=== PATIENT | female | born 1960 | race Caucasian/White ===

== ENCOUNTER 2019-05-21 15:48 | Emergency (ER) | payer BC, SELFPAY ==
[2019-05-21 16:35] VITALS: BP 111/70; PULSE 100; RESP 18; TEMP 36.9; O2SAT 96; BMI 12.9
--- NOTE | 2019-05-21 16:39 | ECG_ITS ---
Measurements Intervals [place] Rate: 87 P: 86 IL: 156 QRS: 91 QRSD: 96 T: 77 QT: 332 QTc: 399 SINUS RHYTHM RIGHT ATRIAL ENLARGEMENT [0.3mV P WAVE] POSSIBLE LEFT ATRIAL ENLARGEMENT [-0.1mV P WAVE IN V1/V2] BORDERLINE RIGHT AXIS DEVIATION [QRS AXIS > 90] POSSIBLE RIGHT VENTRICULAR CONDUCTION DELAY [RSR (QR) IN V1/V2] Compared to ECG 04/29/2018 08:27:43 Atrial abnormality now present Short [place] interval no longer present Electronically Signed On 05-22-2019 13:52:03 CRANE OPERATOR CAB by Winnie Farris M.D. [id number]
--- NOTE | 2019-05-21 16:39 | XR_ITS ---
WS: [id number] Chest PA view, 05/21/2019 Clinical Data: cough/congestion Comparison: PA and lateral chest, 03/04/2019. Findings: No nodules, masses or effusions are seen. The lungs show hyperexpansion especially in the l ower lobes. The heart is normal. The pulmonary vascularity is not increased. No pneumonia or pneumoth orax is seen. The diaphragms are flattened. XR/XR chest 1V portable [id number] Impression: Hyperinflation
[2019-05-21 17:11] LABS: Basophils % 0.3 %; Hematocrit 42.2 % (37.0-47.0); Hemoglobin 13.8 g/dL (11.5-15.3); Lymphocytes % 24.2 %; Mean Corpuscular HGB Conc 32.7 g/dL (30.0-36.0); Mean Corpuscular Hemoglobin 30.4 pg (28.0-34.0); Mean Platelet Volume 9.8 fL (7.4-10.4); Monocytes # 0.8 10^3/uL (0.2-0.9); Monocytes % 6.8 %; Neutrophils # 8.4 10^3/uL (1.8-7.7); Neutrophils % 68.5 %; Nucleated Red Blood Cells % 0 %; Platelet Count 301 10^3/cmm (130-400); Red Blood Count 4.54 10^6/uL (4.1-5.3); Red Cell Distribution Width 14.2 % (12.1-15.1); White Blood Count 12.3 10^3/uL (4.0-10.0)
[2019-05-21 17:36] LABS: Alanine Aminotransferase 7 U/L (0-33); Albumin Level 4.4 g/dL (3.5-5.2); Alkaline Phosphatase 97 IU/L (35-105); Anion Gap 16.4 (5-19); Aspartate Amino Transferase 16 U/L (0-32); Blood Urea Nitrogen 7 mg/dL (6-20); Carbon Dioxide 23 mmol/L (22-29); Chloride 100 mmol/L (98-107); Globulin 3.8 g/dL (1.3-4.6); Glucose 85 mg/dL (74-109); Potassium 3.4 mmol/L (3.5-5.1); Sodium 136 mmol/L (136-145); Total Bilirubin 0.4 mg/dL (0.15-1.2); Total Protein 8.2 g/dL (6.6-8.7)
[2019-05-21 17:37] LABS: Troponin(5th) Baseline 11 ng/mL (0-10)
--- NOTE | 2019-05-21 18:39 | ECG_ITS ---
Measurements Intervals [place] Rate: 99 P: 86 SD: 143 QRS: 91 QRSD: 93 T: 77 QT: 322 QTc: 415 SINUS RHYTHM RIGHT ATRIAL ENLARGEMENT [0.3mV P WAVE] POSSIBLE LEFT ATRIAL ENLARGEMENT [-0.1mV P WAVE IN V1/V2] BORDERLINE RIGHT AXIS DEVIATION [QRS AXIS > 90] POSSIBLE RIGHT VENTRICULAR CONDUCTION DELAY [RSR (QR) IN V1/V2] Compared to ECG 04/29/2018 08:27:43 Atrial abnormality now present Short SD interval no longer present Electronically Signed On 05-22-2019 14:11:38 CARPET LOOM FIXER by Winnie Farris M.D. [id number]
--- NOTE | 2019-05-21 19:31 | ED_ITS ---
Entered by Eloina Moscoso, acting as scribe for May 21, 2019 15:48 HPI - Chest Pain General: Chief Complaint: Chest Pain Stated Complaint: chest pains Time Seen by Provider: 05/21/19 19:31 Source: patient and family Mode of arrival: ambulatory History of Present Illness: HPI narrative: 59 y/o female presents to the ED with complaint of chest pain. Pt states she has had this pain all day. It is described as an ache in the left chest/rib area. Pt states this pain remains constant at 7/10. She has a hx of COPD and emphysema. MD complaint: chest discomfort Onset (ago): day(s) (today) Timing of current episode: constant and still present Onset: during rest Pain location: left chest Pain radiation: none Pain scale (0-10): 7 Quality: aching Relieving factors: nothing Associated symptoms: Deny abdominal pain, dyspnea, fever(s) or palpitations Review of Systems Const: Denies: fever or chills Eyes: Denies: change in vision ENMT: Denies: throat pain or mouth pain Card: Reports: chest pain; Denies: palpitations Resp: Denies: shortness of breath GI: Denies: abdominal pain or heartburn/indigestion : Denies: difficulty urinating Musc: Denies: back pain or joint pain Skin/Breast: Denies: rash Neuro: Denies: headache or behavioral changes Psych: Denies: depression Endo: Denies: excessive urination Sandeep/Lymph: Denies: easy bruising All/Imm: Denies: hives PFSH ED PFSH: Statuses (acute, chronic, etc) shown below reflect problem list status as previously entered and may not be historically accurate Medical History Alveolar emphysema of lung (Acute) COPD (chronic obstructive pulmonary disease) (Acute) Social History Smoking and tobacco status: current every day smoker Physical Exam Const: COMMON NORMALS: no apparent distress, oriented x3 and healthy appearing HENMT: COMMON NORMALS: normocephalic and external nose normal HEAD & SCALP: normocephalic NOSE: external nose normal Eye: COMMON NORMALS: PERRL PUPIL: Yes PERRL Neck/C-Spine: COMMON NORMALS: full ROM and no lymphadenopathy Chest: COMMONS NORMALS: inspection of chest normal; negative for palpation of chest normal (point tenderness to left lateral ) Resp: COMMON NORMALS: normal respiratory effort, no use of accessory muscles and clear to auscultation bilaterally AUSCULTATION: clear to auscultation bilaterally Cardio: COMMON NORMALS: regular rate and regular rhythm RATE: regular rate RHYTHM: regular rhythm GI: COMMON NORMALS: normal to inspection, nondistended, normoactive bowel sounds, soft to palpation, non-tender and no masses PALPATION: Yes soft Back/Pelvis: THORACIC SPINE/UPPER BACK: Yes normal to inspection Extremity: COMMON NORMALS: normal to inspection, full ROM and normal capillary refill Neuro: COMMON NORMALS: oriented x3 Psych: COMMON NORMALS: mental status grossly normal and cooperative Skin: COMMON NORMALS: no rashes or lesions noted GENERAL SKIN EXAM: no rashes or lesions noted Course Vital Signs: Vital signs: Vital Signs Temperature 98.5 F 05/21/19 16:35 Pulse Rate 100 05/21/19 16:35 Respiratory Rate 18 05/21/19 16:35 Blood Pressure 111/70 05/21/19 16:35 Pulse Oximetry 96 05/21/19 16:35 MDM - Chest Pain MDM Narrative: Medical decision making narrative: Patient presents with chest pain is likely muscular in nature. She is point tender over left chest wall this is the same pain she is having. She has no signs of cardiac cause and troponins are normal. Patient has no signs of pulmonary embolism or pneumonia. Patient is stable for discharge and is to follow-up with primary care doctor in 3 to 5 days and return if worsening. Lab Data: Labs: Lab Results 05/21/19 05/21/19 05/21/19 Range/Units 17:00 17:00 17:00 WBC 12.3 H (4.0-10.0) 10^3/ uL RBC 4.54 (4.1-5.3) 10^6/u L Hgb 13.8 (11.5-15.3) g/dL Hct 42.2 (37.0-47.0) % MCV 93.0 (81-99) fL MCH 30.4 (28.0-34.0) pg MCHC 32.7 (30.0-36.0) g/dL RDW 14.2 (12.1-15.1) % Plt Count 301 (130-400) 10^3/c mm MPV 9.8 (7.4-10.4) fL Neut % (Auto) 68.5 % Lymph % (Auto) 24.2 % [place] % (Auto) 6.8 % Eos % (Auto) 0.0 % Baso % (Auto) 0.3 % Neut # (Auto) 8.4 H (1.8-7.7) 10^3/u L Lymph # (Auto) 3.0 (0.8-4.8) 10^3/u L [place] # (Auto) 0.8 (0.2-0.9) 10^3/u L Eos # (Auto) 0.0 (0.0-0.8) 10^3/u L Baso # (Auto) 0.0 (0.0-0.1) 10^3/u L Nucleated RBC % (a uto) 0 % Nucleated RBCs # 0.0 /100WBC Sodium 136 (136-145) mmol/L Potassium 3.4 L (3.5-5.1) mmol/L Chloride 100 (98-107) mmol/L Carbon Dioxide 23 (22-29) mmol/L Anion Gap 16.4 (5-19) BUN 7 (6-20) mg/dL Creatinine 0.6 (0.5-0.9) mg/dL GFR Calculation 103.0 (90-130) mL/min Glucose 85 (74-109) mg/dL Calcium 10.0 (8.6-10.0) mg/Dl Total Bilirubin 0.4 (0.15-1.2) mg/dL AST 16 (0-32) U/L ALT 7 (0-33) U/L Alkaline Phosphata se 97 (35-105) IU/L Troponin T Baselin e 11 H (0-10) ng/mL Troponin T 120 Min taran (0-10) ng/mL Delta Troponin T (0-10) ABS# Total Protein 8.2 (6.6-8.7) g/dL Albumin 4.4 (3.5-5.2) g/dL Globulin 3.8 (1.3-4.6) g/dL 05/21/19 Range/Units 19:55 WBC (4.0-10.0) 10^3/ uL RBC (4.1-5.3) 10^6/u L Hgb (11.5-15.3) g/dL Hct (37.0-47.0) % MCV (81-99) fL MCH (28.0-34.0) pg MCHC (30.0-36.0) g/dL RDW (12.1-15.1) % Plt Count (130-400) 10^3/c mm MPV (7.4-10.4) fL Neut % (Auto) % Lymph % (Auto) % [place] % (Auto) % Eos % (Auto) % Baso % (Auto) % Neut # (Auto) (1.8-7.7) 10^3/u L Lymph # (Auto) (0.8-4.8) 10^3/u L [place] # (Auto) (0.2-0.9) 10^3/u L Eos # (Auto) (0.0-0.8) 10^3/u L Baso # (Auto) (0.0-0.1) 10^3/u L Nucleated RBC % (a uto) % Nucleated RBCs # /100WBC Sodium (136-145) mmol/L Potassium (3.5-5.1) mmol/L Chloride (98-107) mmol/L Carbon Dioxide (22-29) mmol/L Anion Gap (5-19) BUN (6-20) mg/dL Creatinine (0.5-0.9) mg/dL GFR Calculation (90-130) mL/min Glucose (74-109) mg/dL Calcium (8.6-10.0) mg/Dl Total Bilirubin (0.15-1.2) mg/dL AST (0-32) U/L ALT (0-33) U/L Alkaline Phosphata se (35-105) IU/L Troponin T Baselin e (0-10) ng/mL Troponin T 120 Min taran 12.01 H (0-10) ng/mL Delta Troponin T 1.01 (0-10) ABS# Total Protein (6.6-8.7) g/dL Albumin (3.5-5.2) g/dL Globulin (1.3-4.6) g/dL Imaging Data^: CXR: Attestation: I personally reviewed and interpreted this imaging study as follows: My impression: no acute abnormality EKG Data^: EKG 1: Attestation: I personally reviewed and interpreted this EKG as follows: EKG interpretation date: 05/21/19 EKG interpretation time: 16:39 Interpretation: nsr hr [address] or t wave abnormalities EKG 2: Attestation: I personally reviewed and interpreted this EKG as follows: EKG interpretation date: 05/21/19 EKG interpretation time: 19:11 Interpretation: nsr hr [address] or t wave abnormalties Discharge Plan Discharge Patient Disposition: Home, Self-Care Clinical Impression: Chest wall pain Condition: Stable Prescriptions: New EC-Naprosyn 500 mg tablet,delayed release (DR/EC) 500 mg PO BID PRN (Reason: pain) Qty: 20 RF: 0 Discharge Orders: Discharge Order (Routine); Ordered 05/21/19 Ordered By: Sly Grimes Referrals: Irina Caruso, LEACHER-C [Primary Care Provider] - 4-7 days Discharge Diet: Advance as tolerated Discharge Activity: Resume usual activity Coding Level of Care Code ED Pattern Cutter for Chg Fwd Exam Problem Focused The documentation recorded by the Danis joe Ashley, accurately reflects the service I personally performed and the decisions made by Cornelio meek Korby, MD May 21, 2019 15:48
[2019-05-21 20:18] LABS: Troponin 5 2HR 12.01 ng/mL (0-10)
[2019-05-21 20:20] LABS: Troponin 5 2HR Delta 1.01 ABS# (0-10)
[2019-05-21] MEDS: HYDROcodone-acetaminophen 7.5-325 mg Tablet 1 TAB PO (20:27)
[2019-05-21 20:30] VITALS: BP 99/74; PULSE 86; RESP 14; O2SAT 94
[2019-05-21 21:06] VITALS: BP 103/81; PULSE 91; RESP 16; TEMP 36.5; O2SAT 94
== END 2019-05-21 21:10 | disposition home or self-care (01) ==
PROVIDERS: Physician Assistant; Emergency Provider Emergency Medicine; Family Provider Nurse Practitioner; PCP Nurse Practitioner
DX: R07.89 Other chest pain (principal); J44.9 Chronic obstructive pulmonary disease, unspecified; F17.210 Nicotine dependence, cigarettes, uncomplicated
CPT/HCPCS: 36415; 71045; 80053; 84484; 85025; 93005; 99282

== ENCOUNTER → 2019-09-18 15:56 | Outpatient (BNVA) | payer BC, SELFPAY | PROVIDERS: Family Provider Nurse Practitioner; PCP Nurse Practitioner; Visit Provider Nurse Practitioner | DX: R05 Cough (principal); J44.1 Chronic obstructive pulmonary disease with (acute) exacerbation | CPT/HCPCS: 71046 ==

== ENCOUNTER 2019-10-16 12:42 | Outpatient (CLI) | payer BC, SELFPAY ==
--- NOTE | 2019-10-16 13:00 | CT_ITS ---
WS: [id number] CT CHEST WITH INTRAVENOUS CONTRAST HISTORY: Abnormal chest radiograph. COPD. TECHNIQUE: Contiguous 5 mm axial imaging performed on the thorax. Coronal and sagittal reformats are submitted. All CT scans at [facility] use at least one of these dose optimization techniq ues: automated exposure control; mA and/or kV adjustment per patient size (includes targeted exams wh ere dose is matched to clinical indication); or iterative reconstruction. CONTRAST: Omnipaque 300; 75 mL IV. DLP: 303.19 mGy.cm COMPARISON: 04/08/2018 and chest radiograph 09/18/2019 Lungs and central airway: Severe pulmonary hyperexpansion and emphysema. Biapical pleural thickening and scarring is stable. New groundglass and subsolid opacifications and scattered irregular solid opa cification are noted in the mid and lower lungs. Most significant at the lung bases and greatest on t he LEFT. Additional irregular consolidation noted at the lingula. There is chronic atelectasis of the RIGHT middle lobe. Multilobar bronchiectasis. Pleura: Normal. No pleural effusion. Heart and pericardium: Normal size heart. No pericardial effusion. Mediastinum and mirna: 9 mm RIGHT hilar lymph node. No significant adenopathy. Vessels: Mild atherosclerosis aorta. Pulmonary artery size is normal. Chest wall and lower neck: Subcentimeter LEFT thyroid nodule. Upper abdomen: Negative. Osseous structures: Increase in the thoracic kyphosis. No osteoblastic or osteolytic bone disease. CT/CT chest w con* [id number] IMPRESSION: 1. Severe chronic emphysema. 2. New multi lobar areas of groundglass attenuation and irregular consolidatio ns, most significant at the LEFT lung base. Favor this is probably acute inflam mation or pneumonia superimposed on the chronic lung disease. Recommend follow- up chest CT in 3 months to document resolution or progression. 3. Stable chronic atelectasis RIGHT middle lobe. 4. Multi lobar bronchiectasis.
[2019-10-16] MEDS: iohexol 300 mg/mL 100 mL Btl IV (13:51)
== END 2019-10-16 12:43 | disposition home or self-care (01) ==
LOC: RAD 12:46
PROVIDERS: Family Provider Nurse Practitioner; PCP Nurse Practitioner; Visit Provider Nurse Practitioner
DX: R93.89 Abnormal findings on diagnostic imaging of other specified body structures (principal); J43.9 Emphysema, unspecified; J98.11 Atelectasis; J47.9 Bronchiectasis, uncomplicated
CPT/HCPCS: 71260

== ENCOUNTER → 2019-10-22 14:52 | Outpatient (BNVA) | payer BC, SELFPAY | PROVIDERS: Family Provider Nurse Practitioner; PCP Nurse Practitioner; Visit Provider Nurse Practitioner | DX: E55.9 Vitamin D deficiency, unspecified (principal); B02.29 Other postherpetic nervous system involvement | CPT/HCPCS: 80053; 82306; 82607; 83735 ==

== ENCOUNTER → 2019-12-09 11:25 | Outpatient (BNVA) | payer BC, SELFPAY | PROVIDERS: Family Provider Nurse Practitioner; PCP Nurse Practitioner; Visit Provider Nurse Practitioner | DX: R05 Cough (principal); J44.9 Chronic obstructive pulmonary disease, unspecified | CPT/HCPCS: 71046; 80053; 85025; 87635 ==

== ENCOUNTER 2020-01-20 08:38 | Outpatient (CLI) | payer BC, SELFPAY ==
--- NOTE | 2020-01-20 09:00 | CT_ITS ---
WS: [id number] CT CHEST WITH INTRAVENOUS CONTRAST HISTORY: abnormal CT chest October 2019 TECHNIQUE: Contiguous 5 mm axial imaging performed on the thorax. Coronal and sagittal reformats are submitted. All CT scans at [facility] use at least one of these dose optimization techniq ues: automated exposure control; mA and/or kV adjustment per patient size (includes targeted exams wh ere dose is matched to clinical indication); or iterative reconstruction. CONTRAST: Omnipaque 300; 95 mL IV. DLP: 585.0 mGycm COMPARISON: 10/16/2019, 04/08/2018 Lungs and central airway: Severe chronic emphysema. There are numerous areas of irregular nodular den sities and multiple ill-defined nodules within both lungs. Some of these nodules have improved since 10/16/2019. There are new areas of airspace disease and consolidation and nodularity which are multi lo bar. Extensive biapical pleural thickening. Partial atelectasis and bronchiectasis in the RIGHT middl e lobe is similar to prior studies. Benign granuloma RIGHT lower lobe. 5 mm round nodule in the perip andres of the LEFT lower lobe, image 46 of series 3 has increased slightly in size and is more rounded. Pleura: Normal. No pleural effusion. Heart and pericardium: Normal size heart with no pericardial effusion. Mediastinum and mirna: No change in the 9 mm RIGHT suprahilar lymph node. Additional smaller hilar lym ph nodes are still evident. Vessels: Mild atherosclerosis aorta. No aneurysm. Normal size pulmonary artery. Chest wall and lower neck: Subcentimeter LEFT thyroid nodule is stable over multiple prior studies. Upper abdomen: Prior cholecystectomy. Osseous structures: Increase in thoracic kyphosis. Mild osteopenia. CT/CT chest w con* [id number] IMPRESSION: 1. Severe chronic emphysema. 2. Continued multi lobar opacifications with nodularity, groundglass attenuati on and ill-defined opacifications. Some of these opacifications have improved s hilaria 10/16/2019 but there are new areas of opacification. More rounded nodule sendy suring 5 mm LEFT lower lobe. Recommend [address] follow-up of IV contras t. Fever majority of these changes are probably postinflammatory. Early neoplas m is not excluded. 3. Partial atelectasis and bronchiectasis RIGHT middle lobe. 4. Prior cholecystectomy. 5. Indeterminate but stable RIGHT hilar lymph node at 9 mm.
[2020-01-20] MEDS: iohexol 300 mg/mL 100 mL Btl IV (09:08)
== END 2020-01-20 08:39 | disposition home or self-care (01) ==
LOC: RADWPI 08:44
PROVIDERS: Family Provider Nurse Practitioner; PCP Nurse Practitioner; Visit Provider Nurse Practitioner
DX: R93.89 Abnormal findings on diagnostic imaging of other specified body structures (principal); J43.9 Emphysema, unspecified; R59.9 Enlarged lymph nodes, unspecified; J98.11 Atelectasis; J47.9 Bronchiectasis, uncomplicated
CPT/HCPCS: 71260; Q9967

== ENCOUNTER → 2020-02-09 14:06 | Outpatient (BNVA) | payer BC, SELFPAY | PROVIDERS: Family Provider Nurse Practitioner; PCP Nurse Practitioner; Visit Provider Nurse Practitioner | DX: J44.1 Chronic obstructive pulmonary disease with (acute) exacerbation (principal) | CPT/HCPCS: 71046 ==

== ENCOUNTER 2020-02-15 12:51 | Emergency (ER) | payer BC, SELFPAY ==
--- NOTE | 2020-02-15 13:03 | XRR_ITS ---
PROCEDURE INFORMATION: Exam: XR Chest, 1 View Exam date and time: 02/15/2020 2:21 PM Age: 59 years old Clinical indication: Patient HX: Chest wall pain with cough; Additional info: Cp TECHNIQUE: Imaging protocol: XR of the chest Views: 1 view. COMPARISON: CR XR chest 2V* [id number] 02/09/2020 2:05 PM FINDINGS: Lungs: COPD, interstitial disease, and bronchiectasis. Mild bilateral airspace disease with interval improvement in right perihilar airspace disease. Pleural space: No significant pleural effusion. Heart/Mediastinum: Enlargement of the central pulmonary arteries. Diminished heart size. Bones/joints: Osteopenia and degenerative change. Other findings: . XR/XR chest 1V portable [id number] IMPRESSION: 1. COPD, interstitial disease, and bronchiectasis. 2. Mild bilateral airspace disease with interval improvement in right perihilar airspace disease.
[2020-02-15 13:09] VITALS: BP 97/65; PULSE 74; RESP 25; TEMP 36.7; O2SAT 99; BMI 12.4
[2020-02-15 14:55] LABS: Basophils # 0.1 10^3/uL (0.0-0.1); Basophils % 0.4 %; Hematocrit 39.4 % (37.0-47.0); Hemoglobin 12.9 g/dL (11.5-15.3); Lymphocytes # 2.5 10^3/uL (0.8-4.8); Lymphocytes % 17.8 %; Mean Corpuscular HGB Conc 32.7 g/dL (30.0-36.0); Mean Corpuscular Hemoglobin 29.9 pg (28.0-34.0); Mean Corpuscular Volume 91.4 fL (81-99); Mean Platelet Volume 9.1 fL (7.4-10.4); Monocytes # 0.8 10^3/uL (0.2-0.9); Monocytes % 5.7 %; Neutrophils # 10.41 10^3/uL (1.8-7.7); Neutrophils % 75.7 %; Nucleated Red Blood Cells % 0 %; Platelet Count 426 10^3/cmm (130-400); Red Blood Count 4.31 10^6/uL (4.1-5.3); Red Cell Distribution Width 16.4 % (12.1-15.1); White Blood Count 13.8 10^3/uL (4.0-10.0)
[2020-02-15] MEDS: ondansetron 2 mg/ML SDV 2 mL 4 MG IVP (14:58)
[2020-02-15 15:00] VITALS: RESP 22
[2020-02-15] MEDS: morphine 4 mg/mL SDV 1 mL IVP (15:00)
[2020-02-15 15:08] VITALS: PULSE 93; RESP 20; O2SAT 94
[2020-02-15] MEDS: ipratropium-albuterol 3 mL Neb INHALATION (15:08)
[2020-02-15 15:13] VITALS: PULSE 94
--- NOTE | 2020-02-15 15:19 | W.ED.SOB ---
HPI - SOB/Dyspnea General: Chief Complaint: Shortness of Breath/Dyspnea Stated Complaint: SOB Time Seen by Provider: 02/15/20 13:39 Source: patient Mode of arrival: ambulatory Limitations: no limitations History of Present Illness: HPI Narrative: 59-year-old female states she has had a cough along with chest pains and fevers over the last 4 to 5 days. Patient was recently seen and diagnosed a right-sided pneumonia and placed on antibiotics. She states she is continued to have a severe cough and a sharp right-sided chest pain is worse with her cough and with palpation. Patient here is in no distress and not requiring any oxygen. She denies any vomiting or diarrhea. Denies any worsening improving factors at this time. Associated symptoms: Reports chest pain; Deny abdominal pain, fever(s), nausea or vomiting Review of Systems Const: Denies: fever(s), chills, body aches or change in appetite Eyes: Denies: blurry vision or eye discomfort ENMT: Denies: throat pain or dental pain Card: Reports: chest pain Resp: Reports: dyspnea and non-productive cough GI: Denies: abdominal pain, nausea, vomiting or diarrhea : Denies: dysuria Musc: Denies: neck pain or back pain Skin/Breast: Denies: rash Neuro: Denies: headache(s) Psych: Denies: depression Sandeep/Lymph: Denies: easy bruising All/Imm: Denies: urticaria PFSH ED PFSH: Medical History (Updated 02/15/20 @ 15:41 by Syl Grimes MD) Alveolar emphysema of lung COPD (chronic obstructive pulmonary disease) Neuralgia, post-herpetic Surgical History History of cholecystectomy History of hysterectomy Family History Other CAD (coronary artery disease) COPD (chronic obstructive pulmonary disease) Cancer Denies family history of Bleeding disorder Social History Smoking and tobacco status: current every day smoker Second hand smoke exposure: Yes Smoking risk assessment/counseling performed?: Yes Alcohol intake: never Desire information about alcohol rehabilitation?: No Counseling given: No Desire information about substance/drug rehabilitation?: No Counseling given: No Adopted: No Caregiver/support person: No Lives independently: Yes Household members: spouse Marital status: Number of children: 3 service: No Current occupational status: employed Current occupation: [employer] History of recent travel: No Current gender identity: Female Physical Exam Const: COMMON NORMALS: no acute distress, patient oriented x3 and healthy appearing HENMT: COMMON NORMALS: normocephalic and atraumatic HEAD & SCALP: normocephalic and atraumatic Eye: COMMON NORMALS: Equal, round and reactive pupils present and EOMs intact bilaterally PUPIL: Yes Equal, round and reactive pupils present Neck/C-Spine: COMMON NORMALS: full ROM and supple Chest: COMMONS NORMALS: normal inspection of the chest and normal palpation of entire chest wall Resp: COMMON NORMALS: normal respiratory effort, No retractions, No use of accessory muscles and clear to auscultation bilaterally AUSCULTATION: clear to auscultation bilaterally Cardio: COMMON NORMALS: regular rate, regular rhythm and No murmurs present (Cardio) RATE: regular rate RHYTHM: regular rhythm GI: COMMON NORMALS: Normal to inspection, nondistended, normoactive bowel sounds present, Soft to palpation, non-tender and no masses PALPATION: Yes Soft to palpation Extremity: COMMON NORMALS: normal to inspection and full ROM Neuro: COMMON NORMALS: patient oriented x3, moves all extremities and no focal motor deficits Psych: COMMON NORMALS: mental status grossly normal, Normal thought process present and cooperative THOUGHT PROCESS: Normal thought process present Skin: COMMON NORMALS: no rashes or lesions noted and no wounds GENERAL SKIN EXAM: no rashes or lesions noted Course Vital Signs: Vital signs: Vital Signs Temperature 98.0 F 02/15/20 13:09 Pulse Rate 94 02/15/20 15:13 Respiratory Rate 20 H 02/15/20 15:08 Blood Pressure 97/65 02/15/20 13:09 Pulse Oximetry 94 02/15/20 15:08 MDM - SOB/Dyspnea MDM Narrative: Medical decision making narrative: 59-year-old female who presents here with lateral chest pain along with cough and dyspnea. X-ray shows much improved pneumonia and she is to continue antibiotics. She is point tender on exam her pain is likely from coughing. She has no signs of pulmonary embolism. Patient's EKG here is normal. She is to continue antibiotics we will place her on steroids along with pain meds for home. She is to follow-up with PCP in 3 to 5 days return if worsening. Lab Data: Labs: Lab Results 02/15/20 02/15/20 Range/Units 14:44 14:44 WBC 13.8 H (4.0-10.0) 10^3/ uL RBC 4.31 (4.1-5.3) 10^6/u L Hgb 12.9 (11.5-15.3) g/dL Hct 39.4 (37.0-47.0) % MCV 91.4 (81-99) fL MCH 29.9 (28.0-34.0) pg MCHC 32.7 (30.0-36.0) g/dL RDW 16.4 H (12.1-15.1) % Plt Count 426 H (130-400) 10^3/c mm MPV 9.1 (7.4-10.4) fL Neut % (Auto) 75.7 % Lymph % (Auto) 17.8 % Long % (Auto) 5.7 % Eos % (Auto) 0.0 % Baso % (Auto) 0.4 % Neut # (Auto) 10.41 H (1.8-7.7) 10^3/u L Lymph # (Auto) 2.5 (0.8-4.8) 10^3/u L Long # (Auto) 0.8 (0.2-0.9) 10^3/u L Eos # (Auto) 0.0 (0.0-0.8) 10^3/u L Baso # (Auto) 0.1 (0.0-0.1) 10^3/u L Nucleated RBC % (a uto) 0 % Nucleated RBCs # 0.0 /100WBC Sodium 134 L (136-145) mmol/L Potassium 4.6 (3.5-5.1) mmol/L Chloride 100 (98-107) mmol/L Carbon Dioxide 21 L (22-29) mmol/L Anion Gap 17.6 (5-19) BUN 15 (6-20) mg/dL Creatinine 0.7 (0.5-0.9) mg/dL GFR Calculation 86.2 L (90-130) mL/min Glucose 90 (65-115) mg/dL Calculated Osmolal ity 278 L (285-295) mOsm/k g Calcium 10.0 (8.5-10.5) mg/dL Total Bilirubin 0.3 (0.15-1.2) mg/dL AST 11 (0-32) U/L ALT 7 (0-33) U/L Alkaline Phosphata se 104 (35-105) IU/L NT-Pro-B Natriuret Pep 52 (0-125) pg/mL Total Protein 7.7 (6.6-8.7) g/dL Albumin 3.2 L (3.5-5.2) g/dL Globulin 4.5 (1.3-4.6) g/dL Imaging Data^: CXR: Radiologist's impression: [address] [address] XRay Report Signed Patient: Allison Peoples Unit #: [id number] : 1960 Age/Sex: 59 / F ADM Date: 02/15/20 Loc: ER Room/Bed: Attending Dr: Ordering Provider/Ordering MD: Sly Grimes MD Date of Service: 02/15/20 Procedure(s): XR chest 1V portable [id number] Accession Number(s): [id number] Report Number: [id number] PROCEDURE INFORMATION: Exam: XR Chest, 1 View Exam date and time: 02/15/2020 2:21 PM Age: 59 years old Clinical indication: Patient HX: Chest wall pain with cough; Additional info: Cp TECHNIQUE: Imaging protocol: XR of the chest Views: 1 view. COMPARISON: CR XR chest 2V* [id number] 02/09/2020 2:05 PM FINDINGS: Lungs: COPD, interstitial disease, and bronchiectasis. Mild bilateral airspace disease with interval improvement in right perihilar airspace disease. Pleural space: No significant pleural effusion. Heart/Mediastinum: Enlargement of the central pulmonary arteries. Diminished heart size. Bones/joints: Osteopenia and degenerative change. Other findings: . XR/XR chest 1V portable [id number] IMPRESSION: 1. COPD, interstitial disease, and bronchiectasis. 2. Mild bilateral airspace disease with interval improvement in right perihilar airspace disease. EKG Data^: EKG 1: Attestation: I personally reviewed and interpreted this EKG as follows: EKG Interpretation Date: 02/15/20 EKG interpretation time: 14:46 Interpretation: sinus tach hr [address] or t wave abnormalities qrs 97 qtc 455 Discharge Plan Discharge Patient Disposition: Home Clinical Impression: Community acquired pneumonia COPD (chronic obstructive pulmonary disease) Qualifiers: COPD type: unspecified COPD Qualified Code(s): J44.9 - Chronic obstructive pulmonary disease, unspecified Condition: Stable Prescriptions: New EC-Naprosyn 500 mg tablet,delayed release (DR/EC) 500 mg PO BID PRN (Reason: pain) Qty: 20 RF: 0 [place] 5-325 mg tablet 1 tab PO Q6H PRN (Reason: pain) Qty: 14 RF: 0 prednisone 50 mg tablet 50 mg PO DAILY Qty: 5 RF: 0 No Action Spiriva with HandiHaler 18 mcg capsule, w/inhalation device 1 ea INHALATION DAILY RF: 0 doxycycline hyclate [Vibramycin] 100 mg capsule 100 mg PO BID Qty: 20 RF: 0 budesonide [Pulmicort] 0.5 mg/2 mL suspension for nebulization 0.5 mg INHALATION BID Qty: 120 RF: 0 albuterol sulfate 2.5 mg /3 mL (0.083 %) solution for nebulization 2.5 mg inhalation Q4H Qty: 300 RF: 0 gabapentin 300 mg capsule 300 mg PO BID Qty: 60 RF: 2 Advair Diskus 500-50 mcg/dose blister with device 1 inh INHALATION BID RF: 0 Discharge Orders: Discharge Order (Routine); Ordered 02/15/20 Ordered By: Sly Grimes Referrals: Irina Caruso, CAREER SERVICES COORDINATOR-C [Primary Care Provider] - 1-3 days Discharge Diet: Advance as tolerated Discharge Activity: Resume usual activity Patient Instructions: Bacterial Pneumonia (ED) Coding Level of Care Code ED Personalized Living Assistant for Chg Fwd Exam Comprehensive
[2020-02-15 15:23] LABS: Alanine Aminotransferase 7 U/L (0-33); Albumin Level 3.2 g/dL (3.5-5.2); Alkaline Phosphatase 104 IU/L (35-105); Anion Gap 17.6 (5-19); Aspartate Amino Transferase 11 U/L (0-32); Blood Urea Nitrogen 15 mg/dL (6-20); Carbon Dioxide 21 mmol/L (22-29); Chloride 100 mmol/L (98-107); Creatinine Clr Calc Pharmacy 48.8909; Globulin 4.5 g/dL (1.3-4.6); Glomerular Filtration Rate 86.2 mL/min (90-130); Glucose 90 mg/dL (65-115); NT Pro B Type Natriuretic Pept 52 pg/mL (0-125); Osmolality Calculated 278 mOsm/kg (285-295); Potassium 4.6 mmol/L (3.5-5.1); Sodium 134 mmol/L (136-145); Total Bilirubin 0.3 mg/dL (0.15-1.2); Total Protein 7.7 g/dL (6.6-8.7)
[2020-02-15 16:15] VITALS: BP 93/67; PULSE 95; RESP 24; O2SAT 91
[2020-02-15] MEDS: ketorolac 30 mg/mL INJ 15 MG IVP (16:18)
[2020-02-18 00:01] LABS: Quest SARS-CoV-2 RNA NOT DETECTED (NOT DETECTED)
--- NOTE | 2020-02-18 09:29 | PC.NURSE ---
Pt called and notified of negative COVID result.
== END 2020-02-15 16:15 | disposition home or self-care (01) ==
PROVIDERS: Emergency Provider Emergency Medicine; PCP Nurse Practitioner
DX: J44.9 Chronic obstructive pulmonary disease, unspecified (principal); F17.210 Nicotine dependence, cigarettes, uncomplicated
CPT/HCPCS: 12345; 36415; 71045; 80053; 83880; 85025; 87040; 87635; 94640; 96374; 96375; 99282; 99283; J1885; J2270; J2405; J2930

== ENCOUNTER 2020-02-29 15:21 | Emergency (ER) | payer BC, SELFPAY ==
[2020-02-29 15:21] VITALS: BP 110/63; PULSE 91; RESP 16; TEMP 36.7; O2SAT 97; BMI 12.1
--- NOTE | 2020-02-29 15:32 | ECG_ITS ---
[facility] Test Date: 2020-02-29 Pat Name: Allison Peoples Department: Room: Gender: Female Physician Aide: : 1960 Requested By: Cony Adballa Order Number: [id number] Peg MD: Ben Vora M.D. Measurements Intervals [place] Rate: 82 P: 81 MN: 97 QRS: 86 QRSD: 94 T: 72 QT: 335 QTc: 393 Interpretive Statements SINUS RHYTHM WITH SHORT MN INTERVAL Compared to ECG 05/21/2019 19:11:19 Short MN interval now present Atrial abnormality no longer present Electronically Signed On 02-29-2020 19:50:53 CDT by Ben Vora M.D. [id number]
--- NOTE | 2020-02-29 15:33 | XRR_ITS ---
PROCEDURE INFORMATION: Exam: XR Chest, 1 View Exam date and time: 02/29/2020 3:52 PM Age: 59 years old Clinical indication: Cough and shortness of breath; Additional info: Chest pain TECHNIQUE: Imaging protocol: XR of the chest Views: 1 view. COMPARISON: CR (CHEST, ) 02/15/2020 2:14 PM FINDINGS: Lungs: There are lung changes with COPD with hyperinflation, chronic interstitial lung disease, multiple lucencies compatible with bullous change, and bronchiectasis. There are several nodular densities in the lung bases. One in lateral left chest is unchanged. There is better defined more medial nodule in left lung base. There is unchanged nodule in right lung base. Pleural space: No significant visible pleural effusion. No pneumothorax. Heart/Mediastinum: No significant cardiomegaly. Bones/joints: No acute finding. XR/XR chest 1V portable [id number] IMPRESSION: Extensive chronic lung changes. Several nodular densities in lung bases 1 of which in more medial left lung base is not well visualized on prior examination 02/15/2020. Recommend follow-up.
--- NOTE | 2020-02-29 15:33 | CTR_ITS ---
PROCEDURE INFORMATION: Exam: CT Head Without Contrast Exam date and time: 02/29/2020 3:46 PM Age: 59 years old Clinical indication: Syncope and collapse; Patient HX: Syncope v seizure w n/v; Additional info: Seizure vs syncope TECHNIQUE: Imaging protocol: Computed tomography of the head without contrast. Radiation optimization: All CT scans at this facility use at least one of these dose optimization techniques: automated exposure control; mA and/or kV adjustment per patient size (includes targeted exams where dose is matched to clinical indication); or iterative reconstruction. COMPARISON: No relevant prior studies available. RADIATION DOSE METRICS: Total DLP (mGy-cm): 667.38 FINDINGS: Brain: There is no acute intracranial hemorrhage. No extra-axial fluid collection. No evidence of acute infarct. [place] white differentiation is intact. There is no evidence of mass. There is no mass effect or midline shift. Cerebral ventricles: No ventriculomegaly. Bones/joints: No acute fracture. Paranasal sinuses: Visualized sinuses are unremarkable. No fluid levels. Mastoid air cells: No significant mastoid effusion. Soft tissues: Unremarkable as visualized. CT/CT head wo con* [id number] IMPRESSION: No evidence of acute intracranial abnormality. No acute hemorrhage. No evidence of mass or acute infarct. Radiation Dose CTDIVOL = (mGy): DLP = 667.38 (mGy-cm)
--- NOTE | 2020-02-29 15:57 | ED_ITS ---
Documented by User: Cony Patrick MD 03/02/20 21:52 HPI - Nausea/Vomiting/Diarrhea General: Chief complaint: Nausea/Vomiting/Diarrhea Stated complaint: N/V; SYNCOPE Time Seen by Provider: 02/29/20 15:27 History of Present Illness: HPI Narrative: This patient is a 59-year-old female who presents today with a syncopal episode and vomiting. Apparently she was doing okay this morning and went [facility]. EMS says that her said that she was standing by the couch, grabbed at her chest and complained of chest pain and then fell backwards onto the couch. Per what EMS got from the she had what sounded like shaking and possible seizure activity for about 2 minutes. They do not think she was postictal on their arrival. When she woke up from this episode she reportedly started vomiting and was repeatedly vomiting and retching for the first part of the EMS encounter. Zofran did not help. She has had Phenergan and no is a little better but still feels very sick. She has been on antibiotics for pneumonia. She was first on doxycycline and a steroid and is now on Levaquin and a steroid. She has never had anything like this before. She has not had a fever. She has had a negative Covid test on a recent ER visit for the same complaint of pneumonia. MD elicited complaint: nausea, vomiting and other (Syncope versus seizure) Pertinent past history: other (An esophageal problem causing her to have difficulty keeping weight on) Onset (ago): hour(s) Description of vomiting: resolved Associated nausea: Yes Associated abdominal pain: Yes Location of pain: Diffuse Radiation: does not radiate Pain consistency: constant Severity: moderate Quality: other (Sore from retching) Exacerbating factors: none Relieving factors: none Associated symtoms: Reports chest pain, nausea, syncope and other (Denies Covid exposure); Denies change in vision, fatigue, headache(s) or malaise Review of Systems General: Reports: 10 or more systems reviewed and unremarkable except in HPI and below Const: Denies: fever(s), chills, fatigue or malaise Eyes: Denies: change in vision ENMT: Denies: odynophagia Card: Reports: chest pain and syncope; Denies: swelling of feet/ankles Resp: Denies: dyspnea, productive cough or non-productive cough GI: Reports: nausea and vomiting : Denies: flank pain or difficulty voiding Musc: Denies: neck pain or back pain Skin/Breast: Denies: rash Neuro: Reports: seizure-like activity; Denies: headache(s), numbness in extremities or weakness in extremities Sandeep/Lymph: Denies: easy bruising or easy bleeding PFSH ED PFSH: Medical History Alveolar emphysema of lung COPD (chronic obstructive pulmonary disease) Neuralgia, post-herpetic Surgical History History of cholecystectomy History of hysterectomy Family History Other CAD (coronary artery disease) COPD (chronic obstructive pulmonary disease) Cancer Denies family history of Bleeding disorder Social History Smoking and tobacco status: current every day smoker cigarettes Packs smoked per day: 0.5 Years cigarettes smoked: 25 [ Other cigarette details: Hx of 1PPD x 23 Years ] Second hand smoke exposure: Yes Smoking risk assessment/counseling performed?: Yes Alcohol intake: never Desire information about alcohol rehabilitation?: No Counseling given: No Desire information about substance/drug rehabilitation?: No Counseling given: No Adopted: No Caregiver/support person: No Lives independently: Yes Household members: spouse Marital status: Number of children: 3 service: No Current occupational status: employed Current occupation: [employer] History of recent travel: No Current gender identity: Female Physical Exam Const: COMMON NORMALS: no acute distress, patient oriented x3, no limitations and alert GENERAL APPEARANCE: cooperative and ill appearing NUTRITIONAL APPEARANCE: thin HENMT: HEAD & SCALP: normal to inspection FACE & SINUS: normal facial exam Eye: GENERAL EYE: appearance normal, both eyes and all related structures Neck/C-Spine: COMMON NORMALS: supple, no meningeal signs and no JVD Chest: COMMONS NORMALS: normal inspection of the chest Resp: COMMON NORMALS: normal respiratory effort, No use of accessory muscles and clear to auscultation bilaterally AUSCULTATION: clear to auscultation bilaterally Cardio: COMMON NORMALS: no JVD, regular rate, regular rhythm and No murmurs present (Cardio) RATE: regular rate RHYTHM: regular rhythm GI: COMMON NORMALS: Normal to inspection, nondistended, normoactive bowel sounds present, Soft to palpation and non-tender INSPECTION: Yes normal to inspection AUSCULTATION: Yes normoactive bowel sounds PALPATION: Yes Soft to palpation Back/Pelvis: COMMON NORMALS: thoracic and lumbar spine normal to inspection Extremity: COMMON NORMALS: normal to inspection Neuro: COMMON NORMALS: patient oriented x3, moves all extremities, no focal motor deficits and no sensory deficits noted SENSORIUM/ORIENTATION: Yes alert MENINGEAL SIGNS: Yes no meningeal signs Psych: COMMON NORMALS: mental status grossly normal, cooperative and normal affect Skin: COMMON NORMALS: no rashes or lesions noted and turgor normal GENERAL SKIN EXAM: no rashes or lesions noted and turgor normal Course ED course: Patient presents with a fairly concerning episode of sharp chest pain and then passing out. They think this is more consistent with syncope than seizure. Room air sats are about 95%. She has not had any other Covid symptoms. She is being treated currently for pneumonia. EKG shows a sinus rhythm. Labs to this point are negative but we are waiting for a second troponin and a D-dimer. Vital Signs: Vital signs: Vital Signs Temperature 98.0 F 02/29/20 15:21 Pulse Rate 69 02/29/20 22:17 Respiratory Rate 20 H 02/29/20 20:01 Blood Pressure 106/65 02/29/20 22:17 Pulse Oximetry 95 02/29/20 22:17 MDM - Nausea/Vomiting/Diarrhea Lab Data: Labs: Lab Results 02/29/20 02/29/20 02/29/20 Range/Units 16:30 16:30 16:30 WBC 22.4 H (4.0-10.0) 10^3/ uL RBC 3.94 L (4.1-5.3) 10^6/u L Hgb 11.9 (11.5-15.3) g/dL Hct 37.1 (37.0-47.0) % MCV 94.2 (81-99) fL MCH 30.2 (28.0-34.0) pg MCHC 32.1 (30.0-36.0) g/dL RDW 17.0 H (12.1-15.1) % Plt Count 395 (130-400) 10^3/c mm MPV 8.9 (7.4-10.4) fL Neut % (Auto) 87.7 % Lymph % (Auto) 6.2 % Josephine % (Auto) 5.0 % Eos % (Auto) 0.0 % Baso % (Auto) 0.2 % Neut # (Auto) 19.62 H (1.8-7.7) 10^3/u L Lymph # (Auto) 1.4 (0.8-4.8) 10^3/u L Josephine # (Auto) 1.1 H (0.2-0.9) 10^3/u L Eos # (Auto) 0.0 (0.0-0.8) 10^3/u L Baso # (Auto) 0.0 (0.0-0.1) 10^3/u L Nucleated RBC % (a uto) 0 % Nucleated RBCs # 0.0 /100WBC D-Dimer (0-0.59) ug/mIFE U Sodium 138 (136-145) mmol/L Potassium 3.7 (3.5-5.1) mmol/L Chloride 104 (98-107) mmol/L Carbon Dioxide 22 (22-29) mmol/L Anion Gap 15.7 (5-19) BUN 23 H (6-20) mg/dL Creatinine 0.8 (0.5-0.9) mg/dL GFR Calculation 73.9 L (90-130) mL/min Glucose 88 (65-115) mg/dL Calculated Osmolal ity 289 (285-295) mOsm/k g Lactic Acid (0.5-2.2) mmol/L Calcium 8.9 (8.5-10.5) mg/dL Total Bilirubin 0.2 (0.15-1.2) mg/dL AST 15 (0-32) U/L ALT 13 (0-33) U/L Alkaline Phosphata se 76 (35-105) IU/L Troponin T Baselin e 17 H (0-10) ng/L Troponin T 120 Min [place] (0-10) ng/L Delta Troponin T (0-10) ABS# NT-Pro-B Natriuret Pep 158 H (0-125) pg/mL Total Protein 6.0 L (6.6-8.7) g/dL Albumin 3.0 L (3.5-5.2) g/dL Globulin 3.0 (1.3-4.6) g/dL Urine Color (Yellow) Urine Appearance (CLEAR) Urine pH (5-7) Ur Specific Gravit y (1.005-1.030) Urine Protein (Negative) Urine Glucose (UA) (Normal) Urine Ketones (Negative) Urine Blood (Negative) Urine Nitrate (Negative) Urine Bilirubin (Negative) Urine Urobilinogen (Negative) mg/dL Ur Leukocyte Maira ase (Negative) Urine RBC (0-2) /hpf Urine WBC (0-5) /hpf Ur Squamous Epith Cells (0-5) /hpf Amorphous Sediment Urine Bacteria (NONE) /hpf Urine Mucus /hpf SARS-CoV-2 Ag (Rap id) (Negative) 02/29/20 02/29/20 02/29/20 Range/Units 16:30 16:30 16:57 WBC (4.0-10.0) 10^3/ uL RBC (4.1-5.3) 10^6/u L Hgb (11.5-15.3) g/dL Hct (37.0-47.0) % MCV (81-99) fL MCH (28.0-34.0) pg MCHC (30.0-36.0) g/dL RDW (12.1-15.1) % Plt Count (130-400) 10^3/c mm MPV (7.4-10.4) fL Neut % (Auto) % Lymph % (Auto) % Josephine % (Auto) % Eos % (Auto) % Baso % (Auto) % Neut # (Auto) (1.8-7.7) 10^3/u L Lymph # (Auto) (0.8-4.8) 10^3/u L Josephine # (Auto) (0.2-0.9) 10^3/u L Eos # (Auto) (0.0-0.8) 10^3/u L Baso # (Auto) (0.0-0.1) 10^3/u L Nucleated RBC % (a uto) % Nucleated RBCs # /100WBC D-Dimer 0.80 H (0-0.59) ug/mIFE U Sodium (136-145) mmol/L Potassium (3.5-5.1) mmol/L Chloride (98-107) mmol/L Carbon Dioxide (22-29) mmol/L Anion Gap (5-19) BUN (6-20) mg/dL Creatinine (0.5-0.9) mg/dL GFR Calculation (90-130) mL/min Glucose (65-115) mg/dL Calculated Osmolal ity (285-295) mOsm/k g Lactic Acid 1.6 (0.5-2.2) mmol/L Calcium (8.5-10.5) mg/dL Total Bilirubin (0.15-1.2) mg/dL AST (0-32) U/L ALT (0-33) U/L Alkaline Phosphata se (35-105) IU/L Troponin T Baselin e (0-10) ng/L Troponin T 120 Min [place] (0-10) ng/L Delta Troponin T (0-10) ABS# NT-Pro-B Natriuret Pep (0-125) pg/mL Total Protein (6.6-8.7) g/dL Albumin (3.5-5.2) g/dL Globulin (1.3-4.6) g/dL Urine Color Yellow (Yellow) Urine Appearance Clear (CLEAR) Urine pH 5 (5-7) Ur Specific Gravit y 1.020 (1.005-1.030) Urine Protein Neg (Negative) Urine Glucose (UA) Norm (Normal) Urine Ketones Negative (Negative) Urine Blood Neg (Negative) Urine Nitrate Negative (Negative) Urine Bilirubin Neg (Negative) Urine Urobilinogen Norm (Negative) mg/dL Ur Leukocyte Maira ase 1+ H (Negative) Urine RBC None (0-2) /hpf Urine WBC 15-25 H (0-5) /hpf Ur Squamous Epith Cells 5-10 H (0-5) /hpf Amorphous Sediment Not Reportable Urine Bacteria 1+ H (NONE) /hpf Urine Mucus Trace /hpf SARS-CoV-2 Ag (Rap id) (Negative) 02/29/20 02/29/20 Range/Units 18:35 20:45 WBC (4.0-10.0) 10^3/ uL RBC (4.1-5.3) 10^6/u L Hgb (11.5-15.3) g/dL Hct (37.0-47.0) % MCV (81-99) fL MCH (28.0-34.0) pg MCHC (30.0-36.0) g/dL RDW (12.1-15.1) % Plt Count (130-400) 10^3/c mm MPV (7.4-10.4) fL Neut % (Auto) % Lymph % (Auto) % Josephine % (Auto) % Eos % (Auto) % Baso % (Auto) % Neut # (Auto) (1.8-7.7) 10^3/u L Lymph # (Auto) (0.8-4.8) 10^3/u L Josephine # (Auto) (0.2-0.9) 10^3/u L Eos # (Auto) (0.0-0.8) 10^3/u L Baso # (Auto) (0.0-0.1) 10^3/u L Nucleated RBC % (a uto) % Nucleated RBCs # /100WBC D-Dimer (0-0.59) ug/mIFE U Sodium (136-145) mmol/L Potassium (3.5-5.1) mmol/L Chloride (98-107) mmol/L Carbon Dioxide (22-29) mmol/L Anion Gap (5-19) BUN (6-20) mg/dL Creatinine (0.5-0.9) mg/dL GFR Calculation (90-130) mL/min Glucose (65-115) mg/dL Calculated Osmolal ity (285-295) mOsm/k g Lactic Acid (0.5-2.2) mmol/L Calcium (8.5-10.5) mg/dL Total Bilirubin (0.15-1.2) mg/dL AST (0-32) U/L ALT (0-33) U/L Alkaline Phosphata se (35-105) IU/L Troponin T Baselin e (0-10) ng/L Troponin T 120 Min [place] 14.44 H (0-10) ng/L Delta Troponin T -2.56 L (0-10) ABS# NT-Pro-B Natriuret Pep (0-125) pg/mL Total Protein (6.6-8.7) g/dL Albumin (3.5-5.2) g/dL Globulin (1.3-4.6) g/dL Urine Color (Yellow) Urine Appearance (CLEAR) Urine pH (5-7) Ur Specific Gravit y (1.005-1.030) Urine Protein (Negative) Urine Glucose (UA) (Normal) Urine Ketones (Negative) Urine Blood (Negative) Urine Nitrate (Negative) Urine Bilirubin (Negative) Urine Urobilinogen (Negative) mg/dL Ur Leukocyte Maira ase (Negative) Urine RBC (0-2) /hpf Urine WBC (0-5) /hpf Ur Squamous Epith Cells (0-5) /hpf Amorphous Sediment Urine Bacteria (NONE) /hpf Urine Mucus /hpf SARS-CoV-2 Ag (Rap id) Negative (Negative) Discharge Plan Discharge Patient Disposition: Home Clinical Impression: Syncope Qualifiers: Syncope type: unspecified Qualified Code(s): R55 - Syncope and collapse Pneumonia Qualifiers: Pneumonia type: due to unspecified organism Laterality: bilateral Lung location: lower lobe of lung Qualified Code(s): J18.9 - Pneumonia, unspecified organism Condition: Stable Prescriptions: No Action Spiriva with HandiHaler 18 mcg capsule, w/inhalation device 1 ea INHALATION DAILY RF: 0 Trelegy Ellipta 100-62.5-25 mcg blister with device 1 inh INHALATION Q24H 30 Days Qty: 60 RF: 3 levofloxacin 750 mg tablet 750 mg PO DAILY 7 Days Qty: 7 RF: 0 dextromethorphan-guaifenesin [Mucinex DM] 60-1,200 mg tablet extended release 12 hr 1 tab PO Q12H 14 Days Qty: 28 RF: 0 budesonide [Pulmicort] 0.5 mg/2 mL suspension for nebulization 0.5 mg INHALATION BID Qty: 120 RF: 0 albuterol sulfate 2.5 mg /3 mL (0.083 %) solution for nebulization 2.5 mg inhalation Q4H Qty: 300 RF: 0 gabapentin 300 mg capsule 300 mg PO BID Qty: 60 RF: 2 Advair Diskus 500-50 mcg/dose blister with device 1 inh INHALATION BID RF: 0 EC-Naprosyn 500 mg tablet,delayed release (DR/EC) 500 mg PO BID PRN (Reason: pain) Qty: 20 RF: 0 Wellton 5-325 mg tablet 1 tab PO Q6H PRN (Reason: pain) Qty: 14 RF: 0 Discharge Orders: Discharge Order (Routine); Ordered 02/29/20 Ordered By: Dewayne Lawton Referrals: Irina Caruso FNP-C [Primary Care Provider] - 1-3 days Discharge Diet: Advance as tolerated Discharge Activity: Increase activity as tolerated Patient Instructions: Syncope (ED), Pneumonia (ED) Activity Restrictions/Additional Instructions: Drink plenty of fluid for the next 24 to 48 hours. Stay on your antibiotics. Return for fever greater than 100 despite antibiotics, continued episodes of syncope or passing out, mental status changes, weakness, other concerning symptoms Discharge Date/Time: 02/29/20 22:18 Coding Level of Care Code ED [employer] for Chg Fwd Exam Comprehensive Documented by User: Dewayne Lawton, 02/29/20 21:54 HPI - Nausea/Vomiting/Diarrhea General: Chief complaint: Nausea/Vomiting/Diarrhea Stated complaint: N/V; SYNCOPE Time Seen by Provider: 02/29/20 15:27 PFSH ED PFSH: Medical History Alveolar emphysema of lung COPD (chronic obstructive pulmonary disease) Neuralgia, post-herpetic Surgical History History of cholecystectomy History of hysterectomy Family History Other CAD (coronary artery disease) COPD (chronic obstructive pulmonary disease) Cancer Denies family history of Bleeding disorder Social History Smoking and tobacco status: current every day smoker cigarettes Packs smoked per day: 0.5 Years cigarettes smoked: 25 [ Other cigarette details: Hx of 1PPD x 23 Years ] Second hand smoke exposure: Yes Smoking risk assessment/counseling performed?: Yes Alcohol intake: never Desire information about alcohol rehabilitation?: No Counseling given: No Desire information about substance/drug rehabilitation?: No Counseling given: No Adopted: No Caregiver/support person: No Lives independently: Yes Household members: spouse Marital status: Number of children: 3 service: No Current occupational status: employed Current occupation: [employer] History of recent travel: No Current gender identity: Female Course Vital Signs: Vital signs: Vital Signs Temperature 98.0 F 02/29/20 15:21 Pulse Rate 69 02/29/20 22:17 Respiratory Rate 20 H 02/29/20 20:01 Blood Pressure 106/65 02/29/20 22:17 Pulse Oximetry 95 02/29/20 22:17 MDM - Nausea/Vomiting/Diarrhea MDM Narrative: Medical decision making narrative: 59-year-old lady checked out to me by Dr. Patrick. She experienced an episode of syncope today at [facility], followed by some vomiting. She had initial low blood pressure. She has had low blood pressures at times here, although she technically is not orthostatic. Blood pressure currently is 110/64. Heart rate is 82. Saturations are 93 to 95% on room air. She had been treated recently for pneumonia. She has a white blood cell count of 22, but has been on steroids. Chest x-ray was equivocal compared to prior. CTA of the chest abdomen pelvis was ordered. It shows groundglass type infiltrates in the lower lobes consistent with pneumonitis. She has been on Levaquin. She has a mildly contaminated urine may show a mild UTI, which Levaquin should cover. CT of the belly was negative. She feels much improved after IV fluid here. She was given the option of observation, but wishes to go home. Lab Data: Labs: Lab Results 02/29/20 02/29/20 02/29/20 Range/Units 16:30 16:30 16:30 WBC 22.4 H (4.0-10.0) 10^3/ uL RBC 3.94 L (4.1-5.3) 10^6/u L Hgb 11.9 (11.5-15.3) g/dL Hct 37.1 (37.0-47.0) % MCV 94.2 (81-99) fL MCH 30.2 (28.0-34.0) pg MCHC 32.1 (30.0-36.0) g/dL RDW 17.0 H (12.1-15.1) % Plt Count 395 (130-400) 10^3/c mm MPV 8.9 (7.4-10.4) fL Neut % (Auto) 87.7 % Lymph % (Auto) 6.2 % Josephine % (Auto) 5.0 % Eos % (Auto) 0.0 % Baso % (Auto) 0.2 % Neut # (Auto) 19.62 H (1.8-7.7) 10^3/u L Lymph # (Auto) 1.4 (0.8-4.8) 10^3/u L Josephine # (Auto) 1.1 H (0.2-0.9) 10^3/u L Eos # (Auto) 0.0 (0.0-0.8) 10^3/u L Baso # (Auto) 0.0 (0.0-0.1) 10^3/u L Nucleated RBC % (a uto) 0 % Nucleated RBCs # 0.0 /100WBC D-Dimer (0-0.59) ug/mIFE U Sodium 138 (136-145) mmol/L Potassium 3.7 (3.5-5.1) mmol/L Chloride 104 (98-107) mmol/L Carbon Dioxide 22 (22-29) mmol/L Anion Gap 15.7 (5-19) BUN 23 H (6-20) mg/dL Creatinine 0.8 (0.5-0.9) mg/dL GFR Calculation 73.9 L (90-130) mL/min Glucose 88 (65-115) mg/dL Calculated Osmolal ity 289 (285-295) mOsm/k g Lactic Acid (0.5-2.2) mmol/L Calcium 8.9 (8.5-10.5) mg/dL Total Bilirubin 0.2 (0.15-1.2) mg/dL AST 15 (0-32) U/L ALT 13 (0-33) U/L Alkaline Phosphata se 76 (35-105) IU/L Troponin T Baselin e 17 H (0-10) ng/L Troponin T 120 Min [place] (0-10) ng/L Delta Troponin T (0-10) ABS# NT-Pro-B Natriuret Pep 158 H (0-125) pg/mL Total Protein 6.0 L (6.6-8.7) g/dL Albumin 3.0 L (3.5-5.2) g/dL Globulin 3.0 (1.3-4.6) g/dL Urine Color (Yellow) Urine Appearance (CLEAR) Urine pH (5-7) Ur Specific Gravit y (1.005-1.030) Urine Protein (Negative) Urine Glucose (UA) (Normal) Urine Ketones (Negative) Urine Blood (Negative) Urine Nitrate (Negative) Urine Bilirubin (Negative) Urine Urobilinogen (Negative) mg/dL Ur Leukocyte Maira ase (Negative) Urine RBC (0-2) /hpf Urine WBC (0-5) /hpf Ur Squamous Epith Cells (0-5) /hpf Amorphous Sediment Urine Bacteria (NONE) /hpf Urine Mucus /hpf SARS-CoV-2 Ag (Rap id) (Negative) 02/29/20 02/29/20 02/29/20 Range/Units 16:30 16:30 16:57 WBC (4.0-10.0) 10^3/ uL RBC (4.1-5.3) 10^6/u L Hgb (11.5-15.3) g/dL Hct (37.0-47.0) % MCV (81-99) fL MCH (28.0-34.0) pg MCHC (30.0-36.0) g/dL RDW (12.1-15.1) % Plt Count (130-400) 10^3/c mm MPV (7.4-10.4) fL Neut % (Auto) % Lymph % (Auto) % Josephine % (Auto) % Eos % (Auto) % Baso % (Auto) % Neut # (Auto) (1.8-7.7) 10^3/u L Lymph # (Auto) (0.8-4.8) 10^3/u L Josephine # (Auto) (0.2-0.9) 10^3/u L Eos # (Auto) (0.0-0.8) 10^3/u L Baso # (Auto) (0.0-0.1) 10^3/u L Nucleated RBC % (a uto) % Nucleated RBCs # /100WBC D-Dimer 0.80 H (0-0.59) ug/mIFE U Sodium (136-145) mmol/L Potassium (3.5-5.1) mmol/L Chloride (98-107) mmol/L Carbon Dioxide (22-29) mmol/L Anion Gap (5-19) BUN (6-20) mg/dL Creatinine (0.5-0.9) mg/dL GFR Calculation (90-130) mL/min Glucose (65-115) mg/dL Calculated Osmolal ity (285-295) mOsm/k g Lactic Acid 1.6 (0.5-2.2) mmol/L Calcium (8.5-10.5) mg/dL Total Bilirubin (0.15-1.2) mg/dL AST (0-32) U/L ALT (0-33) U/L Alkaline Phosphata se (35-105) IU/L Troponin T Baselin e (0-10) ng/L Troponin T 120 Min [place] (0-10) ng/L Delta Troponin T (0-10) ABS# NT-Pro-B Natriuret Pep (0-125) pg/mL Total Protein (6.6-8.7) g/dL Albumin (3.5-5.2) g/dL Globulin (1.3-4.6) g/dL Urine Color Yellow (Yellow) Urine Appearance Clear (CLEAR) Urine pH 5 (5-7) Ur Specific Gravit y 1.020 (1.005-1.030) Urine Protein Neg (Negative) Urine Glucose (UA) Norm (Normal) Urine Ketones Negative (Negative) Urine Blood Neg (Negative) Urine Nitrate Negative (Negative) Urine Bilirubin Neg (Negative) Urine Urobilinogen Norm (Negative) mg/dL Ur Leukocyte Maira ase 1+ H (Negative) Urine RBC None (0-2) /hpf Urine WBC 15-25 H (0-5) /hpf Ur Squamous Epith Cells 5-10 H (0-5) /hpf Amorphous Sediment Not Reportable Urine Bacteria 1+ H (NONE) /hpf Urine Mucus Trace /hpf SARS-CoV-2 Ag (Rap id) (Negative) 02/29/20 02/29/20 Range/Units 18:35 20:45 WBC (4.0-10.0) 10^3/ uL RBC (4.1-5.3) 10^6/u L Hgb (11.5-15.3) g/dL Hct (37.0-47.0) % MCV (81-99) fL MCH (28.0-34.0) pg MCHC (30.0-36.0) g/dL RDW (12.1-15.1) % Plt Count (130-400) 10^3/c mm MPV (7.4-10.4) fL Neut % (Auto) % Lymph % (Auto) % Josephine % (Auto) % Eos % (Auto) % Baso % (Auto) % Neut # (Auto) (1.8-7.7) 10^3/u L Lymph # (Auto) (0.8-4.8) 10^3/u L Josephine # (Auto) (0.2-0.9) 10^3/u L Eos # (Auto) (0.0-0.8) 10^3/u L Baso # (Auto) (0.0-0.1) 10^3/u L Nucleated RBC % (a uto) % Nucleated RBCs # /100WBC D-Dimer (0-0.59) ug/mIFE U Sodium (136-145) mmol/L Potassium (3.5-5.1) mmol/L Chloride (98-107) mmol/L Carbon Dioxide (22-29) mmol/L Anion Gap (5-19) BUN (6-20) mg/dL Creatinine (0.5-0.9) mg/dL GFR Calculation (90-130) mL/min Glucose (65-115) mg/dL Calculated Osmolal ity (285-295) mOsm/k g Lactic Acid (0.5-2.2) mmol/L Calcium (8.5-10.5) mg/dL Total Bilirubin (0.15-1.2) mg/dL AST (0-32) U/L ALT (0-33) U/L Alkaline Phosphata se (35-105) IU/L Troponin T Baselin e (0-10) ng/L Troponin T 120 Min [place] 14.44 H (0-10) ng/L Delta Troponin T -2.56 L (0-10) ABS# NT-Pro-B Natriuret Pep (0-125) pg/mL Total Protein (6.6-8.7) g/dL Albumin (3.5-5.2) g/dL Globulin (1.3-4.6) g/dL Urine Color (Yellow) Urine Appearance (CLEAR) Urine pH (5-7) Ur Specific Gravit y (1.005-1.030) Urine Protein (Negative) Urine Glucose (UA) (Normal) Urine Ketones (Negative) Urine Blood (Negative) Urine Nitrate (Negative) Urine Bilirubin (Negative) Urine Urobilinogen (Negative) mg/dL Ur Leukocyte Maira ase (Negative) Urine RBC (0-2) /hpf Urine WBC (0-5) /hpf Ur Squamous Epith Cells (0-5) /hpf Amorphous Sediment Urine Bacteria (NONE) /hpf Urine Mucus /hpf SARS-CoV-2 Ag (Rap id) Negative (Negative) Discharge Plan Discharge Patient Disposition: Home Clinical Impression: Syncope Qualifiers: Syncope type: unspecified Qualified Code(s): R55 - Syncope and collapse Pneumonia Qualifiers: Pneumonia type: due to unspecified organism Laterality: bilateral Lung location: lower lobe of lung Qualified Code(s): J18.9 - Pneumonia, unspecified organism Condition: Stable Prescriptions: No Action Spiriva with HandiHaler 18 mcg capsule, w/inhalation device 1 ea INHALATION DAILY RF: 0 Trelegy Ellipta 100-62.5-25 mcg blister with device 1 inh INHALATION Q24H 30 Days Qty: 60 RF: 3 levofloxacin 750 mg tablet 750 mg PO DAILY 7 Days Qty: 7 RF: 0 dextromethorphan-guaifenesin [Mucinex DM] 60-1,200 mg tablet extended release 12 hr 1 tab PO Q12H 14 Days Qty: 28 RF: 0 budesonide [Pulmicort] 0.5 mg/2 mL suspension for nebulization 0.5 mg INHALATION BID Qty: 120 RF: 0 albuterol sulfate 2.5 mg /3 mL (0.083 %) solution for nebulization 2.5 mg inhalation Q4H Qty: 300 RF: 0 gabapentin 300 mg capsule 300 mg PO BID Qty: 60 RF: 2 Advair Diskus 500-50 mcg/dose blister with device 1 inh INHALATION BID RF: 0 EC-Naprosyn 500 mg tablet,delayed release (DR/EC) 500 mg PO BID PRN (Reason: pain) Qty: 20 RF: 0 [place] 5-325 mg tablet 1 tab PO Q6H PRN (Reason: pain) Qty: 14 RF: 0 Discharge Orders: Discharge Order (Routine); Ordered 02/29/20 Ordered By: Dewayne Lawton Referrals: Irina Caruso, MICHELLE-C [Primary Care Provider] - 1-3 days Discharge Diet: Advance as tolerated Discharge Activity: Increase activity as tolerated Patient Instructions: Syncope (ED), Pneumonia (ED) Activity Restrictions/Additional Instructions: Drink plenty of fluid for the next 24 to 48 hours. Stay on your antibiotics. Return for fever greater than 100 despite antibiotics, continued episodes of syncope or passing out, mental status changes, weakness, other concerning symptoms Discharge Date/Time: 02/29/20 22:18 Coding Level of Care Code ED [employer] for Efrain Fwd Exam Comprehensive
[2020-02-29 16:37] LABS: Basophils % 0.2 %; Hematocrit 37.1 % (37.0-47.0); Hemoglobin 11.9 g/dL (11.5-15.3); Lymphocytes # 1.4 10^3/uL (0.8-4.8); Lymphocytes % 6.2 %; Mean Corpuscular HGB Conc 32.1 g/dL (30.0-36.0); Mean Corpuscular Hemoglobin 30.2 pg (28.0-34.0); Mean Corpuscular Volume 94.2 fL (81-99); Mean Platelet Volume 8.9 fL (7.4-10.4); Monocytes # 1.1 10^3/uL (0.2-0.9); Neutrophils # 19.62 10^3/uL (1.8-7.7); Neutrophils % 87.7 %; Nucleated Red Blood Cells % 0 %; Platelet Count 395 10^3/cmm (130-400); Red Blood Count 3.94 10^6/uL (4.1-5.3); White Blood Count 22.4 10^3/uL (4.0-10.0)
[2020-02-29] MEDS: sodium chloride 0.9% 1,000 ML 999 ML IV (16:43)
[2020-02-29 16:55] LABS: Lactic Sepsis W/Reflex 1.6 mmol/L (0.5-2.2)
[2020-02-29 16:57] LABS: Troponin(5th) Baseline 17 ng/L (0-10)
[2020-02-29 17:04] LABS: Alanine Aminotransferase 13 U/L (0-33); Alkaline Phosphatase 76 IU/L (35-105); Anion Gap 15.7 (5-19); Aspartate Amino Transferase 15 U/L (0-32); Blood Urea Nitrogen 23 mg/dL (6-20); Calcium 8.9 mg/dL (8.5-10.5); Carbon Dioxide 22 mmol/L (22-29); Chloride 104 mmol/L (98-107); Glomerular Filtration Rate 73.9 mL/min (90-130); Glucose 88 mg/dL (65-115); NT Pro B Type Natriuretic Pept 158 pg/mL (0-125); Osmolality Calculated 289 mOsm/kg (285-295); Potassium 3.7 mmol/L (3.5-5.1); Sodium 138 mmol/L (136-145); Total Bilirubin 0.2 mg/dL (0.15-1.2)
--- NOTE | 2020-02-29 17:32 | ECG_ITS ---
[facility] Test Date: 2020-02-29 Pat Name: Allison Peoples Department: Room: Gender: Female Statistical Developer: : 1960 Requested By: Cony Abdalla Order Number: [id number] Peg MD: Ben Vora M.D. Measurements Intervals [place] Rate: 80 P: 79 CO: 107 QRS: 86 QRSD: 89 T: 73 QT: 331 QTc: 384 Interpretive Statements SINUS RHYTHM WITH SHORT CO INTERVAL WITH OCCASIONAL SUPRAVENTRICULAR PREMATURE COMPLEXES Compared to ECG 02/29/2020 16:36:27 No significant changes Electronically Signed On 03-01-2020 21:45:19 CDT by Ben Vora M.D. [email or web address]
[2020-02-29 17:42] LABS: Add Urine Microscopic? YES; Bacteria Urine 1+ /hpf; Bilirubin Urine Neg (Negative); Blood Urine Neg (Negative); Glucose Urine UA Norm (Normal); Ketones Urine Negative (Negative); Leukocyte Esterase Urine 1+ (Negative); Mucus Urine TRACE /hpf; Nitrate Urine Negative (Negative); Protein Urine Neg (Negative); Urine Appearance Clear (CLEAR); Urine Color Yellow (Yellow); Urobilinogen Urine Norm (Negative); WBC Urine 15-25 /hpf (0-5); pH Urine 5 (5-7)
[2020-02-29 17:43] LABS: Add Urine Culture? Yes
--- NOTE | 2020-02-29 18:29 | CTR_ITS ---
PROCEDURE INFORMATION: Exam: CT Abdomen And Pelvis With Contrast Exam date and time: 02/29/2020 6:54 PM Age: 59 years old Clinical indication: Nausea and vomiting; Shortness of breath; Prior surgery; Surgery date: 6+ months; Surgery type: Gb, hyst; Patient HX: C/O syncope, cp, weakness, SOB, n/v; Additional info: Syncope, weakness, SOB, vomiting TECHNIQUE: Imaging protocol: Computed tomography of the abdomen and pelvis with intravenous contrast. 3D rendering (Not supervised by radiologist): MIP and/or 3D reconstructed images were created by the technologist. Radiation optimization: All CT scans at this facility use at least one of these dose optimization techniques: automated exposure control; mA and/or kV adjustment per patient size (includes targeted exams where dose is matched to clinical indication); or iterative reconstruction. COMPARISON: No relevant prior studies available. FINDINGS: Liver: Unremarkable. No mass. Gallbladder and bile ducts: Status post cholecystectomy. Pancreas: Normal. No ductal dilation. Spleen: Normal. No splenomegaly. Adrenals: Normal. No mass. Kidneys and ureters: Normal. No hydronephrosis. Stomach and bowel: Constipation. Nonobstructive bowel pattern. No visible adynamic or reactive ileus. Appendix: The appendix is visualized and appears noninflamed. Intraperitoneal space: No visible evidence of mesenteric lymphadenitis or active mesenteritis/panniculitis. Vasculature: The abdominal aorta is nonaneurysmal. Advanced arterial sclerotic disease. Lymph nodes: No current visible evidence of active mesenteric or retroperitoneal lymphadenopathy. Urinary bladder: Unremarkable as visualized. Reproductive: Status post hysterectomy. Bones/joints: No visible active or acute osseous abnormality. Soft tissues: Cachexia. CT/CT angio chest w abd pel w con IMPRESSION: 1. Currently no visible evidence of acute abdominal or pelvic pathologic process. 2. Constipation.
[2020-02-29 19:02] LABS: Troponin 5 2HR 14.44 ng/L (0-10)
[2020-02-29 19:04] LABS: Troponin 5 2HR Delta -2.56 ABS# (0-10)
[2020-02-29] MEDS: iohexol 350 mg/mL 100 mL Btl IV (19:43)
[2020-02-29 20:01] VITALS: BP 117/73; PULSE 81; RESP 20; O2SAT 96
[2020-02-29 21:14] LABS: SARS Covid-2 Antigen Negative (Negative)
[2020-02-29 22:17] VITALS: BP 106/65; PULSE 69; O2SAT 95
== END 2020-02-29 22:18 | disposition home or self-care (01) ==
PROVIDERS: Emergency Medicine; Emergency Provider Emergency Medicine; PCP Nurse Practitioner
DX: R55 Syncope and collapse (principal); J18.9 Pneumonia, unspecified organism; J44.9 Chronic obstructive pulmonary disease, unspecified; F17.210 Nicotine dependence, cigarettes, uncomplicated
CPT/HCPCS: 12345; 70450; 71045; 71275; 74174; 74177; 80053; 81001; 83605; 83880; 84484; 85025; 85378; 87086; 87426; 93005; 96360; 99283; 99284; J7030; Q9967

== ENCOUNTER 2020-03-02 15:44 | Outpatient (CLI) | payer BC, SELFPAY | END 2020-03-02 15:45 | disposition home or self-care (01) | LOC: LAB 15:47 | PROVIDERS: PCP Nurse Practitioner; Visit Provider Internal Medicine Critical Care Medicine | DX: J47.9 Bronchiectasis, uncomplicated (principal) | CPT/HCPCS: 87015; 87070; 87077; 87116; 87186; 87205; 87206; 87801 ==

== ENCOUNTER → 2020-03-19 15:56 | Outpatient (BNVA) | payer BC, SELFPAY | PROVIDERS: PCP Nurse Practitioner; Visit Provider Internal Medicine Critical Care Medicine | DX: Z11.59 Encounter for screening for other viral diseases (principal); J18.9 Pneumonia, unspecified organism | CPT/HCPCS: 87635 ==

== ENCOUNTER 2020-03-24 11:00 | Outpatient (CLI) | payer BC, SELFPAY | END 2020-03-24 11:01 | disposition home or self-care (01) | LOC: SLEEP 03-26 09:24 | PROVIDERS: PCP Nurse Practitioner; Visit Provider Internal Medicine Critical Care Medicine | DX: J44.9 Chronic obstructive pulmonary disease, unspecified (principal) | CPT/HCPCS: 94762 ==

== ENCOUNTER 2020-03-24 12:53 | Outpatient (CLI) | payer BC, SELFPAY ==
--- NOTE | 2020-03-24 14:27 | PFTS_ITS ---
Date of Study:03/24/20 Date of Dictation: MECHANICS: Forced vital capacity (FVC) is reduced. Forced expiratory volume in one second (FEV1) is reduced. FEV1/FVC is reduced. FLOW VOLUME LOOP: Reduced flow at all lung volumes with significant scooping. LUNG VOLUMES: Total lung capacity (TLC) is normal. Residual volume (RV) is increased. DIFFUSING CAPACITY FOR CARBON MONOXIDE: Severely reduced. INTERPRETATION: The pulmonary function tests are consistent with severe airflow obstruction. There is no significant postbronchodilator response Lung volumes are consistent with air trapping. Gas exchange (DLCO) is severely reduced. MTDD
== END 2020-03-24 12:54 | disposition home or self-care (01) ==
PROVIDERS: PCP Nurse Practitioner; Visit Provider Internal Medicine Critical Care Medicine
DX: J44.9 Chronic obstructive pulmonary disease, unspecified (principal)
CPT/HCPCS: 94060; 94618; 94726; 94729; J7611

== ENCOUNTER 2020-07-13 07:49 | Outpatient (CLI) | payer BC, SELFPAY ==
--- NOTE | 2020-07-13 08:00 | CT_ITS ---
WS: [id number] CT CHEST TECHNIQUE: Contrast enhanced CT of the chest with coronal and sagittal reformatted images. CLINICAL INFORMATION: lymph node COMPARISON: CTA chest March 01, 2020 ,CT chest January 2020, October 16, 2019, March 2018 DLP: 558.[address] scans at [facility] use at least one of these dose optimization techniques: automat ed exposure control; mA and/or kV adjustment per patient size (includes targeted exams where dose is matched to clinical indication); or iterative reconstruction. FINDINGS: Advanced chronic emphysematous changes. Fibrosis in the lung apices. Subsegmental atelectasis and bro nchiectasis in right middle lobe is similar to the prior examination. Stable 9 mm right suprahilar ly mph node. Stable 5 mm calcified nodule left lower lobe. Micronodular inflammatory appearing opacities are unchanged prominent in the right upper lobe, right middle lobe, and lingula. Additional tiny sub centimeter subpleural nodules are unchanged. Tiny left thyroid nodule. No mediastinal or hilar lymphadenopathy. No axillary lymphadenopathy. Izabel l caliber thoracic aorta. Diffuse fatty infiltration liver. Cholecystectomy clips. CT/CT chest w con* [id number] IMPRESSION: 1. No changes compared to January 20, 2020. 2. Stable noncalcified pulmonary nodule left lower lobe measuring 5 mm. Recomm end 12 month follow-up. 3. Advanced chronic emphysematous changes. 4. Stable bronchiectasis with atelectasis in right middle lobe. 5. Stable micronodular inflammatory appearing opacities more prominent in the right upper lobe, right middle lobe, and lingula.
[2020-07-13] MEDS: iohexol 300 mg/mL 100 mL Btl IV (08:19)
== END 2020-07-13 07:50 | disposition home or self-care (01) ==
LOC: RADWPI 07:51
PROVIDERS: PCP Nurse Practitioner; Visit Provider Nurse Practitioner
DX: R59.9 Enlarged lymph nodes, unspecified (principal); J47.9 Bronchiectasis, uncomplicated; J98.11 Atelectasis; R91.1 Solitary pulmonary nodule
CPT/HCPCS: 71260; Q9967

== ENCOUNTER → 2020-08-20 16:18 | Outpatient (BNVA) | payer BC, SELFPAY | PROVIDERS: PCP Nurse Practitioner; Visit Provider Nurse Practitioner | DX: R05 Cough (principal) | CPT/HCPCS: 71046 ==

== ENCOUNTER 2020-08-26 10:18 | Emergency (ER) | payer BC, SELFPAY ==
[2020-08-26] VITALS (7 sets, daily range): BP systolic 95–113; BP diastolic 50–74; PULSE 70–89; RESP 16–18; TEMP 36.5–37.2; O2SAT 95–98; BMI 14.8
--- NOTE | 2020-08-26 12:02 | XR_ITS ---
WS: [id number] PORTABLE CHEST HISTORY: chest pain COMPARISON: 08/20/2020 Marked pulmonary hyperinflation from emphysema. Improved aeration bilaterally since the prior study. Interstitial thickening noted centrally has improved. No pneumonia. Mild biapical pleural thickening. Cardiac size: Normal. Mediastinum/Aorta: Mild atherosclerosis aorta. No osseous abnormality seen. XR/XR chest 1V portable [id number] IMPRESSION: 1. Chronic emphysema. 2. Improved aeration since the prior study. No pneumonia.
--- NOTE | 2020-08-26 12:02 | ECG_ITS ---
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1960 Requested By: Hossein Abdalla Order Number: [id number] Reading MD: MARY KATE ORTEGA Measurements Intervals [place] Rate: 89 P: 88 SC: 149 QRS: 94 QRSD: 94 T: 79 QT: 341 QTc: 416 Interpretive Statements SINUS RHYTHM WITH OCCASIONAL VENTRICULAR PREMATURE COMPLEXES RIGHT ATRIAL ENLARGEMENT [0.3mV P WAVE] BORDERLINE RIGHT AXIS DEVIATION [QRS AXIS > 90] Compared to ECG 02/29/2020 19:57:25 Ventricular premature complex(es) now present Atrial abnormality now present Short SC interval no longer present Electronically Signed On 08-26-2020 20:42:15 CDT by MARY KATE ORTEGA [id number] f
--- NOTE | 2020-08-26 12:04 | W.ED.CHESTPA ---
HPI - Chest Pain General: Chief Complaint: Chest Pain Stated Complaint: CP, NAUSEA Time Seen by Provider: 08/26/20 12:01 History of Present Illness: HPI narrative: 60-year-old female presents emergency room complaining of chest pain. 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 Has no known history of coronary disease she previously had a stress test that was negative. She does smoke. No chest pain at this time no previous episodes chest pain MD complaint: chest pain Pertinent past history: other (COPD) Onset (ago): minute(s) Timing of current episode: episodic and now resolved Prior episodes: No Onset: during rest Pain location: left chest Pain radiation: none Severity: mild Quality: sharp Relieving factors: nothing Exacerbating factors: nothing Associated symptoms: Reports dyspnea; Deny abdominal pain, diaphoresis, fever(s), leg edema, nausea, palpitations, sense of impending doom, syncope or vomiting Treatment prior to arrival: none Review of Systems Const: Denies: fever(s) or diaphoresis ENMT: Denies: throat pain, ear or mastoid pain, nasal discharge or nasal congestion Card: Denies: palpitations or syncope Resp: Reports: dyspnea GI: Denies: abdominal pain, nausea or vomiting : Denies: flank pain, difficulty voiding, dysuria, urinary frequency or urinary urgency Skin/Breast: Denies: rash or pruritus PFSH ED PFSH: Medical History (Updated 08/26/20 @ 15:59 by Hossein Patterson DO) Alveolar emphysema of lung COPD (chronic obstructive pulmonary disease) Neuralgia, post-herpetic Surgical History History of cholecystectomy History of hysterectomy Family History Other CAD (coronary artery disease) COPD (chronic obstructive pulmonary disease) Cancer Denies family history of Bleeding disorder Social History Smoking and tobacco status: current every day smoker cigarettes Packs smoked per day: 0.5 Years cigarettes smoked: 25 [ Other cigarette details: Hx of 1PPD x 23 Years ] Second hand smoke exposure: Yes Smoking risk assessment/counseling performed?: Yes Alcohol intake: never Desire information about alcohol rehabilitation?: No Counseling given: No Desire information about substance/drug rehabilitation?: No Counseling given: No Adopted: No Caregiver/support person: No Lives independently: Yes Household members: spouse Marital status: Number of children: 3 service: No Current occupational status: employed 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 History of recent travel: No Current gender identity: Female Physical Exam Const: COMMON NORMALS: no acute distress GENERAL APPEARANCE: cooperative and comfortable ORIENTATION/CONSCIOUSNESS: Yes awake, Yes oriented to person, Yes oriented to place and Yes oriented to time HENMT: COMMON NORMALS: normocephalic, atraumatic and hearing grossly normal bilaterally HEAD & SCALP: normocephalic and atraumatic Eye: COMMON NORMALS: Equal, round and reactive pupils present, EOMs intact bilaterally, conjunctivae normal and no scleral icterus CONJUNCTIVA: Yes conjunctivae normal PUPIL: Yes Equal, round and reactive pupils present Neck/C-Spine: COMMON NORMALS: no JVD Resp: COMMON NORMALS: normal respiratory effort, No retractions, No use of accessory muscles and clear to auscultation bilaterally AUSCULTATION: clear to auscultation bilaterally Cardio: COMMON NORMALS: no JVD, regular rate, regular rhythm and No murmurs present (Cardio) RATE: regular rate RHYTHM: regular rhythm GI: COMMON NORMALS: Soft to palpation and No hepatosplenomegaly present AUSCULTATION: Yes normoactive bowel sounds PALPATION: Yes Soft to palpation, No Tenderness to palpation present (GI), No Guarding due to palpation present (GI) and Yes No hepatosplenomegaly present Extremity: COMMON NORMALS: normal to inspection, capillary refill normal, no clubbing, cyanosis or edema, no calf tenderness and no pedal edema Neuro: SENSORIUM/ORIENTATION: Yes oriented to person, Yes oriented to place and Yes oriented to time Skin: COMMON NORMALS: no rashes or lesions noted GENERAL SKIN EXAM: no rashes or lesions noted Course Vital Signs: Vital signs: Vital Signs Temperature 98.9 F 08/26/20 16:11 Pulse Rate 76 08/26/20 16:11 Respiratory Rate 18 08/26/20 16:11 Blood Pressure 100/69 08/26/20 16:11 Pulse Oximetry 96 08/26/20 16:11 MDM - Chest Pain MDM Narrative: Medical decision making narrative: Troponins negative we will go ahead and discharge patient home. Did not sound very cardiac in nature we will have her get a a patient sestamibi stress test also restarted on aspirin daily. Return if has any problems. Lab Data: Labs: Lab Results 08/26/20 08/26/20 08/26/20 Range/Units 12:02 12:02 12:02 WBC 14.3 H (4.0-10.0) 10^3/ uL RBC 4.52 (4.1-5.3) 10^6/u L Hgb 13.9 (11.5-15.3) g/dL Hct 41.7 (37.0-47.0) % MCV 92.3 (81-99) fL MCH 30.8 (28.0-34.0) pg MCHC 33.3 (30.0-36.0) g/dL RDW 13.7 (12.1-15.1) % Plt Count 398 (130-400) 10^3/c mm MPV 8.8 (7.4-10.4) fL Neut % (Auto) 75.7 % Lymph % (Auto) 16.9 % [place] % (Auto) 6.4 % Eos % (Auto) 0.0 % Baso % (Auto) 0.4 % Neut # (Auto) 10.85 H (1.8-7.7) 10^3/u L Lymph # (Auto) 2.4 (0.8-4.8) 10^3/u L [place] # (Auto) 0.9 (0.2-0.9) 10^3/u L Eos # (Auto) 0.0 (0.0-0.8) 10^3/u L Baso # (Auto) 0.1 (0.0-0.1) 10^3/u L Nucleated RBC % (a uto) 0 % Nucleated RBCs # 0.0 /100WBC Sodium 138 (136-145) mmol/L Potassium 4.0 (3.5-5.1) mmol/L Chloride 102 (98-107) mmol/L Carbon Dioxide 27 (22-29) mmol/L Anion Gap 13.0 (5-19) BUN 14 (6-20) mg/dL Creatinine 0.7 (0.5-0.9) mg/dL GFR Calculation 85.9 L (90-130) mL/min Glucose 86 (65-115) mg/dL Calculated Osmolal ity 286 (285-295) mOsm/k g Calcium 9.0 (8.5-10.5) mg/dL Total Bilirubin 0.3 (0.15-1.2) mg/dL AST 10 (0-32) U/L ALT 6 (0-33) U/L Alkaline Phosphata se 111 H (35-105) IU/L Troponin T Baselin e 22 H (0-10) ng/L Troponin T 120 Min taran Delta Troponin T Total Protein 6.9 (6.6-8.7) g/dL Albumin 4.1 (3.5-5.2) g/dL Globulin 2.8 (1.3-4.6) g/dL 08/26/20 08/26/20 Range/Units 14:00 15:00 WBC (4.0-10.0) 10^3/ uL RBC (4.1-5.3) 10^6/u L Hgb (11.5-15.3) g/dL Hct (37.0-47.0) % MCV (81-99) fL MCH (28.0-34.0) pg MCHC (30.0-36.0) g/dL RDW (12.1-15.1) % Plt Count (130-400) 10^3/c mm MPV (7.4-10.4) fL Neut % (Auto) % Lymph % (Auto) % [place] % (Auto) % Eos % (Auto) % Baso % (Auto) % Neut # (Auto) (1.8-7.7) 10^3/u L Lymph # (Auto) (0.8-4.8) 10^3/u L [place] # (Auto) (0.2-0.9) 10^3/u L Eos # (Auto) (0.0-0.8) 10^3/u L Baso # (Auto) (0.0-0.1) 10^3/u L Nucleated RBC % (a uto) % Nucleated RBCs # /100WBC Sodium (136-145) mmol/L Potassium (3.5-5.1) mmol/L Chloride (98-107) mmol/L Carbon Dioxide (22-29) mmol/L Anion Gap (5-19) BUN (6-20) mg/dL Creatinine (0.5-0.9) mg/dL GFR Calculation (90-130) mL/min Glucose (65-115) mg/dL Calculated Osmolal ity (285-295) mOsm/k g Calcium (8.5-10.5) mg/dL Total Bilirubin (0.15-1.2) mg/dL AST (0-32) U/L ALT (0-33) U/L Alkaline Phosphata se (35-105) IU/L Troponin T Baselin e (0-10) ng/L Troponin T 120 Min taran Cancelled 17.70 H Delta Troponin T Cancelled -4.30 L Total Protein (6.6-8.7) g/dL Albumin (3.5-5.2) g/dL Globulin (1.3-4.6) g/dL Discharge Plan Discharge Patient Disposition: Home Clinical Impression: Atypical chest pain Condition: Stable Prescriptions: New Adult Low Dose Aspirin 81 mg tablet,delayed release (DR/EC) 81 mg PO DAILY Qty: 90 RF: 0 No Action levofloxacin 750 mg tablet 750 mg PO DAILY 7 Days Qty: 7 RF: 0 albuterol sulfate [Ventolin HFA] 90 mcg/actuation HFA aerosol inhaler 2 puff INHALATION Q6H PRN (Reason: shortness of breath or wheezing) Qty: 18 RF: 2 vuuuzmemlip-rmhcfkvkm-ctpvpcly [Trelegy Ellipta] 100-62.5-25 mcg blister with device See Rx Instructions .ROUTE .COMPLEX Qty: 60 RF: 3 naproxen [EC-Naprosyn] 500 mg tablet,delayed release (DR/EC) 500 mg PO BID PRN (Reason: pain) Qty: 20 RF: 0 albuterol sulfate 2.5 mg /3 mL (0.083 %) solution for nebulization 2.5 mg inhalation Q4H PRN (Reason: Shortness Of Breath) RF: 0 azithromycin 250 mg tablet 250 mg PO EVERY OTHER DAY RF: 0 Discharge Orders: Discharge ED (Routine); Ordered 08/26/20 Ordered By: Hossein Patterson Referrals: Irina Caruso, SENIOR ORACLE DATABASE DEVELOPER-C [Primary Care Provider] - Patient Instructions: Opioid Safety Activity Restrictions/Additional Instructions: Management will call to set up a outpatient stress test Coding Level of Care Code ED Necktie Centralizing Machine Operator for Chg Fwd Exam Comprehensive
--- NOTE | 2020-08-26 12:13 | PC.NURSE ---
Pt is a smoker , has a smokers cough
[2020-08-26 12:15] LABS: Basophils # 0.1 10^3/uL (0.0-0.1); Basophils % 0.4 %; Hematocrit 41.7 % (37.0-47.0); Hemoglobin 13.9 g/dL (11.5-15.3); Lymphocytes # 2.4 10^3/uL (0.8-4.8); Lymphocytes % 16.9 %; Mean Corpuscular HGB Conc 33.3 g/dL (30.0-36.0); Mean Corpuscular Hemoglobin 30.8 pg (28.0-34.0); Mean Corpuscular Volume 92.3 fL (81-99); Mean Platelet Volume 8.8 fL (7.4-10.4); Monocytes # 0.9 10^3/uL (0.2-0.9); Monocytes % 6.4 %; Neutrophils # 10.85 10^3/uL (1.8-7.7); Neutrophils % 75.7 %; Nucleated Red Blood Cells % 0 %; Platelet Count 398 10^3/cmm (130-400); Red Blood Count 4.52 10^6/uL (4.1-5.3); Red Cell Distribution Width 13.7 % (12.1-15.1); White Blood Count 14.3 10^3/uL (4.0-10.0)
[2020-08-26 12:27] LABS: Troponin(5th) Baseline 22 ng/L (0-10)
[2020-08-26 12:32] LABS: Alanine Aminotransferase 6 U/L (0-33); Albumin Level 4.1 g/dL (3.5-5.2); Alkaline Phosphatase 111 IU/L (35-105); Aspartate Amino Transferase 10 U/L (0-32); Blood Urea Nitrogen 14 mg/dL (6-20); Carbon Dioxide 27 mmol/L (22-29); Chloride 102 mmol/L (98-107); Globulin 2.8 g/dL (1.3-4.6); Glomerular Filtration Rate 85.9 mL/min (90-130); Glucose 86 mg/dL (65-115); Osmolality Calculated 286 mOsm/kg (285-295); Sodium 138 mmol/L (136-145); Total Bilirubin 0.3 mg/dL (0.15-1.2); Total Protein 6.9 g/dL (6.6-8.7)
[2020-08-26] MEDS: aspirin 81 mg Chew Tablet 324 MG PO (13:14)
--- NOTE | 2020-08-26 14:02 | ECG_ITS ---
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1960 Requested By: Hossein Abdalla Order Number: [id number] Reading MD: MARY KATE ORTEGA Measurements Intervals [place] Rate: 72 P: 78 IN: 116 QRS: 88 QRSD: 85 T: 76 QT: 358 QTc: 392 Interpretive Statements SINUS RHYTHM WITH SHORT IN INTERVAL Compared to ECG 08/26/2020 10:45:31 Short IN interval now present Ventricular premature complex(es) no longer present Atrial abnormality no longer present Electronically Signed On 08-26-2020 20:43:46 CDT by MARY KATE ORTEGA [id number]
--- NOTE | 2020-08-27 10:59 | DCPLANNER ---
logistics solution manager had message to schedule an outpatient stress test for patient. logistics solution manager faxed signed order to centralized scheduling, rn case manager will call for appointment information.
--- NOTE | 2020-09-07 11:57 | DCPLANNER ---
manager infrastructure received notification that patient denied the request for a stress test ordered by Dr. Patterson. manager infrastructure called patient and informed patient that insurance denied the request for the stress test. Patient will need to follow up with primary care physician. manager infrastructure offered to make a follow up appointment for patient with primary care, patient stated that she would make the follow up appointment.
== END 2020-08-26 16:16 | disposition home or self-care (01) ==
PROVIDERS: Emergency Provider Family Medicine; PCP Nurse Practitioner
DX: R07.89 Other chest pain (principal); J43.9 Emphysema, unspecified; F17.210 Nicotine dependence, cigarettes, uncomplicated
CPT/HCPCS: 36415; 71045; 80053; 84484; 85025; 93005; 99284

== ENCOUNTER → 2021-03-05 14:20 | Outpatient (BNVA) | payer OTHER, SELFPAY | PROVIDERS: PCP Nurse Practitioner; Visit Provider Nurse Practitioner | DX: R05.9 Cough, unspecified (principal); J18.9 Pneumonia, unspecified organism | CPT/HCPCS: 87426 ==

== ENCOUNTER → 2021-08-29 17:16 | Outpatient (BNVA) | payer OTHER, SELFPAY | PROVIDERS: PCP Nurse Practitioner; Visit Provider Registered Nurse Neonatal Intensive Care | DX: B34.9 Viral infection, unspecified (principal) | CPT/HCPCS: 87400 ==

== ENCOUNTER → 2021-09-02 11:50 | Outpatient (BNVA) | payer OTHER, SELFPAY | PROVIDERS: PCP Nurse Practitioner; Visit Provider Nurse Practitioner Family | DX: R05.9 Cough, unspecified (principal); J44.1 Chronic obstructive pulmonary disease with (acute) exacerbation | CPT/HCPCS: 71046; 85025 ==

== ENCOUNTER → 2021-10-05 10:15 | Outpatient (BNVA) | payer OTHER, SELFPAY | PROVIDERS: PCP Nurse Practitioner; Visit Provider Nurse Practitioner Family | DX: R05.9 Cough, unspecified (principal); J18.9 Pneumonia, unspecified organism; J44.1 Chronic obstructive pulmonary disease with (acute) exacerbation | CPT/HCPCS: 87635; 87801 ==

== ENCOUNTER 2021-10-18 08:26 | Outpatient (CLI) | payer OTHER, SELFPAY ==
--- NOTE | 2021-10-18 08:30 | CT_ITS ---
WS: [id number] CT CHEST WITHOUT INTRAVENOUS CONTRAST HISTORY: Lung Nodule TECHNIQUE: Contiguous 5 mm axial imaging performed on the thorax. Coronal and sagittal reformats are submitted. All CT scans at [facility] use at least one of these dose optimization techniques: automated exposure control; mA and/or kV adjustment per patient size (includes targeted exams where dose is matched to clinical indication); or iterative reconstruction. CONTRAST: None DLP: 349.81 mGy.cm COMPARISON: 02/29/2020, 10/16/2019, 07/13/2020 Lungs and central airway: Marked pulmonary hyperinflation. 5 mm nodule described on 2020 is reident ified and now appears more linear but no increase in size. There are bilateral areas of consolidation and opacifications and nodules. No new or suspicious nodule. Bronchiectasis with bronchial wall thic kening is reidentified involving all lobes. Subsegmental atelectasis in the mid RIGHT lung is stable. Pleura: Normal. No pleural effusion. Heart and pericardium: Normal size heart with no pericardial effusion. Mediastinum and mirna: No adenopathy identified on this unenhanced study. Calcified bilateral hilar ly mph nodes. Vessels: Mild atherosclerosis aorta. Normal size pulmonary artery. Chest wall and lower neck: Mild heterogeneity in the RIGHT thyroid. Upper abdomen: Mild hyperplasia LEFT adrenal gland. Visualized liver is normal. Osseous structures: No destructive process. CT/CT chest wo con [id number] IMPRESSION: 1. Continued bilateral areas of chronic consolidation, bronchiectasis and atel ectasis. No progression. 2. No increase in size of the 5 mm recently described LEFT lower lobe nodule. Stable since 10/16/2019.
--- NOTE | 2021-10-18 13:43 | PFTS_ITS ---
Date of Study:10/18/21 Date of Dictation: MECHANICS: Forced vital capacity (FVC) is reduced. Forced expiratory volume in one second (FEV1) is reduced. FEV1/FVC is reduced. FLOW VOLUME LOOP: Reduced lateral lung volumes with significant scooping. LUNG VOLUMES: Total lung capacity (TLC) is normal. Residual volume (RV) is increased. DIFFUSING CAPACITY FOR CARBON MONOXIDE: Severely reduced. INTERPRETATION: The postbronchodilator spirometry is consistent with severe airflow obstruction. There is no significant postbronchodilator response. Lung volumes are consistent with air trapping. Gas exchange (DLCO) is severely reduced. MTDD
== END 2021-10-18 08:27 | disposition home or self-care (01) ==
PROVIDERS: PCP Nurse Practitioner; Visit Provider Internal Medicine Critical Care Medicine
DX: R91.1 Solitary pulmonary nodule (principal)
CPT/HCPCS: 71250; 94060; 94726; 94729; J7611

== ENCOUNTER → 2022-03-13 16:20 | Outpatient (BNVA) | payer OTHER, SELFPAY | PROVIDERS: PCP Nurse Practitioner; Visit Provider Internal Medicine Pulmonary Disease | DX: J40 Bronchitis, not specified as acute or chronic (principal); J44.9 Chronic obstructive pulmonary disease, unspecified; F17.200 Nicotine dependence, unspecified, uncomplicated | CPT/HCPCS: 87070; 87077; 87186; 87205 ==

== ENCOUNTER → 2022-06-05 14:30 | Outpatient (BNVA) | payer OTHER, SELFPAY | PROVIDERS: PCP Nurse Practitioner; Visit Provider Nurse Practitioner Family | DX: R05.9 Cough, unspecified (principal); J44.1 Chronic obstructive pulmonary disease with (acute) exacerbation | CPT/HCPCS: 87400; 87426 ==

== ENCOUNTER 2022-10-12 08:31 | Outpatient (CLI) | payer OTHER, SELFPAY ==
--- NOTE | 2022-10-12 09:00 | CT_ITS ---
WS: [id number] LDCT LUNG CANCER SCREENING HISTORY: F17.200 - Nicotine dependence, unspecified, uncomplicated TECHNIQUE: Axial imaging performed from the apices to 1 cm below the costophrenic angles. Coronal and sagittal reformats are submitted with axial MIP series. All CT scans at [facility] use at least one of these dose optimization techniques: automated exposure control; mA and/or kV adjustment per patient size (includes targeted exams where dose is matched to clinical indication); or iterativ e reconstruction. DLP: 36.53 mGy.cm DIvol: Mean CTDIvol: 0.40 (mGy) COMPARISON: Chest CT 10/18/2021, 07/13/2020 Diagnostic quality: Satisfactory Lungs: Marked hyperexpansion centrilobular emphysema. Marked fibrosis and sclerosis at the lung apice s with increased soft tissue is similar to prior studies. There are a few scattered subcentimeter nod ules. These are stable. No new or enlarging mass. Marked bronchiectasis with bronchial wall thickenin g and atelectasis in the RIGHT middle lobe. Additional mucus secretions proximal RIGHT lower lobe bronchi. To a lesser extent similar findings LE FT lower lobe bronchi. Heart: Normal size heart with no pericardial effusion.. Other findings: Atherosclerotic plaque in aorta. No adenopathy. CT/CT lung screening [id number] IMPRESSION: LUNG-RADS: 2-Benign Appearance or Behavior FOLLOW UP: 12 Month: Continue annual screening with LDCT OTHER FINDINGS (S MODIFIER): None.
== END 2022-10-12 08:32 | disposition home or self-care (01) ==
PROVIDERS: PCP Nurse Practitioner; Visit Provider Internal Medicine Pulmonary Disease
DX: Z12.2 Encounter for screening for malignant neoplasm of respiratory organs (principal); F17.200 Nicotine dependence, unspecified, uncomplicated; J43.2 Centrilobular emphysema; J47.9 Bronchiectasis, uncomplicated; J98.11 Atelectasis
CPT/HCPCS: 71271

== ENCOUNTER → 2023-01-17 16:52 | Outpatient (BNVA) | payer OTHER, SELFPAY | PROVIDERS: PCP Nurse Practitioner; Visit Provider Nurse Practitioner Family | DX: J44.1 Chronic obstructive pulmonary disease with (acute) exacerbation (principal); J18.9 Pneumonia, unspecified organism | CPT/HCPCS: 80053 ==

== ENCOUNTER 2023-05-17 18:00 | Emergency (ER) | payer SELFPAY ==
[2023-05-17 18:03] VITALS: BP 112/70; PULSE 96; RESP 16; TEMP 36.6; O2SAT 96; BMI 13.2
--- NOTE | 2023-05-17 18:16 | XRR_ITS ---
PROCEDURE INFORMATION: Exam: XR Chest Exam date and time: 05/17/2023 6:31 PM Age: 63 years old Clinical indication: Angina; Additional info: Cp TECHNIQUE: Imaging protocol: Radiologic exam of the chest. Views: 1 view. COMPARISON: CT lung screening [id number] 10/12/2022 9:39 AM FINDINGS: Lungs: Increased interstitial markings with peribronchial cuffing in the lung bases are nonspecific but can be seen the setting of bronchitis, viral infection and small-vessel airways disease. The lungs are hyper expanded with flattening of the hemidiaphragms which can be seen the setting of emphysema and COPD. Pleural spaces: Unremarkable. No pleural effusion. No pneumothorax. Heart/Mediastinum: Unremarkable. No cardiomegaly. Bones/joints: Unremarkable. XR/XR chest 1V portable [id number] IMPRESSION: 1. Increased interstitial markings with peribronchial cuffing in the lung bases are nonspecific but can be seen the setting of bronchitis, viral infection and small-vessel airways disease. 2. The lungs are hyper expanded with flattening of the hemidiaphragms which can be seen the setting of emphysema and COPD.
--- NOTE | 2023-05-17 18:17 | ECG_ITS ---
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 Measurements Intervals [place] Rate: 94 P: 85 VA: 104 QRS: 90 QRSD: 89 T: 84 QT: 316 QTc: 396 Interpretive Statements SINUS RHYTHM WITH SHORT VA INTERVAL MINIMAL ST DEPRESSION [0.025+ mV ST DEPRESSION] Compared to ECG 08/26/2020 14:07:19 ST (T wave) deviation now present Electronically Signed On 05-17-2023 18:30:07 PASSEMENTERIE WORKER by Frankie Mcmahan M.D. [id number]
--- NOTE | 2023-05-17 18:20 | ED_ITS ---
HPI - Abdominal Pain 2 General: Chief Complaint: Abdominal Pain Stated Complaint: lower abd and back pain Time Seen by Provider: 05/17/23 18:09 Source: patient Mode of arrival: ambulatory Limitations: no limitations History of Present Illness: 63-year-old female states she has been h aving sharp left-sided chest pains in her lower left chest also in her left upper abdomen. States it is worse with movement and palpation and with deep breaths. She has had a chronic cough she is a smoker. States her pain is worse with coughing as well denies any vomiting denies any diarrhea. She had a hysterectomy and a cholecystectomy. Associated Symptoms: Denies chills, diarrhea, dysuria, fever(s), nausea and vomiting Review of Systems 2 Const: Denies: fever(s), chills, body aches or change in appetite ENMT: Denies: throat pain or dental pain Card: Reports: chest pain Resp: Denies: dyspnea GI: Reports: abdominal pain; Denies: nausea, vomiting or diarrhea : Denies: dysuria Musc: Denies: neck pain or back pain Skin/Breast: Denies: rash Neuro: Denies: headache(s) PFSH ED 2 PFSH: Medical History (Updated 05/17/23 @ 19:52 by Sly Grimes MD) Neuralgia, post-herpetic COPD (chronic obstructive pulmonary disease) Alveolar emphysema of lung Surgical History History of hysterectomy History of cholecystectomy Family History Other CAD (coronary artery disease) COPD (chronic obstructive pulmonary disease) Cancer Denies family history of Bleeding disorder Social History Smoking and tobacco/nicotine status: current every day tobacco/nicotine user cigarettes Packs smoked per day: 1 Years cigarettes smoked: 40 [ Other cigarette details: started at age 21 years] Second hand smoke exposure: Yes Alcohol intake: never Substance/Drug Use: never Adopted: No Caregiver/support person: No Lives independently: Yes Household members: spouse Marital status: Number of children: 3 service: No Current occupational status: employed Current occupation: [employer] Do you think of yourself as: Straight/Heterosexual Current gender identity: Female Physical Exam 2 Const: COMMON NORMALS: no acute distress, patient oriented x3 and healthy appearing HENMT: COMMON NORMALS: normocephalic and atraumatic HEAD & SCALP: n ormocephalic and atraumatic Eye: COMMON NORMALS: Equal, round and reactive pupils present and EOMs intact bilaterally PUPIL: Yes Equal, round and reactive pupils present Neck/C-Spine: COMMON NORMALS: full ROM and supple Chest: COMMONS NORMALS: normal inspection of the chest OTHER: Point tender over left lower chest over the ribs reproduces her pain. Resp: COMMON NORMALS: normal respiratory effort, No retractions, No use of accessory muscles and clear to auscultation bilaterally AUSCULTATION: clear to auscultation bilaterally Cardio: COMMON NORMALS: regular rate, regular rhythm and No murmurs present (Cardio) RATE: regular rate RHYTHM: regular rhythm GI: COMMON NORMALS: Normal to inspection, nondistended, normoactive bowel sounds present, Soft to palpation, non-tender and no masses PALPATION: Yes Soft to palpation Extremity: COMMON NORMALS: normal to inspection and full ROM Neuro: COMMON NORMALS: patient oriented x3, moves all extremities and no focal motor deficits Psych: COMMON NORMALS: mental status grossly normal, Normal thought process present and cooperative THOUGHT PROCESS: Normal thought process present Skin: COMMON NORMALS: no rashes or lesions noted and no wounds GENERAL SKIN EXAM: no rashes or lesions noted Course 2 Vital Signs: Vital signs: Vital Signs Temperature 97.9 F 05/17/23 20:13 Pulse Rate 89 05/17/23 20:13 Respiratory Rate 18 05/17/23 20:13 Blood Pressure 96/80 05/17/23 20:13 Pulse Oximetry 95 05/17/23 20:13 Oxygen Delivery Me thod Room Air 05/17/23 18:47 MDM - Abdominal Pain Medical Decision Making Patient presents with cough along with left-sided chest pain chest pains likely muscular she is point tender on her left chest no signs of acute coronary syndrome did have elevated white count did CT her abdomen she is having some abdominal pain CT abdomen is normal x-ray showed a possible pneumonia she is to follow-up with PCP will prescribe her pain meds along with antibiotics. Medical Records I reviewed the patient's medical records. Lab Data I reviewed the patient's lab results. 05/17/23 18:39 05/17/23 18:39 Labs/Radiology: Radiology Impressions Chest X-Ray 05/17/23 18:16 IMPRESSION: 1. Increased interstitial markings with peribronchial cuffing in the lung bases are nonspecific but can be seen the setting of bronchitis, viral infection and small-vessel airways disease. 2. The lungs are hyper expanded with flattening of the hemidiaphragms which can be seen the setting of emphysema and COPD. Abdomen/Pelvis CT 05/17/23 18:56 IMPRESSION: 1. Severe emphysematous changes in the lung bases. 2. Partially visualized irregular opacities in the bilateral lung bases. Findings are similar to the prior chest CT dated 02/29/2020. 3. No bowel obstruction or inflammatory process associated with the bowel. 4. No free air or significant free fluid in the abdomen or pelvis. 5. The appendix images normally. Laboratory Results WBC 19.70 10^3/uL (3.29-11.43) H 05/17/23 18:39 RBC 3.57 10^6/uL (3.85-5.65) L 05/17/23 18:39 Hgb 11.10 g/dL (11.27-16.99) L 05/17/23 18:39 Hct 33.0 % (36-47) L 05/17/23 18:39 MCV 92.4 fl (85-98) 05/17/23 18:39 MCH 31.1 pg (27-33) 05/17/23 18:39 MCHC 33.6 g/dL (30-55) 05/17/23 18:39 RDW 14.8 % (12.1-15.1) 05/17/23 18:39 Plt Count 362 10^3/cmm (157-399) 05/17/23 18:39 MPV 8.7 fL (7.4-10.4) 05/17/23 18:39 Neut % (Auto) 82.9 % 05/17/23 18:39 Lymph % (Auto) 9.9 % 05/17/23 18:39 [place] % (Auto) 6.3 % 05/17/23 18:39 Eos % (Auto) 0.1 % 05/17/23 18:39 Baso % (Auto) 0.3 % 05/17/23 18:39 Neut # (Auto) 16.33 10^3/uL (1.8-7.7) H 05/17/23 18:39 Lymph # (Auto) 2.0 10^3/uL (0.8-4.8) 05/17/23 18:39 [place] # (Auto) 1.2 10^3/uL (0.2-0.9) H 05/17/23 18:39 Eos # (Auto) 0.0 10^3/uL (0.0-0.8) 05/17/23 18:39 Baso # (Auto) 0.1 10^3/uL (0.0-0.1) 05/17/23 18:39 Nucleated RBC % (auto) 0 % 05/17/23 18:39 Nucleated RBCs # 0.0 /100WBC 05/17/23 18:39 Sodium 131 mmol/L (136-145) L 05/17/23 18:39 Potassium 3.7 mmol/L (3.5-5.1) 05/17/23 18:39 Chloride 96 mmol/L (98-107) L 05/17/23 18:39 Carbon Dioxide 23 mmol/L (22-29) 05/17/23 18:39 Anion Gap 15.7 (5-19) 05/17/23 18:39 BUN 15 mg/dL (8-23) 05/17/23 18:39 Creatinine 0.6 mg/dL (0.5-0.9) 05/17/23 18:39 GFR Calculation 101.6 mL/min (90-130) 05/17/23 18:39 Glucose 110 mg/dL (65-115) 05/17/23 18:39 Calculated Osmolality 273 mOsm/kg (285-295) L 05/17/23 18:39 Calcium 9.0 mg/dL (8.5-10.5) 05/17/23 18:39 Total Bilirubin 0.3 mg/dL (0.15-1.2) 05/17/23 18:39 AST 8 U/L (0-32) 05/17/23 18:39 ALT 6 U/L (0-33) 05/17/23 18:39 Alkaline Phosphatase 71 U/L (35-105) 05/17/23 18:39 Total Protein 6.9 g/dL (6.6-8.7) 05/17/23 18:39 Albumin 3.2 g/dL (3.5-5.2) L 05/17/23 18:39 Globulin 3.7 g/dL (1.3-4.6) 05/17/23 18:39 Lipase 33 U/L (13-60) 05/17/23 18:39 No radiology studies performed this visit EKG Data EKG 1: I personally reviewed and interpreted this EKG as follows: EKG interpretation date: 05/17/23 EKG interpretation time: 18:23 Interpretation: nsr hr [address] or t wave abnormalitis qrs 89 qtc 368 Discharge Plan Discharge Patient Disposition: Home Clinical Impression: Chest wall pain, Pneumonia Condition: Stable Prescriptions: New hydrocodone-acetaminophen 5-325 mg tablet 1 tab PO Q6H PRN (Reason: pain) Qty: 14 0RF ondansetron 4 mg tablet,disintegrating 4 mg PO Q6H PRN (Reason: nausea and vomiting) Qty: 14 0RF doxycycline hyclate 100 mg tablet 100 mg PO BID 7 Days Qty: 14 0RF No Action guaifenesin [Mucinex Fast-Max Chest-Congest] 100 mg/5 mL liquid 200 mg PO Q4H PRN (Reason: cough) Qty: 473 0RF albuterol sulfate 90 mcg/actuation HFA aerosol inhaler 2 puff inhalation Q6H PRN (Reason: bronchospasm) Qty: 8.5 5RF promethazine-DM 6.25-15 mg/5 mL syrup 5 - 10 ml PO Q6H PRN (Reason: cough) Qty: 200 1RF prednisone 20 mg tablet 20 mg PO BID 5 Days Qty: 10 0RF levofloxacin 500 mg tablet 500 mg PO DAILY 5 Days Qty: 5 0RF (DME) nebulizer accessories Kit See Rx Instructions .Route Qty: 1 0RF Rx Instructions: As directed (DME) Oxygen @ 2L per n/c See Rx Instructions .Route .MEDSUPPLY Qty: 1 0RF Rx Instructions: please provide concentrator, portable tanks and tubing supplies albuterol sulfate 2.5 mg /3 mL (0.083 %) solution for nebulization 2.5 mg inhalation Q4H PRN (Reason: Shortness Of Breath) Qty: 300 5RF Trelegy Ellipta 100-62.5-25 mcg blister with device 1 inh inhalation DAILY Qty: 60 6RF Adult Low Dose Aspirin 81 mg tablet,delayed release (DR/EC) 81 mg PO DAILY Qty: 90 0RF Discharge Orders: Discharge ED (Routine); Ordered 05/17/23 Ordered By: Sly Grimes Referrals: Irina Caruso, BIOLOGICAL SCIENTIST-C [Primary Care Provider] - Discharge Diet: Advance as tolerated Discharge Activity: Resume usual activity Patient Instructions: Pneumonia (ED), Chest Wall Pain (ED) Coding Level of Care Code ED Sonogram Technician for Efrain Crain
[2023-05-17 18:21] VITALS: BP 91/91; PULSE 95; RESP 19; O2SAT 95
[2023-05-17 18:47] VITALS: BP 96/80; PULSE 89; RESP 29; O2SAT 95
[2023-05-17] MEDS: ondansetron 2 mg/ML SDV 2 mL 4 MG IVP (18:50)
[2023-05-17] MEDS: ketorolac 30 mg/mL INJ 15 MG IVP (18:50)
[2023-05-17 18:52] LABS: Basophils # 0.1 10^3/uL (0.0-0.1); Basophils % 0.3 %; Eosinophils % 0.1 %; Lymphocytes % 9.9 %; Mean Corpuscular HGB Conc 33.6 g/dL (30-55); Mean Corpuscular Hemoglobin 31.1 pg (27-33); Mean Corpuscular Volume 92.4 fl (85-98); Mean Platelet Volume 8.7 fL (7.4-10.4); Monocytes # 1.2 10^3/uL (0.2-0.9); Monocytes % 6.3 %; Neutrophils # 16.33 10^3/uL (1.8-7.7); Neutrophils % 82.9 %; Nucleated Red Blood Cells % 0 %; Platelet Count 362 10^3/cmm (157-399); Red Blood Count 3.57 10^6/uL (3.85-5.65); Red Cell Distribution Width 14.8 % (12.1-15.1)
--- NOTE | 2023-05-17 18:56 | CTR_ITS ---
PROCEDURE INFORMATION: Exam: CT Abdomen And Pelvis With Contrast Exam date and time: 05/17/2023 7:30 PM Age: 63 years old Clinical indication: Abdominal pain; Generalized; Prior surgery; Surgery date: 6+ months; Surgery type: Hyst, andres; Additional info: Abd pain TECHNIQUE: Imaging protocol: Computed tomography of the abdomen and pelvis with contrast. Radiation optimization: All CT scans at this facility use at least one of these dose optimization techniques: automated exposure control; mA and/or kV adjustment per patient size (includes targeted exams where dose is matched to clinical indication); or iterative reconstruction. Contrast material: OMNI 350; Contrast volume: 75 ml; Contrast route: INTRAVENOUS (IV); COMPARISON: CT angio chest w abd pel w con 02/29/2020 7:38 PM RADIATION DOSE METRICS: Total DLP (mGy-cm): 254 FINDINGS: Lungs: Severe emphysematous changes in the lung bases. Partially visualized irregular opacities in the bilateral lung bases. Findings are similar to but slightly improved from the prior chest CT dated 02/29/2020. Liver: Normal. No mass. Gallbladder and bile ducts: The gallbladder is absent. Pancreas: Normal. No ductal dilation. Spleen: Normal. No splenomegaly. Adrenal glands: Normal. No mass. Kidneys and ureters: Normal. No hydronephrosis. Stomach and bowel: Unremarkable. No obstruction. No mucosal thickening. Appendix: No evidence of appendicitis. Intraperitoneal space: Unremarkable. No free air. No significant fluid collection. Vasculature: Unremarkable. No abdominal aortic aneurysm. Lymph nodes: Unremarkable. No enlarged lymph nodes. Urinary bladder: Unremarkable as visualized. Reproductive: Unremarkable as visualized. Bones/joints: Unremarkable. No acute fracture. Soft tissues: Unremarkable. CT/CT abdomen pelvis w con* [id number] IMPRESSION: 1. Severe emphysematous changes in the lung bases. 2. Partially visualized irregular opacities in the bilateral lung bases. Findings are similar to the prior chest CT dated 02/29/2020. 3. No bowel obstruction or inflammatory process associated with the bowel. 4. No free air or significant free fluid in the abdomen or pelvis. 5. The appendix images normally.
[2023-05-17 19:11] LABS: Alanine Aminotransferase 6 U/L (0-33); Albumin Level 3.2 g/dL (3.5-5.2); Alkaline Phosphatase 71 U/L (35-105); Anion Gap 15.7 (5-19); Aspartate Amino Transferase 8 U/L (0-32); Blood Urea Nitrogen 15 mg/dL (8-23); Carbon Dioxide 23 mmol/L (22-29); Chloride 96 mmol/L (98-107); Globulin 3.7 g/dL (1.3-4.6); Glomerular Filtration Rate 101.6 mL/min (90-130); Glucose 110 mg/dL (65-115); Lipase 33 U/L (13-60); Osmolality Calculated 273 mOsm/kg (285-295); Potassium 3.7 mmol/L (3.5-5.1); Sodium 131 mmol/L (136-145); Total Bilirubin 0.3 mg/dL (0.15-1.2); Total Protein 6.9 g/dL (6.6-8.7)
[2023-05-17] MEDS: iohexol 350 mg/mL 500 mL Btl (per mL) IV (19:26)
--- NOTE | 2023-05-17 20:02 | PC.NURSE ---
discharge delayed d/t delay on prescriptions being sent to pharmacy. pending received confirmation.
[2023-05-17 20:13] VITALS: BP 96/80; PULSE 89; RESP 18; TEMP 36.6; O2SAT 95
== END 2023-05-17 20:14 | disposition home or self-care (01) ==
PROVIDERS: Emergency Provider Emergency Medicine; PCP Nurse Practitioner
DX: R07.89 Other chest pain (principal); Z79.82 Long term (current) use of aspirin; J44.9 Chronic obstructive pulmonary disease, unspecified; F17.210 Nicotine dependence, cigarettes, uncomplicated
CPT/HCPCS: 36415; 71045; 74177; 80053; 83690; 85025; 93005; 96374; 96375; 99285; J1885; J2405; Q9967

== ENCOUNTER 2023-11-19 09:32 | Outpatient (CLI) | payer BC, SELFPAY ==
--- NOTE | 2023-11-19 10:00 | CT_ITS ---
WS: [id number] LDCT LUNG CANCER SCREENING TECHNIQUE: Noncontrast CT of the chest with coronal and sagittal reformatted images. CLINICAL INFORMATION: Cancer Screen COMPARISON: CT 10/12/2022 DLP: 44.01 mGy.cm DIvol: Mean CTDIvol: 0.60 (mGy) All CT scans at [facility] use at least one of these dose optimization techniques: automat ed exposure control; mA and/or kV adjustment per patient size (includes targeted exams where dose is matched to clinical indication); or iterative reconstruction. FINDINGS: Hyperinflation with centrilobular emphysema. Fibrosis in the lung apices similar to previous. Stable subcentimeter nodules in the lung apices. Bronchiectasis with subsegmental atelectasis RIGHT middle lobe. Progressed pleural parenchymal scarri ng in both lower lobes both lower lobes similar to previous with perihilar bronchiectasis. Traction b ronchiectasis RIGHT middle lobe and RIGHT upper lobe. Fibrotic 7 mm opacity LEFT lower lobe new from previous with pleural parenchymal scarring. New fibrot ic wedge-shaped opacity RIGHT lower lobe with pleural parenchymal scarring. Recommend 6-month follow- up. Moderate thoracic kyphosis. CT/CT lung screening [id number] IMPRESSION: LUNG-RADS: 3-Probably Benign FOLLOW UP: 6 Month LDCT
== END 2023-11-19 09:33 | disposition home or self-care (01) ==
PROVIDERS: PCP Nurse Practitioner; Visit Provider Internal Medicine Pulmonary Disease
DX: F17.210 Nicotine dependence, cigarettes, uncomplicated (principal); J43.2 Centrilobular emphysema; R91.8 Other nonspecific abnormal finding of lung field
CPT/HCPCS: 71271

== ENCOUNTER → 2024-03-11 08:27 | Outpatient (BNVA) | payer BC, SELFPAY | PROVIDERS: PCP Nurse Practitioner; Visit Provider Nurse Practitioner | DX: R05.9 Cough, unspecified (principal) | CPT/HCPCS: 71046; 80053; 80061; 82306; 84443; 85025 ==

== ENCOUNTER → 2024-03-19 13:32 | Outpatient (BNVA) | payer BC, SELFPAY | PROVIDERS: PCP Nurse Practitioner; Visit Provider Nurse Practitioner | DX: J44.1 Chronic obstructive pulmonary disease with (acute) exacerbation (principal) | CPT/HCPCS: 71046 ==

== ENCOUNTER 2024-06-09 11:44 | Outpatient (CLI) | payer BC, SELFPAY ==
--- NOTE | 2024-06-09 11:48 | CT_ITS ---
WS: [id number] CT chest wo con [id number] HISTORY: R91.8 - Other nonspecific abnormal finding of lung field TECHNIQUE: Axial imaging performed through the thorax. Coronal and sagittal reformats are submitted. All CT scans at [facility] use at least one of these dose optimization techniques: automated exposure control; mA and/or kV adjustment per patient size (includes targeted exams where dose is mat ched to clinical indication); or iterative reconstruction. CONTRAST: None DLP: 201.15 mGy.cm COMPARISON: Chest radiograph 03/19/2024, CT 11/19/2023, 10/18/2021 Lungs and central airway: Severe bullous emphysema. Biapical pleural thickening and fibrosis. Atelect asis with bronchiectasis in the RIGHT middle lobe is new. Additional bronchiectasis in the upper lung owen. There are a few scattered opacifications which are reidentified throughout both lungs. There are a few small nodules. No new or increasing mass or nodule. Pleura: Normal. No pleural effusion. Heart and pericardium: Normal size heart with no pericardial effusion. Mediastinum and mirna: 2 Vessels: Mild atherosclerosis aorta. Normal size pulmonary artery. Chest wall and lower neck: No soft tissue masses. Upper abdomen: No adrenal mass. Osseous structures: No destructive process. CT/CT chest wo con [id number] IMPRESSION: 1. Severe bullous emphysema. 2. Subsegmental atelectasis with bronchiectasis RIGHT middle lobe. 3. Additional bronchiectasis in the upper lung owen. 4. Additional scattered nodules and irregular opacifications throughout both l ungs, stable since 10/18/2021. Recommend continued yearly chest CT evaluation.
== END 2024-06-09 11:45 | disposition home or self-care (01) ==
PROVIDERS: PCP Nurse Practitioner; Visit Provider Nurse Practitioner
DX: R91.8 Other nonspecific abnormal finding of lung field (principal); J43.8 Other emphysema; J98.11 Atelectasis; J47.9 Bronchiectasis, uncomplicated; J84.10 Pulmonary fibrosis, unspecified; J92.9 Pleural plaque without asbestos
CPT/HCPCS: 71250

== ENCOUNTER → 2024-06-13 11:07 | Outpatient (BNVA) | payer BC, SELFPAY | PROVIDERS: PCP Nurse Practitioner; Visit Provider Emergency Medicine | DX: R50.9 Fever, unspecified (principal) | CPT/HCPCS: 87400; 87426 ==

== ENCOUNTER → 2024-06-24 14:48 | Outpatient (BNVA) | payer BC, SELFPAY | PROVIDERS: PCP Nurse Practitioner; Visit Provider Nurse Practitioner | DX: J44.9 Chronic obstructive pulmonary disease, unspecified (principal); R00.0 Tachycardia, unspecified | CPT/HCPCS: 71046; 84443 ==

== ENCOUNTER 2024-06-30 09:00 | Inpatient (IN) | payer BC, SELFPAY ==
[2024-06-30] VITALS (57 sets, daily range): BP systolic 72–109; BP diastolic 42–68; PULSE 72–117; RESP 20–42; TEMP 36.4–37.1; O2SAT 64–100; BMI 13.4
--- NOTE | 2024-06-30 09:22 | ECG_ITS ---
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 Measurements Intervals [place] Rate: 116 P: 89 WA: 137 QRS: 95 QRSD: 90 T: 66 QT: 274 QTc: 381 Interpretive Statements SINUS TACHYCARDIA RIGHT ATRIAL ENLARGEMENT [0.3mV P-WAVE] LEFT ATRIAL ENLARGEMENT [-0.15mV P-WAVE IN V1/V2] BORDERLINE RIGHT AXIS DEVIATION [QRS AXIS > 90] POSSIBLE RIGHT VENTRICULAR CONDUCTION DELAY [RSR (QR) IN V1/V2] NONSPECIFIC T-WAVE ABNORMALITY Compared to ECG 05/17/2023 18:23:15 Atrial abnormality now present T-wave abnormality now present.Sinus rhythm no longer present Short WA interval no longer present . ST (T wave) deviation no longer present Electronically Signed On 06-30-2024 11:21:19 ASSOCIATE PROFESSOR OF HISTORY by Ben Vora M.D. [id number]
--- NOTE | 2024-06-30 09:26 | XR_ITS ---
WS: [id number] Exam: XR chest 1V portable [id number] Date/Time of Exam: 06/30/2024 9:30 AM Reason For Exam: chest pain Comparison 06/24/2024. The lungs are hyperinflated. Extensive changes of fibrosis and honeycombing identified in the mid and lower lung zones most prevalent on the RIGHT. Heart size is normal. The mediastinum is normal in contour. Bilateral apical pleural thickening. No pneumothorax or pleural effusion. Bony structures are intact. XR/XR chest 1V portable [id number] IMPRESSION: 1. Pulmonary hyperinflation. No acute process. 2. Extensive scarring and honeycombing noted throughout the mid and lower bilat eral lung zones.
[2024-06-30 10:49] LABS: Basophils # 0.1 10^3/uL (0.0-0.1); Basophils % 0.6 %; Eosinophils # 0.4 10^3/uL (0.0-0.8); Eosinophils % 3.3 %; Hematocrit 37.4 % (36-47); Lymphocytes # 0.9 10^3/uL (0.8-4.8); Lymphocytes % 7.1 %; Mean Corpuscular HGB Conc 33.2 g/dL (30-55); Mean Corpuscular Hemoglobin 30.5 pg (27-33); Mean Corpuscular Volume 91.9 fl (85-98); Mean Platelet Volume 9.3 fL (7.4-10.4); Monocytes # 0.6 10^3/uL (0.2-0.9); Neutrophils # 10.25 10^3/uL (1.8-7.7); Neutrophils % 83.3 %; Nucleated Red Blood Cells % 0 %; Platelet Count 347 10^3/cmm (157-399); Red Blood Count 4.07 10^6/uL (3.85-5.65); Red Cell Distribution Width 14.6 % (12.1-15.1); White Blood Count 12.31 10^3/uL (3.29-11.43)
[2024-06-30 11:13] LABS: Troponin(5th) Baseline 7 ng/L (0-10)
[2024-06-30 11:23] LABS: NT Pro B Type Natriuretic Pept 278 pg/mL (0-125); Procalcitonin 0.23 ng/mL (0-0.5)
--- NOTE | 2024-06-30 11:26 | ECG_ITS ---
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
[2024-06-30 11:34] LABS: Alanine Aminotransferase < 5 U/L (0-33); Albumin Level 3.1 g/dL (3.5-5.2); Alkaline Phosphatase 104 U/L (35-105); Aspartate Amino Transferase 12 U/L (0-32); Blood Urea Nitrogen 14 mg/dL (8-23); Calcium 9.2 mg/dL (8.5-10.5); Carbon Dioxide 19 mmol/L (22-29); Chloride 97 mmol/L (98-107); Globulin 3.5 g/dL (1.3-4.6); Glomerular Filtration Rate 84.8 mL/min (90-130); Glucose 93 mg/dL (65-115); Osmolality Calculated 280 mOsm/kg (285-295); Sodium 135 mmol/L (136-145); Total Bilirubin 0.5 mg/dL (0.15-1.2); Total Protein 6.6 g/dL (6.6-8.7)
--- NOTE | 2024-06-30 11:35 | ED_ITS ---
HPI - SOB/Dyspnea 2 General: Chief Complaint: Shortness of Breath/Dyspnea Stated Complaint: sob, high h/r Time Seen by Provider: 06/30/24 11:24 History of Present Illness: HPI Narrative: 64-year-old female presents to the [facility] ency room with complaints of shortness of breath progressively worse in the last few days. 2 weeks ago she had influenza. Patient presented here with shortness of breath O2 sat in the upper 70s on room air at home she had been close 86 she has a moderately productive cough. After she arrived she was placed on BiPAP due to her significant work of breathing. Associated symptoms: Reports chest congestion; Deny abdominal pain, chest pain or fever(s) Related Data Previous Rx's ?Medication ?Instructions ?Recorded aspirin 81 mg tablet,delayed 81 mg PO DAILY #90 tabs 0 08/26/20 release (Adult Low Dose Aspirin) albuterol sulfate 2.5 mg/3 mL 2.5 mg (3 mL) inhalation Q4H PRN 03/08/23 (0.083 %) solution for nebulization Shortness Of Breat h #300 mL albuterol sulfate 90 mcg/actuation 2 puff inhalation Q 6H PRN 10/24/23 aerosol inhaler bronchospasm #8.5 grams ergocalciferol (vitamin D2) 1,250 1,250 mcg PO .monthl y #1 cap 03/13/24 mcg (50,000 unit) capsule acetylcysteine 600 mg capsule 600 mg PO BID #60 caps 0 05/22/24 fluticasone fur. 100 mcg-umeclid 1 inh inhalation MAGGIE Y #28 ea 06/26/24 62.5 mcg-vilant 25 mcg inhalat.powder (Trelegy Ellipta) Allergies Allergy/AdvReac Type Severity Reaction Status Date / Time codeine Allergy ADR-Nausea Verified 06/30/24 09:27 morphine Allergy ALGY-Hives Verified 06/30/24 09:27 Review of Systems 2 Const: Denies: fever(s) or chills Card: Denies: chest pain Resp: Reports: dyspnea, non-productive cough, wheezing and chest congestion GI: Denies: abdominal pain : Denies: dysuria, urinary frequency or urinary urgency Musc: Denies: neck pain or back pain Skin/Breast: Denies: rash PFSH ED 2 PFSH: Medical History (Updated 07/01/24 @ 16:00 by Hossein Patterson DO) Neuralgia, post-herpetic COPD (chronic obstructive pulmonary disease) Alveolar emphysema of lung Surgical History History of hysterectomy History of cholecystectomy Family History Other CAD (coronary artery disease) COPD (chronic obstructive pulmonary disease) Cancer Denies family history of Bleeding disorder Social History Smoking and tobacco/nicotine status: current every day tobacco/nicotine user (1 ppd) cigarettes Packs smoked per day: 1 Years cigarettes smoked: 40 [ Other cigarette details: started at age 21 years] Second hand smoke exposure: Yes Alcohol intake: never Substance/Drug Use: never Adopted: No Caregiver/support person: No Lives independently: Yes Household members: spouse Marital status: Number of children: 3 service: No Current occupational status: employed Current occupation: [employer] Do you think of yourself as: Straight/Heterosexual Current gender identity: Female Physical Exam 2 Const: GENERAL APPEARANCE: cooperative ORIENTATION/CONSCIOUSNESS: Yes awake HENMT: COMMON NORMALS: normocephalic, atraumatic and hearing grossly normal bilaterally HEAD & SCALP: normocephalic and atraumatic Resp: COMMON NORMALS: normal respiratory effort, No retractions, No use of accessory muscles and clear to auscultation bilaterally AUSCULTATION: clear to auscultation bilaterally Cardio: COMMON NORMALS: regular rate, regular rhythm and No murmurs present (Cardio) RATE: regular rate RHYTHM: regular rhythm GI: COMMON NORMALS: Soft to palpation and No hepatosplenomegaly present A USCULTATION: Yes normoactive bowel sounds PALPATION: Yes Soft to palpation, No Tenderness to palpation present (GI), No Guarding due to palpation present (GI) and Yes No hepatosplenomegaly present Extremity: COMMON NORMALS: normal to inspection, capillary refill normal, no clubbing, cyanosis or edema, no calf tenderness and no pedal edema Skin: COMMON NORMALS: no rashes or lesions noted GENERAL SKIN EXAM: no rashes or lesions noted Course 2 Vital Signs: Vital signs: Vital Signs Temperature 98.4 F 07/01/24 08:00 Pulse Rate 76 07/01/24 14:05 Respiratory Rate 18 07/01/24 13:55 Blood Pressure 85/52 07/01/24 13:45 Pulse Oximetry 96 07/01/24 13:55 Oxygen Delivery Me thod Nasal Cannula 07/01/24 13:55 Oxygen Flow Rate 2 07/01/24 13:55 Fraction of Inspir ed Oxygen 30 06/30/24 18:07 MDM - SOB/Dyspnea Medical Decision Making CTA of the chest was negative for pulmonary embolus but showed Moke focal patchy consolidations. Worsening infiltrates. Patient has acute on chronic respiratory failure. Continue BiPAP will admit started on IV antibiotics cussed with hospitalist orders written Medical Records I reviewed the patient's medical records. Lab Data I reviewed the patient's lab results. 07/01/24 03:12 07/01/24 03:12 Labs/Radiology: Radiology Impressions Chest X-Ray 06/30/24 09:26 IMPRESSION: 1. Pulmonary hyperinflation. No acute process. 2. Extensive scarring and honeycombing noted throughout the mid and lower bilateral lung zones. Chest CTA 06/30/24 12:59 IMPRESSION: 1. No acute PE. 2. There are patchy areas of focal pulmonary consolidation in the middle and lower lobes of the RIGHT lung as well as the lingula and LEFT lower lobe suggesting active pneumonia. 3. Advanced superimposed chronic changes of fibrosis, honeycombing and bronchiectasis. Laboratory Results WBC 12.31 10^3/uL (3.29-11.43) H 06/30/24 10:39 RBC 4.07 10^6/uL (3.85-5.65) 06/30/24 10:39 Hgb 12.40 g/dL (11.27-16.99) 06/30/24 10:39 Hct 37.4 % (36-47) 06/30/24 10:39 MCV 91.9 fl (85-98) 06/30/24 10:39 MCH 30.5 pg (27-33) 06/30/24 10:39 MCHC 33.2 g/dL (30-55) 06/30/24 10:39 RDW 14.6 % (12.1-15.1) 06/30/24 10:39 Plt Count 347 10^3/cmm (157-399) 06/30/24 10:39 MPV 9.3 fL (7.4-10.4) 06/30/24 10:39 Neut % (Auto) 83.3 % 06/30/24 10:39 Lymph % (Auto) 7.1 % 06/30/24 10:39 [place] % (Auto) 5.0 % 06/30/24 10:39 Eos % (Auto) 3.3 % 06/30/24 10:39 Baso % (Auto) 0.6 % 06/30/24 10:39 Neut # (Auto) 10.25 10^3/uL (1.8-7.7) H 06/30/24 10:39 Lymph # (Auto) 0.9 10^3/uL (0.8-4.8) 06/30/24 10:39 [place] # (Auto) 0.6 10^3/uL (0.2-0.9) 06/30/24 10:39 Eos # (Auto) 0.4 10^3/uL (0.0-0.8) 06/30/24 10:39 Baso # (Auto) 0.1 10^3/uL (0.0-0.1) 06/30/24 10:39 Nucleated RBC % (auto) 0 % 06/30/24 10:39 Nucleated RBCs # 0.0 /100WBC 06/30/24 10:39 D-Dimer 3.55 ug/mLFEU (0-0.59) H 06/30/24 10:39 Specimen Type Arterial 06/30/24 11:58 Sample Site Radial, left 06/30/24 11:58 ABG pH 7.51 (7.35-7.45) H 06/30/24 11:58 ABG pCO2 26.4 mmHg (35-45) L 06/30/24 11:58 ABG pO2 58.4 mmHg (80.0-100.0) L 06/30/24 11:58 ABG PO2/FiO2 Ratio 278 06/30/24 11:58 ABG HCO3 20.8 mmol/L (22-26) L 06/30/24 11:58 ABG O2 Saturation 93.5 06/30/24 11:58 ABG Base Excess -0.9 mmol/L (-2.0-2.0) 06/30/24 11:58 Betito Test Pos 06/30/24 11:58 A-a O2 Gradient 7.7 mmHg (5-10) 06/30/24 11:58 Hematocrit 42.3 % (37-47) 06/30/24 11:58 Hgb O2 Saturation 91.1 % (95-100) L 06/30/24 11:58 Carboxyhemoglobin 1.7 %THgb (0.4-20.1) 06/30/24 11:58 Methemoglobin 0.9 % (0.4-1.5) 06/30/24 11:58 Total Hemoglobin 13.8 g/dL (12-16) 06/30/24 11:58 Sodium 135.0 mmol/L (131-143) 06/30/24 11:58 Potassium 3.2 mmol/L (3.5-5.0) L 06/30/24 11:58 Glucose 106.0 mg/dL (70-115) 06/30/24 11:58 Ionized Calcium 1.2 mmol/L (1.1-1.4) 06/30/24 11:58 O2 Delivery Device Room air 06/30/24 11:58 FiO2 21.0 % 06/30/24 11:58 Splunk Architect ID [email or web address] 06/30/24 11:58 Sodium 135 mmol/L (136-145) L 06/30/24 10:39 Potassium 3.7 mmol/L (3.5-5.1) 06/30/24 10:39 Chloride 97 mmol/L (98-107) L 06/30/24 10:39 Carbon Dioxide 19 mmol/L (22-29) L 06/30/24 10:39 Anion Gap 22.7 (5-19) H 06/30/24 10:39 BUN 14 mg/dL (8-23) 06/30/24 10:39 Creatinine 0.7 mg/dL (0.5-0.9) 06/30/24 10:39 GFR Calculation 84.8 mL/min (90-130) L 06/30/24 10:39 Glucose 93 mg/dL (65-115) 06/30/24 10:39 Calculated Osmolality 280 mOsm/kg (285-295) L 06/30/24 10:39 Lactic Acid 2.0 mmol/L (0.5-2.2) 06/30/24 10:39 Calcium 9.2 mg/dL (8.5-10.5) 06/30/24 10:39 Total Bilirubin 0.5 mg/dL (0.15-1.2) 06/30/24 10:39 AST 12 U/L (0-32) 06/30/24 10:39 ALT < 5 U/L (0-33) 06/30/24 10:39 Alkaline Phosphatase 104 U/L (35-105) 06/30/24 10:39 Troponin T Baseline 7 ng/L (0-10) 06/30/24 10:39 Troponin T 120 Minute 7.87 ng/L (0-10) 06/30/24 12:57 Delta Troponin T 0.87 ABS# (0-10) 06/30/24 12:57 NT-Pro-B Natriuret Pep 278 pg/mL (0-125) H 06/30/24 10:39 Total Protein 6.6 g/dL (6.6-8.7) 06/30/24 10:39 Albumin 3.1 g/dL (3.5-5.2) L 06/30/24 10:39 Globulin 3.5 g/dL (1.3-4.6) 06/30/24 10:39 Procalcitonin 0.23 ng/mL (0-0.5) 06/30/24 10:39 Influenza A (PCR) Negative (Negative) 06/30/24 12:17 Influenza Type B (PCR) Negative (Negative) 06/30/24 12:17 RSV (PCR) Negative (Negative) 06/30/24 12:17 SARS-CoV-2 (PCR) Negative (Negative) 06/30/24 12:17 All radiology interpretation(s) finalized by discharge Discharge Plan Discharge Patient Disposition: Admitted As Inpatient Admit Provider: Gretchen Watson Clinical Impression: Acute on chronic hypoxic respiratory failure, Multifocal pneumonia, COPD exacerbation Condition: Stable Coding Level of Care Code ED Table Worker for Efrain Crain
[2024-06-30 11:38] LABS: Anion Gap 22.7 (5-19); Potassium 3.7 mmol/L (3.5-5.1)
[2024-06-30] MEDS: ipratropium-albuterol 3 mL Neb INHALATION ×2 (12:00→20:11)
[2024-06-30 12:10] LABS: ABG PCO2 26.4 mmHg (35-45); ABG PH Result 7.51 (7.35-7.45); Alveolar-Arterial Oxygen Gradi 7.7 mmHg (5-10); Arterial Blood Gas Hematocrit 42.3 % (37-47); Base Excess ABG -0.9 mmol/L (-2.0-2.0); Blood Gas Allen Test Pos; Blood Gas Operator Identificat gerca; Blood Gas Sample Site Radial, left; Blood Gas Sample Type Arterial; Carboxyhemoglobin 1.7 %THgb (0.4-20.1); HCO3 ABG 20.8 mmol/L (22-26); HGB O2 Sat 91.1 % (95-100); Ionized Calcium Level - ABG 1.2 mmol/L (1.1-1.4); Methemoglobin 0.9 % (0.4-1.5); Oxygen Device ROOM AIR; Oxygen Saturation ABG 93.5; PO2 ABG 58.4 mmHg (80.0-100.0); PO2 FiO2 Ratio Arterial Blood 278; Potassium Level - ABG 3.2 mmol/L (3.5-5.0); Total Hemoglobin 13.8 g/dL (12-16)
[2024-06-30 12:20] LABS: D Dimer 3.55 ug/mLFEU (0-0.59)
--- NOTE | 2024-06-30 12:59 | CT_ITS ---
WS: [id number] Exam: CT angio chest PE protcl [id number] Date/Time of Exam: 06/30/2024 1:25 PM Reason For Exam: Elevated D-dimer DLP: 129.[address] scans at [facility] use at least one of these dose optimization techniques: automated exposure control; mA and/or kV adjustment per patient size (includes targeted exams where dose is matched to clinical indication); or iterative reconstruction. Compared to recent CT scan of the chest performed 06/09/2024. No sign of acute PE. There are new patchy areas of pulmonary consolidation in the RIGHT middle and lower lobes as well as the lingula and the LEFT lower lobe suggesting active pneumonia. There are advanced changes of the fibrosis and honeycombing as well as bronchiectasis in both lungs. The lungs are markedly hyperinflated. The airway is patent. The thoracic aorta is normal in caliber. The central pulmonary arteries are clear. The major bronchi are patent. No pericardial effusion. No lymphadenopathy in the chest. The chest wall is intact. No destructive bone lesions. Exaggerated thoracic kyphosis. CT sections of the upper abdomen are unremarkable. CT/CT angio chest PE protcl [id number] IMPRESSION: 1. No acute PE. 2. There are patchy areas of focal pulmonary consolidation in the middle and lo wer lobes of the RIGHT lung as well as the lingula and LEFT lower lobe suggesti ng active pneumonia. 3. Advanced superimposed chronic changes of fibrosis, honeycombing and bronchie ctasis.
[2024-06-30] MEDS: SODIUM CHLORIDE 0.9% 1129.44 ML IV (13:05)
[2024-06-30 13:11] LABS: Influenza A NEGATIVE (Negative); Influenza B NEGATIVE (Negative); Respiratory Syncytial Virus Ce NEGATIVE (Negative); SARS-CoV-2 PCR NEGATIVE (Negative)
[2024-06-30] MEDS: iohexol 350 mg/mL 500 mL Btl (per mL) IV (13:42)
[2024-06-30 13:48] LABS: Troponin 5 2HR 7.87 ng/L (0-10); Troponin 5 2HR Delta 0.87 ABS# (0-10)
--- NOTE | 2024-06-30 15:26 | ECG_ITS ---
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 Measurements Intervals [place] Rate: 90 P: 79 NE: 155 QRS: 85 QRSD: 88 T: 63 QT: 332 QTc: 407 Interpretive Statements SINUS RHYTHM Compared to ECG 06/30/2024 11:35:37 Sinus tachycardia no longer present Atrial abnormality no longer present Electronically Signed On 06-30-2024 20:30:17 LEAD BURNER APPRENTICE by Ben Vora M.D. [email or web address]
[2024-06-30] MEDS: piperacillin-tazobactam 3.375 GM in sodium chloride 0.9% (plus) 50 ML IV (16:11)
[2024-06-30] MEDS: dexmedeTOMIDine 0.9 % NaCL 400 MCG/100 ML PREMIX IV (16:13)
[2024-06-30] MEDS: VANCOMYCIN ADD-Vantage 1,000 MG in 0.9% NaCl ADD-Vantage 250 ML 250 MG IV (16:14)
--- NOTE | 2024-06-30 17:23 | P.HP_ITS ---
Providers/Chief Complaint 2 Admitting Physician: Gretchen Watson MD Primary Care Provider: NOEMI QuinnP-C Chief Complaint: sob, high h/r History of Present Illness Allison Peoples is a 64 year old female with a past medical history of COPD, on nighttime oxygen, presenting to the hospital today with chief complaints of worsening shortness of breath over the past 3 days. Patient states that she had influenza infection 2 to 3 weeks ago. For the last 3 days she has been feeling poorly. He has had increased sputum expectoration. O2 sat has been 86% on room air which is low for her. She has been increasingly tachypneic and been struggling to breathe. On arrival in the emergency room she was noted to have oxygen saturation of 77%. She was tachypneic with respiratory rate in the 40s. She needed to be placed on BiPAP ventilation to ease work of breathing. ABG showing acute on chronic hypoxemic respiratory failure.CTA of the chest was negative for PE but did reveal multifocal pneumonia. She denies any fever or chills. Review of Systems 2 General: Reports: 10 or more systems reviewed and unremarkable except in HPI and below Const: Denies: fever(s), chills or body aches Eyes: Denies: change in vision, blurry vision or photophobia ENMT: Reports: hoarseness; Denies: throat pain, enlarged tonsils, odynophagia or nasal congestion Card: Denies: chest pain, palpitations, irregular heart rhythm, edema, swelling of feet/ankles, lightheadedness, pre-syncope, dyspnea on exertion or orthopnea Resp: Denies: dyspnea, productive cough, non-productive cough, wheezing, stridor, pain on inspiration, change in phlegm color, hemoptysis or chest congestion GI: Denies: abdominal pain, nausea, vomiting, hematemesis, coffee ground emesis, dysphagia, heartburn, diarrhea, constipation, GI cramping, change in stool character, hematochezia or melena : Denies: flank pain, difficulty voiding, dysuria, urinary frequency, urinary urgency, urinary hesitancy or hematuria Musc: Denies: neck pain, back pain, extremity pain, joint swelling, joint warmth or deformity Neuro: Denies: headache(s), numbness in extremities, weakness in extremities, sensory changes, difficulty walking, frequent falls, dizziness, vertigo, behavioral changes, Slurred speech present or seizure-like activity Psych: Denies: anxiety, depression, suicidal ideation or homicidal ideation Endo: Denies: polyuria, polydipsia, tired all the time, cold intolerance or hot flashes Sandeep/Lymph: Denies: easy bruising or easy bleeding Medications/Allergies Home Medications ?Medication ?Instructions ?Recorded ?Confirmed ?Last Taken ?Type aspirin 81 mg tablet,delayed 81 mg PO DAILY #90 tabs 0 08/26/20 06/30/24 06/30/24 Rx release (Adult Low Dose Aspirin) albuterol sulfate 2.5 mg/3 mL 2.5 mg (3 mL) inhalation Q4H PRN 03/08/23 06/30/24 06/30/24 Rx (0.083 %) solution for nebulization Shortness Of Breat h #300 mL albuterol sulfate 90 mcg/actuation 2 puff inhalation Q 6H PRN 10/24/23 06/30/24 06/30/24 Rx aerosol inhaler bronchospasm #8.5 grams ergocalciferol (vitamin D2) 1,250 1,250 mcg PO .monthl y #1 cap 03/13/24 06/30/24 Unknown Rx mcg (50,000 unit) capsule acetylcysteine 600 mg capsule 600 mg PO BID #60 caps 0 05/22/24 06/30/24 06/30/24 Rx fluticasone fur. 100 mcg-umeclid 1 inh inhalation MAGGIE Y #28 ea 06/26/24 06/30/24 06/30/24 Rx 62.5 mcg-vilant 25 mcg inhalat.powder (Trelegy Ellipta) Allergies Allergy/AdvReac Type Severity Reaction Status Date / Time codeine Allergy ADR-Nausea Verified 06/30/24 09:27 morphine Allergy ALGY-Hives Verified 06/30/24 09:27 PFSH Acute 2 PFSH: Medical History (Updated 06/30/24 @ 17:29 by Gretchen Watson MD) Neuralgia, post-herpetic COPD (chronic obstructive pulmonary disease) Alveolar emphysema of lung Surgical History History of hysterectomy History of cholecystectomy Family History Other CAD (coronary artery disease) COPD (chronic obstructive pulmonary disease) Cancer Denies family history of Bleeding disorder Social History Smoking and tobacco/nicotine status: current every day tobacco/nicotine user (1 ppd) cigarettes Packs smoked per day: 1 Years cigarettes smoked: 40 [ Other cigarette details: started at age 21 years] Second hand smoke exposure: Yes Alcohol intake: never Substance/Drug Use: never Adopted: No Caregiver/support person: No Lives independently: Yes Household members: spouse Marital status: Number of children: 3 service: No Current occupational status: employed Current occupation: [employer] action Do you think of yourself as: Straight/Heterosexual Current gender identity: Female Vitals/I&O/Wt Last Vital Signs Temp 97.5 F L 06/30/24 09:15 Pulse 88 06/30/24 16:35 Resp 35 H 06/30/24 15:30 BP 96/57 06/30/24 15:35 Pulse Ox 100 06/30/24 16:35 O2 Del Method BiPAP 06/30/24 16:50 FiO2 35 06/30/24 16:35 06/30/24 06/30/24 06/30/24 06:59 14:59 22:59 Intake Total 0.367 / 0.367 Balance 0.367 / 0.367 Weight last 48 hrs Weight 39.5 kg Weight 37.648 kg Physical Exam 2 Narrative: General: On BiPAP when seen. Respiratory rate of 30/min. Needed to be started on Precedex to be able to tolerate BiPAP. HEENT: PERRLA, pupils bilaterally equal and reactive, pallors not present Chest: Diffuse wheezing to auscultation bilaterally CVS: S1-S2 regular, no murmurs, no tachycardia, no gallops, no rubs Abdomen: Soft, nontender, no organomegaly, bowel sounds present Neuro: No focal deficits, no facial deformity, AO x3, power 5/5 in all limbs Extremities: No edema clubbing or lymphadenopathy Data 06/30/24 10:39 06/30/24 10:39 Other Labs: Radiology Impressions Chest X-Ray 06/30/24 09:26 IMPRESSION: 1. Pulmonary hyperinflation. No acute process. 2. Extensive scarring and honeycombing noted throughout the mid and lower bilateral lung zones. Chest CTA 06/30/24 12:59 IMPRESSION: 1. No acute PE. 2. There are patchy areas of focal pulmonary consolidation in the middle and lower lobes of the RIGHT lung as well as the lingula and LEFT lower lobe suggesting active pneumonia. 3. Advanced superimposed chronic changes of fibrosis, honeycombing and bronchiectasis. Laboratory Results WBC 12.31 10^3/uL (3.29-11.43) H 06/30/24 10:39 RBC 4.07 10^6/uL (3.85-5.65) 06/30/24 10:39 Hgb 12.40 g/dL (11.27-16.99) 06/30/24 10:39 Hct 37.4 % (36-47) 06/30/24 10:39 MCV 91.9 fl (85-98) 06/30/24 10:39 MCH 30.5 pg (27-33) 06/30/24 10:39 MCHC 33.2 g/dL (30-55) 06/30/24 10:39 RDW 14.6 % (12.1-15.1) 06/30/24 10:39 Plt Count 347 10^3/cmm (157-399) 06/30/24 10:39 MPV 9.3 fL (7.4-10.4) 06/30/24 10:39 Neut % (Auto) 83.3 % 06/30/24 10:39 Lymph % (Auto) 7.1 % 06/30/24 10:39 [place] % (Auto) 5.0 % 06/30/24 10:39 Eos % (Auto) 3.3 % 06/30/24 10:39 Baso % (Auto) 0.6 % 06/30/24 10:39 Neut # (Auto) 10.25 10^3/uL (1.8-7.7) H 06/30/24 10:39 Lymph # (Auto) 0.9 10^3/uL (0.8-4.8) 06/30/24 10:39 [place] # (Auto) 0.6 10^3/uL (0.2-0.9) 06/30/24 10:39 Eos # (Auto) 0.4 10^3/uL (0.0-0.8) 06/30/24 10:39 Baso # (Auto) 0.1 10^3/uL (0.0-0.1) 06/30/24 10:39 Nucleated RBC % (auto) 0 % 06/30/24 10:39 Nucleated RBCs # 0.0 /100WBC 06/30/24 10:39 D-Dimer 3.55 ug/mLFEU (0-0.59) H 06/30/24 10:39 Specimen Type Arterial 06/30/24 11:58 Sample Site Radial, left 06/30/24 11:58 ABG pH 7.51 (7.35-7.45) H 06/30/24 11:58 ABG pCO2 26.4 mmHg (35-45) L 06/30/24 11:58 ABG pO2 58.4 mmHg (80.0-100.0) L 06/30/24 11:58 ABG PO2/FiO2 Ratio 278 06/30/24 11:58 ABG HCO3 20.8 mmol/L (22-26) L 06/30/24 11:58 ABG O2 Saturation 93.5 06/30/24 11:58 ABG Base Excess -0.9 mmol/L (-2.0-2.0) 06/30/24 11:58 Betito Test Pos 06/30/24 11:58 A-a O2 Gradient 7.7 mmHg (5-10) 06/30/24 11:58 Hematocrit 42.3 % (37-47) 06/30/24 11:58 Hgb O2 Saturation 91.1 % (95-100) L 06/30/24 11:58 Carboxyhemoglobin 1.7 %THgb (0.4-20.1) 06/30/24 11:58 Methemoglobin 0.9 % (0.4-1.5) 06/30/24 11:58 Total Hemoglobin 13.8 g/dL (12-16) 06/30/24 11:58 Sodium 135.0 mmol/L (131-143) 06/30/24 11:58 Potassium 3.2 mmol/L (3.5-5.0) L 06/30/24 11:58 Glucose 106.0 mg/dL (70-115) 06/30/24 11:58 Ionized Calcium 1.2 mmol/L (1.1-1.4) 06/30/24 11:58 O2 Delivery Device Room air 06/30/24 11:58 FiO2 21.0 % 06/30/24 11:58 Railroad Repairer ID db 06/30/24 11:58 Sodium 135 mmol/L (136-145) L 06/30/24 10:39 Potassium 3.7 mmol/L (3.5-5.1) 06/30/24 10:39 Chloride 97 mmol/L (98-107) L 06/30/24 10:39 Carbon Dioxide 19 mmol/L (22-29) L 06/30/24 10:39 Anion Gap 22.7 (5-19) H 06/30/24 10:39 BUN 14 mg/dL (8-23) 06/30/24 10:39 Creatinine 0.7 mg/dL (0.5-0.9) 06/30/24 10:39 GFR Calculation 84.8 mL/min (90-130) L 06/30/24 10:39 Glucose 93 mg/dL (65-115) 06/30/24 10:39 Calculated Osmolality 280 mOsm/kg (285-295) L 06/30/24 10:39 Lactic Acid 2.0 mmol/L (0.5-2.2) 06/30/24 10:39 Calcium 9.2 mg/dL (8.5-10.5) 06/30/24 10:39 Total Bilirubin 0.5 mg/dL (0.15-1.2) 06/30/24 10:39 AST 12 U/L (0-32) 06/30/24 10:39 ALT < 5 U/L (0-33) 06/30/24 10:39 Alkaline Phosphatase 104 U/L (35-105) 06/30/24 10:39 Troponin T Baseline 7 ng/L (0-10) 06/30/24 10:39 Troponin T 120 Minute 7.87 ng/L (0-10) 06/30/24 12:57 Delta Troponin T 0.87 ABS# (0-10) 06/30/24 12:57 NT-Pro-B Natriuret Pep 278 pg/mL (0-125) H 06/30/24 10:39 Total Protein 6.6 g/dL (6.6-8.7) 06/30/24 10:39 Albumin 3.1 g/dL (3.5-5.2) L 06/30/24 10:39 Globulin 3.5 g/dL (1.3-4.6) 06/30/24 10:39 Procalcitonin 0.23 ng/mL (0-0.5) 06/30/24 10:39 Influenza A (PCR) Negative (Negative) 06/30/24 12:17 Influenza Type B (PCR) Negative (Negative) 06/30/24 12:17 RSV (PCR) Negative (Negative) 06/30/24 12:17 SARS-CoV-2 (PCR) Negative (Negative) 06/30/24 12:17 A&P Assessment and plan (1) Multifocal pneumonia: (2) COPD exacerbation: (3) Bronchiectasis: (4) Acute on chronic hypoxic respiratory failure: Plan 64-year-old lady with a past medical history of COPD and bronchiectasis, history of Pseudomonas and Acinetobacter pneumonia, presenting to the hospital with worsening shortness of breath for the past 3 days with CTA of the chest showing multifocal pneumonia. Admitted to ICU in view of new BiPAP requirement, high risk of progression to mechanical ventilation. Upon arrival patient saturation was 77%, ABG with PaO2 of 58 on room air. She was tachypneic with respiratory rate in the 40s. She was placed on BiPAP, she appears to be more comfortable from a respiratory perspective when seen in the ICU. Needed to start Precedex to be able to tolerate the BiPAP as she reports feeling claustrophobic with the BiPAP on. However agreeable to keeping it on currently. Start empiric antibiotic coverage with cefepime and azithromycin. Check MRSA nares. If positive will need additional vancomycin coverage. Respiratory viral panel today negative for COVID RSV and influenza. Check sputum culture and Gram stain. Prior history of Pseudomonas and Acinetobacter pneumonia. Patient has received first dose of piperacillin/tazobactam and vancomycin in the emergency room. Check blood cultures now as not previously drawn. Start methylprednisolone 40 mg IV every 8 hours for COPD exacerbation Scheduled nebulization with DuoNeb and budesonide. DVT prophylaxis: Lovenox PUD prophylaxis: Protonix 40 mg daily Full code PDMP PDMP Reviewed: Not Reviewed Attestations 2 Medical Necessity Statement*: Greater than 2 midnight admission is anticipated Critical Care Time: The high probability of a clinically significant, sudden or life threatening deterioration of the patient's [respiratory, infectious] system(s) required my full and direct attention, intervention and personal management. The critical care time is as shown. This time is in addition to time spent performing any reported procedures but includes the following: [x] Data and vital sign review and interpretation [x] Patient assessment, examination and intervention [x] Documentation [x] Medication orders and management Critical Care Time (min): 50 Coding Level of Care Code Critical Care >/= 30 minutes Diagnoses Multifocal pneumonia J18.9 COPD exacerbation J44.1 Bronchiectasis J47.9 Acute on chronic hypoxic respiratory failure J96.21
[2024-06-30] MEDS: methylPREDNISolone sod succ 40 mg/mL INJ IVP (18:11)
[2024-06-30] MEDS: enoxaparin 40 mg/0.4 mL Syringe SUBCUT (18:11)
[2024-06-30 19:00] LABS: Troponin 5 6HR 6.51 ng/L (0-10); Troponin 5 6HR Delta -0.49 ng/L (0-12)
[2024-06-30] MEDS: budesonide 0.5 mg/2 mL Neb INHALATION (20:11)
[2024-06-30] MEDS: norepinephrine 4 MG/250 ML BAG 7.5 MG IV (20:25)
[2024-06-30] MEDS: cefepime 2,000 mg SDV 2000 MG IVP (23:57)
[2024-07-01] VITALS (229 sets, daily range): BP systolic 72–126; BP diastolic 40–70; PULSE 49–98; RESP 16–33; TEMP 36.6–36.9; O2SAT 90–100
[2024-07-01] MEDS: methylPREDNISolone sod succ 40 mg/mL INJ IVP ×3 (02:12→17:55)
[2024-07-01 04:09] LABS: Basophils % 0.3 %; Hematocrit 29.1 % (36-47); Lymphocytes # 0.7 10^3/uL (0.8-4.8); Lymphocytes % 7.3 %; Mean Corpuscular HGB Conc 33.3 g/dL (30-55); Mean Corpuscular Hemoglobin 30.8 pg (27-33); Mean Corpuscular Volume 92.4 fl (85-98); Mean Platelet Volume 9.5 fL (7.4-10.4); Monocytes # 0.2 10^3/uL (0.2-0.9); Monocytes % 2.4 %; Neutrophils # 8.41 10^3/uL (1.8-7.7); Neutrophils % 89.4 %; Nucleated Red Blood Cells % 0 %; Platelet Count 312 10^3/cmm (157-399); Red Blood Count 3.15 10^6/uL (3.85-5.65); Red Cell Distribution Width 14.5 % (12.1-15.1); White Blood Count 9.42 10^3/uL (3.29-11.43)
[2024-07-01 04:30] LABS: ABG PCO2 32.6 mmHg (35-45); ABG PH Result 7.41 (7.35-7.45); Arterial Blood Gas Hematocrit 32.3 % (37-47); Base Excess ABG -3.5 mmol/L (-2.0-2.0); Blood Gas Sample Type Arterial; HCO3 ABG 20.5 mmol/L (22-26); PO2 ABG 90.5 mmHg (80.0-100.0)
[2024-07-01 04:31] LABS: Blood Gas Operator Identificat ED; Blood Gas Sample Site Brachial, left; Oxygen Device NC; PO2 FiO2 Ratio Arterial Blood 323
[2024-07-01 04:36] LABS: Alanine Aminotransferase < 5 U/L (0-33); Albumin Level 2.3 g/dL (3.5-5.2); Alkaline Phosphatase 75 U/L (35-105); Anion Gap 16.1 (5-19); Aspartate Amino Transferase 7 U/L (0-32); Blood Urea Nitrogen 15 mg/dL (8-23); Calcium 8.2 mg/dL (8.5-10.5); Carbon Dioxide 20 mmol/L (22-29); Chloride 105 mmol/L (98-107); Creatinine Clr Calc Pharmacy 72.7458; Globulin 3.6 g/dL (1.3-4.6); Glucose 140 mg/dL (65-115); Osmolality Calculated 289 mOsm/kg (285-295); Potassium 3.1 mmol/L (3.5-5.1); Sodium 138 mmol/L (136-145); Total Bilirubin 0.2 mg/dL (0.15-1.2); Total Protein 5.9 g/dL (6.6-8.7)
[2024-07-01] MEDS: cefepime 2,000 mg SDV 2000 MG IVP ×2 (07:43→17:56)
[2024-07-01] MEDS: aspirin 81 mg EC Tablet PO (07:44)
[2024-07-01] MEDS: pantoprazole DR 40 mg Tablet PO (07:44)
[2024-07-01] MEDS: azithromycin 250 mg Tablet 500 MG PO (07:44)
[2024-07-01] MEDS: ipratropium-albuterol 3 mL Neb INHALATION ×3 (08:14→19:52)
[2024-07-01] MEDS: budesonide 0.5 mg/2 mL Neb INHALATION ×2 (08:14→19:52)
[2024-07-01] MEDS: enoxaparin 40 mg/0.4 mL Syringe SUBCUT (17:56)
--- NOTE | 2024-07-01 19:19 | P.PN_ITS ---
Subjective 2 Subjective: Patient is feeling better today. She remains off BiPAP.Still tachypneic in conversation, unable to complete full sentences respiratory rate up to 26/min. Scattered wheezing to auscultation. Overnight she initially was on low-dose Levophed as MAP had dropped to 50. Patient states her blood pressure typically constitutionally remains between 90-1 10 systolic. Her BMI is only 13.5. She was asymptomatic therefore suspect this may be constitutional for her. She is off Precedex this morning. Vitals/I&O/Wt Last Vital Signs Temp 97.9 F 07/01/24 15:45 Pulse 82 07/01/24 17:10 Resp 23 H 07/01/24 17:10 BP 81/41 07/01/24 17:10 Pulse Ox 99 07/01/24 17:10 O2 Del Method Nasal Cannula 07/01/24 13:55 O2 Flow Rate 2 07/01/24 13:55 FiO2 30 06/30/24 18:07 07/01/24 07/01/24 07/01/24 06:59 14:59 22:59 Intake Total 480 / 1921.224 531.25 / 531.25 Output Total 300 / 300 400 / 400 Balance 180 / 1621.224 531.25 / 531.25 -400 / 131.25 Weight last 48 hrs Weight 38 kg Weight 39.5 kg Weight 37.648 kg Physical Exam 2 Narrative: General: Awake alert oriented x 3 however still has dyspnea in conversation HEENT: PERRLA, pupils bilaterally equal and reactive, pallors not present Chest: Diffuse wheezing to auscultation bilaterally CVS: S1-S2 regular, no murmurs, no tachycardia, no gallops, no rubs Abdomen: Soft, nontender, no organomegaly, bowel sounds present Neuro: No focal deficits, no facial deformity, AO x3, power 5/5 in all limbs Extremities: No edema clubbing or lymphadenopathy Data 07/01/24 03:12 07/01/24 03:12 Micro: Microbiology 06/30/24 19:52 Blood Culture - Preliminary Blood SPECIMEN COLLECTED 06/30/24 19:44 Blood Culture - Preliminary Blood SPECIMEN COLLECTED A&P Assessment and plan (1) Multifocal pneumonia: (2) COPD exacerbation: (3) Bronchiectasis: (4) Acute on chronic hypoxic respiratory failure: Plan 64-year-old lady with a past medical history of COPD and bronchiectasis, history of Pseudomonas and Acinetobacter pneumonia, presenting to the hospital with worsening shortness of breath for the past 3 days with CTA of the chest showing multifocal pneumonia. Admitted to ICU in view of new BiPAP requirement, high risk of progression to mechanical ventilation. Upon arrival patient saturation was 77%, ABG with PaO2 of 58 on room air. She was tachypneic with respiratory rate in the 40s. She was placed on BiPAP, she appears to be more comfortable from a respiratory perspective when seen in the ICU. Needed to start Precedex to be able to tolerate the BiPAP as she reports feeling claustrophobic with the BiPAP on. However agreeable to keeping it on currently. Start empiric antibiotic coverage with cefepime and azithromycin. Check MRSA nares. If positive will need additional vancomycin coverage. Respiratory viral panel today negative for COVID RSV and influenza. Check sputum culture and Gram stain. Prior history of Pseudomonas and Acinetobacter pneumonia. Patient has received first dose of piperacillin/tazobactam and vancomycin in the emergency room. Check blood cultures now as not previously drawn. Start methylprednisolone 40 mg IV every 8 hours for COPD exacerbation Scheduled nebulization with DuoNeb and budesonide. DVT prophylaxis: Lovenox PUD prophylaxis: Protonix 40 mg daily Full code July 01, 2024 Patient is doing slightly better today. Not requiring BiPAP. Off Precedex. Overnight needed Levophed transiently, I suspect her labs may be constitutionally low as her BMI is only 13. She feels asymptomatic. Denies any dizziness or other symptoms associated with the low blood pressure. At the time of this assessment her MAP is at 68. She feels better. Still with diffuse wheezing and unable to complete full sentences. Will continue IV antibiotics, scheduled nebulization and IV steroids today. She may transfer out of ICU to [facility] [place]. PDMP PDMP Reviewed: Not Reviewed Attestations 2 Medical Necessity Statement*: Transfer from ICU to [facility] [place]. Needs treatment for pneumonia, iv steroids and scheduled nebs Coding Level of Care Code Acute Code for Chg Fwd High MDM includes number and complexity of problems actively addressed during encounter, amount and/or complexity of data reviewed/ordered and described risk of complication, morbidity or mortality of management as documented Diagnoses Multifocal pneumonia J18.9 COPD exacerbation J44.1 Bronchiectasis J47.9 Acute on chronic hypoxic respiratory failure J96.21
[2024-07-02] VITALS (39 sets, daily range): BP systolic 87–106; BP diastolic 43–60; PULSE 62–90; RESP 13–27; TEMP 35.9–36.6; O2SAT 78–100
[2024-07-02] MEDS: methylPREDNISolone sod succ 40 mg/mL INJ IVP ×2 (00:57→08:37)
--- NOTE | 2024-07-02 01:38 | PC.NURSE ---
Patient arrived from ICU into CSU room 105 at 0138.
[2024-07-02] MEDS: ipratropium-albuterol 3 mL Neb INHALATION ×2 (02:50→07:51)
[2024-07-02] MEDS: budesonide 0.5 mg/2 mL Neb INHALATION (07:51)
[2024-07-02] MEDS: pantoprazole DR 40 mg Tablet PO (08:37)
[2024-07-02] MEDS: azithromycin 250 mg Tablet 500 MG PO (08:37)
[2024-07-02] MEDS: cefepime 2,000 mg SDV 2000 MG IVP (08:37)
[2024-07-02] MEDS: aspirin 81 mg EC Tablet PO (08:37)
--- NOTE | 2024-07-02 11:17 | PC.NURSE ---
This person could not obtain d/c appointment due to clinic being closed for inclement weather.
--- NOTE | 2024-07-02 11:30 | P.DS_ITS ---
Discharge Providers Date of Admission: 06/30/24 15:34 Date of Discharge: July 02, 2024 Attending Provider at Admission: Gretchen Watson MD Attending Provider at Discharge: Gretchen Watson MD Primary Care Provider: REAL Quinn Diagnoses at Discharge Discharge Diagnosis (1) Multifocal pneumonia: Status: Acute (2) COPD exacerbation: Status: Acute (3) Bronchiectasis: Status: Acute (4) Acute on chronic hypoxic respiratory failure: Status: Acute Reason for Visit Reason for Visit: sob, high h/r Brief History: 64-year-old lady with a past medical his tory of COPD and bronchiectasis, history of Pseudomonas and Acinetobacter pneumonia, presenting to the hospital with worsening shortness of breath for the past 3 days with CTA of the chest showing multifocal pneumonia.Admitted to ICU in view of new BiPAP requirement, high risk of progression to mechanical ventilation. Upon arrival patient saturation was 77%, ABG with PaO2 of 58 on room air. She was tachypneic with respiratory rate in the 40s. She was diagnosed with multifocal pneumonia and also with acute on chronic COPD exacerbation. Typically patient uses 2 L/min supplemental O2 at nighttime and intermittently during the day. Patient states her oxygen use during daytime is intermittent as she is not allowed to carry oxygen at work. She required to be on BiPAP on the day of admission. Over the next day she started showing improvement. Was able to be taken off BiPAP. She received treatment with IV steroids, IV antibiotics, scheduled nebulization and is much improved today. Oxygen requirement is down to 2 L/min. A new home O2 evaluation was completed prior to discharge . She is recommended to recuperate at home over the next week as she will be unable to carry oxygen into her workplace for continuous use. Patient is discharged today in improved condition. She will continue her Trelegy inhaler at home and use albuterol via nebulizer as needed additionally Physical Exam Narrative: General: No acute distress, AO x3 HEENT: PERRLA, pupils bilaterally equal and reactive, pallors not present Chest: Normal vesicular breath sounds, no added sounds, equal good air entry bilaterally CVS: S1-S2 regular, no murmurs, no tachycardia, no gallops, no rubs Abdomen: Soft, nontender, no organomegaly, bowel sounds present Neuro: No focal deficits, no facial deformity, AO x3, power 5/5 in all limbs Discharge Data Studies Completed and Pending Completed Studies During Hospitalization Category Date Time Status CT angio chest PE protcl [id number] Stat Cat Scan 06/30/24 12:59 Completed XR chest 1V portable [id number] Urgent Exams 06/30/24 09:26 Completed Pending at discharge Category Date Time Status Blood Culture Stat Lab 06/30/24 19:52 Results MRSA PCR OZH (swab) Routine Lab 06/30/24 17:16 Uncollected Sputum Culture and Gram Stain Routine Lab 07/01/24 14:10 Results Radiology Impressions Chest X-Ray 06/30/24 09:26 IMPRESSION: 1. Pulmonary hyperinflation. No acute process. 2. Extensive scarring and honeycombing noted throughout the mid and lower bilateral lung zones. Chest CTA 06/30/24 12:59 IMPRESSION: 1. No acute PE. 2. There are patchy areas of focal pulmonary consolidation in the middle and lower lobes of the RIGHT lung as well as the lingula and LEFT lower lobe suggesting active pneumonia. 3. Advanced superimposed chronic changes of fibrosis, honeycombing and bronchiectasis. Laboratory Results WBC 9.42 10^3/uL (3.29-11.43) 07/01/24 03:12 RBC 3.15 10^6/uL (3.85-5.65) L 07/01/24 03:12 Hgb 9.70 g/dL (11.27-16.99) L 07/01/24 03:12 Hct 29.1 % (36-47) L 07/01/24 03:12 MCV 92.4 fl (85-98) 07/01/24 03:12 MCH 30.8 pg (27-33) 07/01/24 03:12 MCHC 33.3 g/dL (30-55) 07/01/24 03:12 RDW 14.5 % (12.1-15.1) 07/01/24 03:12 Plt Count 312 10^3/cmm (157-399) 07/01/24 03:12 MPV 9.5 fL (7.4-10.4) 07/01/24 03:12 Neut % (Auto) 89.4 % 07/01/24 03:12 Lymph % (Auto) 7.3 % 07/01/24 03:12 [place] % (Auto) 2.4 % 07/01/24 03:12 Eos % (Auto) 0.0 % 07/01/24 03:12 Baso % (Auto) 0.3 % 07/01/24 03:12 Neut # (Auto) 8.41 10^3/uL (1.8-7.7) H 07/01/24 03:12 Lymph # (Auto) 0.7 10^3/uL (0.8-4.8) L 07/01/24 03:12 [place] # (Auto) 0.2 10^3/uL (0.2-0.9) 07/01/24 03:12 Eos # (Auto) 0.0 10^3/uL (0.0-0.8) 07/01/24 03:12 Baso # (Auto) 0.0 10^3/uL (0.0-0.1) 07/01/24 03:12 Nucleated RBC % (auto) 0 % 07/01/24 03:12 Nucleated RBCs # 0.0 /100WBC 07/01/24 03:12 D-Dimer 3.55 ug/mLFEU (0-0.59) H 06/30/24 10:39 Specimen Type Arterial 07/01/24 04:20 Sample Site Brachial, left 07/01/24 04:20 ABG pH 7.41 (7.35-7.45) 07/01/24 04:20 ABG pCO2 32.6 mmHg (35-45) L 07/01/24 04:20 ABG pO2 90.5 mmHg (80.0-100.0) 07/01/24 04:20 ABG PO2/FiO2 Ratio 323 07/01/24 04:20 ABG HCO3 20.5 mmol/L (22-26) L 07/01/24 04:20 ABG O2 Saturation 93.5 06/30/24 11:58 ABG Base Excess -3.5 mmol/L (-2.0-2.0) L 07/01/24 04:20 Betito Test N/a 07/01/24 04:20 A-a O2 Gradient 7.7 mmHg (5-10) 06/30/24 11:58 Hematocrit 32.3 % (37-47) L 07/01/24 04:20 Hgb O2 Saturation 91.1 % (95-100) L 06/30/24 11:58 Carboxyhemoglobin 1.7 %THgb (0.4-20.1) 06/30/24 11:58 Methemoglobin 0.9 % (0.4-1.5) 06/30/24 11:58 Total Hemoglobin 13.8 g/dL (12-16) 06/30/24 11:58 Sodium 135.0 mmol/L (131-143) 06/30/24 11:58 Potassium 3.2 mmol/L (3.5-5.0) L 06/30/24 11:58 Glucose 106.0 mg/dL (70-115) 06/30/24 11:58 Ionized Calcium 1.2 mmol/L (1.1-1.4) 06/30/24 11:58 O2 Delivery Device Nc 07/01/24 04:20 O2 Liters/Min 2.0 % 07/01/24 04:20 FiO2 28.0 % 07/01/24 04:20 Public Stenographer ID Ed 07/01/24 04:20 Sodium 138 mmol/L (136-145) 07/01/24 03:12 Potassium 3.1 mmol/L (3.5-5.1) L 07/01/24 03:12 Chloride 105 mmol/L (98-107) 07/01/24 03:12 Carbon Dioxide 20 mmol/L (22-29) L 07/01/24 03:12 Anion Gap 16.1 (5-19) 07/01/24 03:12 BUN 15 mg/dL (8-23) 07/01/24 03:12 Creatinine 0.5 mg/dL (0.5-0.9) 07/01/24 03:12 GFR Calculation 125.0 mL/min (90-130) 07/01/24 03:12 Glucose 140 mg/dL (65-115) H 07/01/24 03:12 Calculated Osmolality 289 mOsm/kg (285-295) 07/01/24 03:12 Lactic Acid 2.0 mmol/L (0.5-2.2) 06/30/24 10:39 Calcium 8.2 mg/dL (8.5-10.5) L 07/01/24 03:12 Total Bilirubin 0.2 mg/dL (0.15-1.2) 07/01/24 03:12 AST 7 U/L (0-32) 07/01/24 03:12 ALT < 5 U/L (0-33) 07/01/24 03:12 Alkaline Phosphatase 75 U/L (35-105) 07/01/24 03:12 Troponin T Baseline 7 ng/L (0-10) 06/30/24 10:39 Troponin T 120 Minute 7.87 ng/L (0-10) 06/30/24 12:57 Delta Troponin T 0.87 ABS# (0-10) 06/30/24 12:57 Troponin T Hi Sens 6Hr 6.51 ng/L (0-10) 06/30/24 17:37 Troponin T Hi Sens 6Hr Delta -0.49 ng/L (0-12) L 06/30/24 17:37 NT-Pro-B Natriuret Pep 278 pg/mL (0-125) H 06/30/24 10:39 Total Protein 5.9 g/dL (6.6-8.7) L 07/01/24 03:12 Albumin 2.3 g/dL (3.5-5.2) L 07/01/24 03:12 Globulin 3.6 g/dL (1.3-4.6) 07/01/24 03:12 Procalcitonin 0.23 ng/mL (0-0.5) 06/30/24 10:39 Influenza A (PCR) Negative (Negative) 06/30/24 12:17 Influenza Type B (PCR) Negative (Negative) 06/30/24 12:17 RSV (PCR) Negative (Negative) 06/30/24 12:17 SARS-CoV-2 (PCR) Negative (Negative) 06/30/24 12:17 Vitals Last Vital Signs Temp 97.8 F 07/02/24 11:03 Pulse 84 07/02/24 11:11 Resp 18 07/02/24 11:11 BP 95/52 07/02/24 11:11 Pulse Ox 100 07/02/24 11:11 O2 Del Method Nasal Cannula 07/02/24 11:03 O2 Flow Rate 2 07/02/24 07:53 FiO2 30 06/30/24 18:07 Discharge Plan Discharge Patient Disposition: Home Condition: Stable Prescriptions: New amoxicillin-pot clavulanate 875-125 mg tablet 1 tab PO BID 3 Days Qty: 6 0RF levofloxacin 500 mg tablet 500 mg PO DAILY 3 Days Qty: 3 0RF prednisone 10 mg tablet See Taper PO BID Qty: 42 0RF Taper: predniSONE 60-10 60 mg Daily for 2 Days and 0 Hour 50 mg Daily for 2 Days and 0 Hour 40 mg Daily for 2 Days and 0 Hour 30 mg Daily for 2 Days and 0 Hour 20 mg Daily for 2 Days and 0 Hour 10 mg Daily for 2 Days and 0 Hour pantoprazole 40 mg Tablet,Delayed Release (Dr/Ec) 40 mg PO DAILY 30 Days Qty: 30 0RF Continued acetylcysteine 600 mg capsule 600 mg PO BID Qty: 60 2RF Trelegy Ellipta 100-62.5-25 mcg blister with device 1 inh inhalation DAILY Qty: 28 5RF albuterol sulfate 90 mcg/actuation HFA aerosol inhaler 2 puff inhalation Q6H PRN (Reason: bronchospasm) Qty: 8.5 5RF albuterol sulfate 2.5 mg /3 mL (0.083 %) solution for nebulization 2.5 mg inhalation Q4H PRN (Reason: Shortness Of Breath) Qty: 300 5RF ergocalciferol (vitamin D2) 1,250 mcg (50,000 unit) capsule 1,250 mcg PO .monthly Qty: 1 5RF aspirin [Adult Low Dose Aspirin] 81 mg tablet,delayed release (DR/EC) 81 mg PO DAILY Qty: 90 0RF Discharge Orders: Discharge Order (Routine); Ordered 07/02/24 Ordered By: Gretchen Watson Referrals: Irina Caruso, [employer] [Primary Care Provider] - 1 week (We have notified your physician's clinic of the need for a follow-up appointment to be scheduled. If you have not heard from them within the next 2 business days, please call them directly. ) Discharge Diet: Usual diet Discharge Activity: Resume usual activity Patient Instructions: Prednisone (By mouth), Amoxicillin (By mouth) (Amoxicot, Amoxil, Amoxil Pediatric, Trimox,..., Levofloxacin (By mouth) (Levaquin, Levaqu in Leva-leela), Pantoprazole (By mouth) (Protonix), Bronchiectasis (DC), COPD Stoplight, Opioid Safety, Pneumonia Stoplight Discharge Attestations Time Spent in Discharge Care*: greater than 30 min Quality Metrics Clinical Quality Measures [ No reported AMI, CVA or VTE this stay] Coding Level of Care Code Acute Code for Chg Fwd Diagnoses Multifocal pneumonia J18.9 COPD exacerbation J44.1 Bronchiectasis J47.9 Acute on chronic hypoxic respiratory failure J96.21
--- NOTE | 2024-07-02 12:16 | PC.NURSE ---
Discharge Note Patient discharged to home via POV accompanied by family. 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 Mobile pharmacy medications and/or prescriptions provided. Belongings/home medications returned.
== END 2024-07-02 12:16 | disposition home or self-care (01) | DRG 193 ==
LOC: ER 11:36 → ICU 15:34 → CSU 07-02 01:01
PROVIDERS: Physician Assistant; Admitting Provider Student in an Organized Health Care Education/Training Program; Emergency Provider Family Medicine; PCP Nurse Practitioner; Visit Provider Student in an Organized Health Care Education/Training Program
DX: J18.9 Pneumonia, unspecified organism (principal); J96.21 Acute and chronic respiratory failure with hypoxia; J44.0 Chronic obstructive pulmonary disease with (acute) lower respiratory infection; J44.1 Chronic obstructive pulmonary disease with (acute) exacerbation; J43.8 Other emphysema; J47.9 Bronchiectasis, uncomplicated; Z99.81 Dependence on supplemental oxygen; F17.210 Nicotine dependence, cigarettes, uncomplicated; Z79.82 Long term (current) use of aspirin
CPT/HCPCS: 36415; 36600; 71045; 71275; 80051; 80053; 82330; 82803; 82805; 83605; 83880; 84145; 84484; 85025; 85378; 87040; 87070; 87077; 87186; 87205; 87637; 93005; 94640; 94660; 94664; 94760; 96365; 96372; 99285; J0692; J1650; J2543; J2919; J3370; J7030; J7050; J7626; Q0144

== ENCOUNTER 2024-07-16 09:05 | Outpatient (CLI) | payer BC, SELFPAY ==
[2024-07-16 09:22] VITALS: PULSE 101; RESP 22; O2SAT 93
[2024-07-16] MEDS: albuterol 2.5 mg/3 mL Neb INHALATION (09:22)
== END 2024-07-16 09:06 | disposition home or self-care (01) ==
LOC: RT 09:07
PROVIDERS: PCP Nurse Practitioner; Visit Provider Nurse Practitioner
DX: J44.9 Chronic obstructive pulmonary disease, unspecified (principal); R91.8 Other nonspecific abnormal finding of lung field
CPT/HCPCS: 94060; 94726; 94729

== ENCOUNTER 2024-07-27 00:11 | Emergency (ER) | payer BC, SELFPAY ==
[2024-07-27 00:34] VITALS: BP 84/53; PULSE 84; RESP 20; TEMP 36.6; O2SAT 96; BMI 16.1
--- NOTE | 2024-07-27 00:42 | ECG_ITS ---
[facility] 2024-[facility]27 Pat Name: Allison Peoples Department: Room: Gender: Female [employer]: : 1960 Requested By: Jose Agrawal Order Number: [id number] Reading MD: MARY KATE ORTEGA Measurements Intervals [place] Rate: 80 P: 84 WI: 152 QRS: 85 QRSD: 91 T: 77 QT: 357 QTc: 412 Interpretive Statements SINUS RHYTHM RIGHT ATRIAL ENLARGEMENT [0.3mV P-WAVE] Compared to ECG 06/30/2024 14:56:01 Atrial abnormality now present Electronically Signed On 07-28-2024 18:09:17 CDT by MARY KATE ORTEGA [email or web address]
[2024-07-27 01:02] VITALS: BP 84/53; PULSE 83; RESP 20; O2SAT 94
[2024-07-27 01:23] LABS: Basophils % 0.3 %; Hematocrit 33.4 % (36-47); Lymphocytes # 1.4 10^3/uL (0.8-4.8); Lymphocytes % 14.8 %; Mean Corpuscular Hemoglobin 29.6 pg (27-33); Mean Corpuscular Volume 92.3 fl (85-98); Monocytes # 0.5 10^3/uL (0.2-0.9); Monocytes % 5.8 %; Neutrophils # 7.28 10^3/uL (1.8-7.7); Neutrophils % 78.3 %; Nucleated Red Blood Cells % 0 %; Platelet Count 233 10^3/cmm (157-399); Red Blood Count 3.62 10^6/uL (3.85-5.65); Red Cell Distribution Width 14.9 % (12.1-15.1)
[2024-07-27 01:38] LABS: Troponin(5th) Baseline 8 ng/L (0-10)
[2024-07-27 01:39] LABS: Blood Urea Nitrogen 16 mg/dL (8-23); Calcium 8.5 mg/dL (8.5-10.5); Carbon Dioxide 18 mmol/L (22-29); Chloride 100 mmol/L (98-107); Creatinine Clr Calc Pharmacy 59.6687; Glomerular Filtration Rate 84.8 mL/min (90-130); Glucose 92 mg/dL (65-115); Osmolality Calculated 277 mOsm/kg (285-295); Sodium 133 mmol/L (136-145)
[2024-07-27 01:44] LABS: Anion Gap 18.8 (5-19); Potassium 3.8 mmol/L (3.5-5.1)
--- NOTE | 2024-07-27 01:59 | ED_ITS ---
HPI - Syncope 2 General: Chief Complaint: Syncope Stated Complaint: SYNCOPE Time Seen by Provider: 07/27/24 00:37 History of Present Illness: Patient presents for evaluation of syncope that occurred today. Reports suddenly feeling hot while sitting on the couch, called out that she was going to pass out, and then lost consciousness. No bowel or bladder incontinence reported. Brief post-event arm movement was observed by family member, but no witnessed generalized seizure activity. Patient was unconscious for approximately 2 minutes. Upon regaining consciousness, patient had recall of events leading up to the syncope. Past Medical History: Notable for chronically low blood pressure, typically running around 90/50. Patient had one previous syncopal episode approximately 1.5-2 years ago, which was evaluated but no specific cause was identified. Recent History: Patient was seen in clinic approximately 2 weeks ago for respiratory issues. Medication changes included discontinuation of Trelegy with transition to a new medication (specific medication not mentioned). Social History: Current smoker. Poor oral intake noted, with family reporting patient 'doesn't eat much' and stays cold frequently due to low body mass. Related Data Previous Rx's ?Medication ?Instructions ?Recorded aspirin 81 mg tablet,delayed 81 mg PO DAILY #90 tabs 0 08/26/20 release (Adult Low Dose Aspirin) albuterol sulfate 2.5 mg/3 mL 2.5 mg (3 mL) inhalation Q4H PRN 03/08/23 (0.083 %) solution for nebulization Shortness Of Breat h #300 mL albuterol sulfate 90 mcg/actuation 2 puff inhalation Q 6H PRN 10/24/23 aerosol inhaler bronchospasm #8.5 grams ergocalciferol (vitamin D2) 1,250 1,250 mcg PO .monthl y #1 cap 03/13/24 mcg (50,000 unit) capsule acetylcysteine 600 mg capsule 600 mg PO BID #60 caps 0 05/22/24 prednisone 10 mg tablet See Taper PO BID #42 tabs budesonide 160 mcg-glycopyr 9 2 inh inhalation BID #10 .7 grams 07/09/24 mcg-formot 4.8 mcg/actuation HFA inhaler (Breztri Aerosphere) pantoprazole 20 mg tablet,delayed 20 mg PO DAILY 30 da ys #30 tabs 07/09/24 release Allergies Allergy/AdvReac Type Severity Reaction Status Date / Time codeine Allergy ADR-Nausea Verified 07/09/24 15:27 morphine Allergy ALGY-Hives Verified 07/09/24 15:27 PFSH ED 2 PFSH: Medical History Neuralgia, post-herpetic COPD (chronic obstructive pulmonary disease) Alveolar emphysema of lung Surgical History History of hysterectomy History of cholecystectomy Family History Other CAD (coronary artery disease) COPD (chronic obstructive pulmonary disease) Cancer Denies family history of Bleeding disorder Social History Smoking and tobacco/nicotine status: current every day tobacco/nicotine user (1 ppd) cigarettes Packs smoked per day: 1 Years cigarettes smoked: 40 [ Other cigarette details: started at age 21 years] Second hand smoke exposure: Yes Alcohol intake: never Substance/Drug Use: never Adopted: No Caregiver/support person: No Lives independently: Yes Household members: spouse Marital status: Number of children: 3 service: No Current occupational status: employed Current occupation: [employer] action Do you think of yourself as: Straight/Heterosexual Current gender identity: Female Physical Exam 2 Const: COMMON NORMALS: no acute distress, patient oriented x3, alert and well nourished HENMT: COMMON NORMALS: normocephalic HEAD & SCALP: normocephalic Eye: COMMON NORMALS: Equal, round and reactive pupils present, EOMs intact bilaterally and conjunctivae normal CONJUNCTIVA: Yes conjunctivae normal P UPIL: Yes Equal, round and reactive pupils present Neck/C-Spine: COMMON NORMALS: full ROM, no lymphadenopathy, supple, no meningeal signs, no JVD and Thyroid normal THYROID: Thyroid normal Chest: COMMONS NORMALS: normal inspection of the chest and normal palpation of entire chest wall Resp: COMMON NORMALS: normal respiratory effort, No retractions, No use of accessory muscles, clear to auscultation bilaterally and percussion normal A USCULTATION: clear to auscultation bilaterally PERCUSSION: percussion normal Cardio: COMMON NORMALS: no JVD GI: COMMON NORMALS: Normal to inspection, nondistended, normoactive bowel sounds present, Soft to palpation, non-tender, No hepatosplenomegaly present, no masses and no bruits PALPATION: Yes Soft to palpation and Yes No hepatosplenomegaly present : COMMON NORMALS: Yes no CVA tenderness BLADDER/KIDNEY EXAM: Yes no CVA tenderness Back/Pelvis: COMMON NORMALS: no CVA tenderness Extremity: COMMON NORMALS: normal to inspection, full ROM, capillary refill normal, no joint enlargement, no clubbing, cyanosis or edema, no calf tenderness and no pedal edema Neuro: COMMON NORMALS: patient oriented x3 SENSORIUM/ORIENTATION: Yes alert MENINGEAL SIGNS: Yes no meningeal signs Skin: COMMON NORMALS: no rashes or lesions noted, turgor normal and no jaundice GENERAL SKIN EXAM: no rashes or lesions noted and turgor normal Course 2 Vital Signs: Vital signs: Vital Signs Temperature 97.9 F 07/27/24 00:34 Pulse Rate 83 07/27/24 01:02 Respiratory Rate 20 H 07/27/24 01:02 Blood Pressure 84/53 07/27/24 01:02 Pulse Oximetry 94 07/27/24 01:02 Oxygen Delivery Me thod Room Air 07/27/24 01:02 MDM - Syncope Medical Decision Making 1. Vasovagal Syncope, likely due to chronic hypotension: - Most likely etiology is baseline low blood pressure with acute drop precipitating syncope - No evidence of cardiac arrhythmia or other acute pathology on workup - Safe for discharge with close follow-up 2. Chronic Hypotension: - Advised to increase fluid intake and frequency of meals - Recommended liberalization of sodium intake - Discussed possibility of medication (likely fludrocortisone) if episodes become more frequent - Currently not recommending medication given infrequent episodes and side effect profile 3. Poor Nutrition/Low Body Mass: - Encouraged increased caloric intake - Recommended frequent small meals 4. Tobacco Use: - Advised smoking cessation - Acknowledged difficulty with cessation when others in household smoke Follow-up: - Follow up with primary care physician - Return to ED if syncope recurs - Monitor blood pressure at home if possible Differential Diagnosis Likely syncope due to orthostatic hypotension, vasovagal syncope, complete atrioventricular block, pulmonary embolism and dehydration Lab Data 07/27/24 01:15 07/27/24 01:15 Laboratory Results WBC 9.30 10^3/uL (3.29-11.43) 07/27/24 01:15 RBC 3.62 10^6/uL (3.85-5.65) L 07/27/24 01:15 Hgb 10.70 g/dL (11.27-16.99) L 07/27/24 01:15 Hct 33.4 % (36-47) L 07/27/24 01:15 MCV 92.3 fl (85-98) 07/27/24 01:15 MCH 29.6 pg (27-33) 07/27/24 01:15 MCHC 32.0 g/dL (30-55) 07/27/24 01:15 RDW 14.9 % (12.1-15.1) 07/27/24 01:15 Plt Count 233 10^3/cmm (157-399) 07/27/24 01:15 MPV 9.0 fL (7.4-10.4) 07/27/24 01:15 Neut % (Auto) 78.3 % 07/27/24 01:15 Lymph % (Auto) 14.8 % 07/27/24 01:15 Sampson % (Auto) 5.8 % 07/27/24 01:15 Eos % (Auto) 0.0 % 07/27/24 01:15 Baso % (Auto) 0.3 % 07/27/24 01:15 Neut # (Auto) 7.28 10^3/uL (1.8-7.7) 07/27/24 01:15 Lymph # (Auto) 1.4 10^3/uL (0.8-4.8) 07/27/24 01:15 Sampson # (Auto) 0.5 10^3/uL (0.2-0.9) 07/27/24 01:15 Eos # (Auto) 0.0 10^3/uL (0.0-0.8) 07/27/24 01:15 Baso # (Auto) 0.0 10^3/uL (0.0-0.1) 07/27/24 01:15 Nucleated RBC % (auto) 0 % 07/27/24 01:15 Nucleated RBCs # 0.0 /100WBC 07/27/24 01:15 Sodium 133 mmol/L (136-145) L 07/27/24 01:15 Potassium 3.8 mmol/L (3.5-5.1) 07/27/24 01:15 Chloride 100 mmol/L (98-107) 07/27/24 01:15 Carbon Dioxide 18 mmol/L (22-29) L 07/27/24 01:15 Anion Gap 18.8 (5-19) 07/27/24 01:15 BUN 16 mg/dL (8-23) 07/27/24 01:15 Creatinine 0.7 mg/dL (0.5-0.9) 07/27/24 01:15 GFR Calculation 84.8 mL/min (90-130) L 07/27/24 01:15 Glucose 92 mg/dL (65-115) 07/27/24 01:15 Calculated Osmolality 277 mOsm/kg (285-295) L 07/27/24 01:15 Calcium 8.5 mg/dL (8.5-10.5) 07/27/24 01:15 Troponin T Baseline 8 ng/L (0-10) 07/27/24 01:15 No radiology studies performed this visit Discharge Plan Discharge Patient Disposition: Home Clinical Impression: Syncope due to orthostatic hypotension, Dehydration Condition: Stable Prescriptions: No Action acetylcysteine 600 mg capsule 600 mg PO BID Qty: 60 2RF Breztri Aerosphere 160-9-4.8 mcg/actuation HFA aerosol inhaler 2 inh inhalation BID Qty: 10.7 3RF Rx Instructions: stop Trelegy pantoprazole 20 mg tablet,delayed release (DR/EC) 20 mg PO DAILY 30 Days Qty: 30 1RF albuterol sulfate 90 mcg/actuation HFA aerosol inhaler 2 puff inhalation Q6H PRN (Reason: bronchospasm) Qty: 8.5 5RF albuterol sulfate 2.5 mg /3 mL (0.083 %) solution for nebulization 2.5 mg inhalation Q4H PRN (Reason: Shortness Of Breath) Qty: 300 5RF ergocalciferol (vitamin D2) 1,250 mcg (50,000 unit) capsule 1,250 mcg PO .monthly Qty: 1 5RF aspirin [Adult Low Dose Aspirin] 81 mg tablet,delayed release (DR/EC) 81 mg PO DAILY Qty: 90 0RF prednisone 10 mg tablet See Taper PO BID Qty: 42 0RF Taper: predniSONE 60-10 60 mg Daily for 2 Days and 0 Hour 50 mg Daily for 2 Days and 0 Hour 40 mg Daily for 2 Days and 0 Hour 30 mg Daily for 2 Days and 0 Hour 20 mg Daily for 2 Days and 0 Hour 10 mg Daily for 2 Days and 0 Hour Discharge Orders: Discharge ED (Routine); Ordered 07/27/24 Ordered By: Jose Agrawal Referrals: Irina Caruso, PROMOTIONS DIRECTOR-C [Primary Care Provider] - Discharge Diet: As Directed Discharge Activity: Limit activity as instructed Patient Instructions: Opioid Safety, Pain Management Activity Restrictions/Additional Instructions: 1. Increase salt in diet. Push Fluids. 2. Keep follow up with PCP next week. Print Language: Panamanian Coding Level of Care Code ED Bet Taker for Efrain Crain
[2024-07-27 02:17] VITALS: BP 91/59; PULSE 77; RESP 18; TEMP 36.8; O2SAT 95
--- NOTE | 2024-07-27 02:17 | W.ED.SYNCOPE ---
HPI - Syncope General: Chief Complaint: Syncope Stated Complaint: SYNCOPE Time Seen by Provider: 07/27/24 00:37 History of Present Illness: Patient presents for evaluation of syncope that occurred today. Reports suddenly feeling hot while sitting on the couch, called out that she was going to pass out, and then lost consciousness. No bowel or bladder incontinence reported. Brief post-event arm movement was observed by family member, but no witnessed generalized seizure activity. Patient was unconscious for approximately 2 minutes. Upon regaining consciousness, patient had recall of events leading up to the syncope. Past Medical History: Notable for chronically low blood pressure, typically running around 90/50. Patient had one previous syncopal episode approximately 1.5-2 years ago, which was evaluated but no specific cause was identified. Recent History: Patient was seen in clinic approximately 2 weeks ago for respiratory issues. Medication changes included discontinuation of Trelegy with transition to a new medication (specific medication not mentioned). Social History: Current smoker. Poor oral intake noted, with family reporting patient 'doesn't eat much' and stays cold frequently due to low body mass. Related Data Previous Rx's ?Medication ?Instructions ?Recorded aspirin 81 mg tablet,delayed 81 mg PO DAILY #90 tabs 08/26/20 release (Adult Low Dose Aspirin) albuterol sulfate 2.5 mg/3 mL 2.5 mg (3 mL) inhalation Q4H PRN 03/08/23 (0.083 %) solution for nebulization Shortness Of Breath #300 mL albuterol sulfate 90 mcg/actuation 2 puff inhalation Q6H PRN 10/24/23 aerosol inhaler bronchospasm #8.5 grams ergocalciferol (vitamin D2) 1,250 1,250 mcg PO .monthly #1 cap 03/13/24 mcg (50,000 unit) capsule acetylcysteine 600 mg capsule 600 mg PO BID #60 caps 05/22/24 prednisone 10 mg tablet See Taper PO BID #42 tabs 07/02/24 budesonide 160 mcg-glycopyr 9 2 inh inhalation BID #10.7 grams 07/09/24 mcg-formot 4.8 mcg/actuation HFA inhaler (Breztri Aerosphere) pantoprazole 20 mg tablet,delayed 20 mg PO DAILY 30 days #30 tabs 07/09/24 release Allergies Allergy/AdvReac Type Severity Reaction Status Date / Time codeine Allergy ADR-Nausea Verified 07/09/24 15:27 morphine Allergy ALGY-Hives Verified 07/09/24 15:27 PFSH ED PFSH: Medical History Neuralgia, post-herpetic COPD (chronic obstructive pulmonary disease) Alveolar emphysema of lung Surgical History History of hysterectomy History of cholecystectomy Family History Other CAD (coronary artery disease) COPD (chronic obstructive pulmonary disease) Cancer Denies family history of Bleeding disorder Social History Smoking and tobacco/nicotine status: current every day tobacco/nicotine user (1 ppd) cigarettes Packs smoked per day: 1 Years cigarettes smoked: 40 [ Other cigarette details: started at age 21 years] Second hand smoke exposure: Yes Alcohol intake: never Substance/Drug Use: never Adopted: No Caregiver/support person: No Lives independently: Yes Household members: spouse Marital status: Number of children: 3 service: No Current occupational status: employed Current occupation: [employer] Do you think of yourself as: Straight/Heterosexual Current gender identity: Female Physical Exam Const: COMMON NORMALS: no acute distress, patient oriented x3, alert and well nourished HENMT: COMMON NORMALS: normocephalic HEAD & SCALP: normocephalic Eye: COMMON NORMALS: Equal, round and reactive pupils present, EOMs intact bilaterally and conjunctivae normal CONJUNCTIVA: Yes conjunctivae normal PUPIL: Yes Equal, round and reactive pupils present Neck/C-Spine: COMMON NORMALS: full ROM, no lymphadenopathy, supple, no meningeal signs, no JVD and Thyroid normal THYROID: Thyroid normal Chest: COMMONS NORMALS: normal inspection of the chest and normal palpation of entire chest wall Resp: COMMON NORMALS: normal respiratory effort, No retractions, No use of accessory muscles, clear to auscultation bilaterally and percussion normal AUSCULTATION: clear to auscultation bilaterally PERCUSSION: percussion normal Cardio: COMMON NORMALS: no JVD GI: COMMON NORMALS: Normal to inspection, nondistended, normoactive bowel sounds present, Soft to palpation, non-tender, No hepatosplenomegaly present, no masses and no bruits PALPATION: Yes Soft to palpation and Yes No hepatosplenomegaly present : COMMON NORMALS: Yes no CVA tenderness BLADDER/KIDNEY EXAM: Yes no CVA tenderness Back/Pelvis: COMMON NORMALS: no CVA tenderness Extremity: COMMON NORMALS: normal to inspection, full ROM, capillary refill normal, no joint enlargement, no clubbing, cyanosis or edema, no calf tenderness and no pedal edema Neuro: COMMON NORMALS: patient oriented x3 SENSORIUM/ORIENTATION: Yes alert MENINGEAL SIGNS: Yes no meningeal signs Skin: COMMON NORMALS: no rashes or lesions noted, turgor normal and no jaundice GENERAL SKIN EXAM: no rashes or lesions noted and turgor normal Course Vital Signs: Vital signs: Vital Signs Temperature 98.2 F 07/27/24 02:17 Pulse Rate 77 07/27/24 02:17 Respiratory Rate 18 07/27/24 02:17 Blood Pressure 91/59 07/27/24 02:17 Pulse Oximetry 95 07/27/24 02:17 Oxygen Delivery Me thod Room Air 07/27/24 01:02 MDM - Syncope Medical Decision Making 1. Vasovagal Syncope, likely due to chronic hypotension: - Most likely etiology is baseline low blood pressure with acute drop precipitating syncope - No evidence of cardiac arrhythmia or other acute pathology on workup - Safe for discharge with close follow-up 2. Chronic Hypotension: - Advised to increase fluid intake and frequency of meals - Recommended liberalization of sodium intake - Discussed possibility of medication (likely fludrocortisone) if episodes become more frequent - Currently not recommending medication given infrequent episodes and side effect profile 3. Poor Nutrition/Low Body Mass: - Encouraged increased caloric intake - Recommended frequent small meals 4. Tobacco Use: - Advised smoking cessation - Acknowledged difficulty with cessation when others in household smoke Follow-up: - Follow up with primary care physician - Return to ED if syncope recurs - Monitor blood pressure at home if possible Lab Data 07/27/24 01:15 07/27/24 01:15 Laboratory Results WBC 9.30 10^3/uL (3.29-11.43) 07/27/24 01:15 RBC 3.62 10^6/uL (3.85-5.65) L 07/27/24 01:15 Hgb 10.70 g/dL (11.27-16.99) L 07/27/24 01:15 Hct 33.4 % (36-47) L 07/27/24 01:15 MCV 92.3 fl (85-98) 07/27/24 01:15 MCH 29.6 pg (27-33) 07/27/24 01:15 MCHC 32.0 g/dL (30-55) 07/27/24 01:15 RDW 14.9 % (12.1-15.1) 07/27/24 01:15 Plt Count 233 10^3/cmm (157-399) 07/27/24 01:15 MPV 9.0 fL (7.4-10.4) 07/27/24 01:15 Neut % (Auto) 78.3 % 07/27/24 01:15 Lymph % (Auto) 14.8 % 07/27/24 01:15 Pacific % (Auto) 5.8 % 07/27/24 01:15 Eos % (Auto) 0.0 % 07/27/24 01:15 Baso % (Auto) 0.3 % 07/27/24 01:15 Neut # (Auto) 7.28 10^3/uL (1.8-7.7) 07/27/24 01:15 Lymph # (Auto) 1.4 10^3/uL (0.8-4.8) 07/27/24 01:15 Pacific # (Auto) 0.5 10^3/uL (0.2-0.9) 07/27/24 01:15 Eos # (Auto) 0.0 10^3/uL (0.0-0.8) 07/27/24 01:15 Baso # (Auto) 0.0 10^3/uL (0.0-0.1) 07/27/24 01:15 Nucleated RBC % (auto) 0 % 07/27/24 01:15 Nucleated RBCs # 0.0 /100WBC 07/27/24 01:15 Sodium 133 mmol/L (136-145) L 07/27/24 01:15 Potassium 3.8 mmol/L (3.5-5.1) 07/27/24 01:15 Chloride 100 mmol/L (98-107) 07/27/24 01:15 Carbon Dioxide 18 mmol/L (22-29) L 07/27/24 01:15 Anion Gap 18.8 (5-19) 07/27/24 01:15 BUN 16 mg/dL (8-23) 07/27/24 01:15 Creatinine 0.7 mg/dL (0.5-0.9) 07/27/24 01:15 GFR Calculation 84.8 mL/min (90-130) L 07/27/24 01:15 Glucose 92 mg/dL (65-115) 07/27/24 01:15 Calculated Osmolality 277 mOsm/kg (285-295) L 07/27/24 01:15 Calcium 8.5 mg/dL (8.5-10.5) 07/27/24 01:15 Troponin T Baseline 8 ng/L (0-10) 07/27/24 01:15 No radiology studies performed this visit Discharge Plan Discharge Patient Disposition: Home Clinical Impression: Syncope due to orthostatic hypotension, Dehydration Condition: Stable Prescriptions: No Action acetylcysteine 600 mg capsule 600 mg PO BID Qty: 60 2RF Breztri Aerosphere 160-9-4.8 mcg/actuation HFA aerosol inhaler 2 inh inhalation BID Qty: 10.7 3RF Rx Instructions: stop Trelegy pantoprazole 20 mg tablet,delayed release (DR/EC) 20 mg PO DAILY 30 Days Qty: 30 1RF albuterol sulfate 90 mcg/actuation HFA aerosol inhaler 2 puff inhalation Q6H PRN (Reason: bronchospasm) Qty: 8.5 5RF albuterol sulfate 2.5 mg /3 mL (0.083 %) solution for nebulization 2.5 mg inhalation Q4H PRN (Reason: Shortness Of Breath) Qty: 300 5RF ergocalciferol (vitamin D2) 1,250 mcg (50,000 unit) capsule 1,250 mcg PO .monthly Qty: 1 5RF aspirin [Adult Low Dose Aspirin] 81 mg tablet,delayed release (DR/EC) 81 mg PO DAILY Qty: 90 0RF prednisone 10 mg tablet See Taper PO BID Qty: 42 0RF Taper: predniSONE 60-10 60 mg Daily for 2 Days and 0 Hour 50 mg Daily for 2 Days and 0 Hour 40 mg Daily for 2 Days and 0 Hour 30 mg Daily for 2 Days and 0 Hour 20 mg Daily for 2 Days and 0 Hour 10 mg Daily for 2 Days and 0 Hour Discharge Orders: Discharge ED (Routine); Ordered 07/27/24 Ordered By: Jose Agrawal Referrals: Irina Caruso, TOP BOTTOM ATTACHING MACHINE OPERATOR-C [Primary Care Provider] - Discharge Diet: As Directed Discharge Activity: Limit activity as instructed Patient Instructions: Opioid Safety, Pain Management Activity Restrictions/Additional Instructions: 1. Increase salt in diet. Push Fluids. 2. Keep follow up with PCP next week. Print Language: Greenlandic Coding Level of Care Code ED Surg Rn for Efrain Crain
[2024-07-27 06:55] LABS: Glucose Point of Care 99 mg/dL (70-110)
== END 2024-07-27 02:23 | disposition home or self-care (01) ==
PROVIDERS: Emergency Provider Family Medicine; PCP Nurse Practitioner
DX: I95.1 Orthostatic hypotension (principal); E86.0 Dehydration; Z79.82 Long term (current) use of aspirin; F17.210 Nicotine dependence, cigarettes, uncomplicated; J44.9 Chronic obstructive pulmonary disease, unspecified
CPT/HCPCS: 36415; 36416; 80048; 82962; 84484; 85025; 93005; 99284

== ENCOUNTER → 2024-08-19 11:42 | Outpatient (BNVA) | payer BC, SELFPAY | PROVIDERS: PCP Nurse Practitioner; Visit Provider Clinical Nurse Specialist Adult Health | DX: R07.81 Pleurodynia (principal); J44.1 Chronic obstructive pulmonary disease with (acute) exacerbation | CPT/HCPCS: 71046 ==

== ENCOUNTER 2024-09-03 07:45 | Outpatient (CLI) | payer BC, SELFPAY ==
[2024-09-03 07:48] VITALS: BMI 11.9
--- NOTE | 2024-09-03 07:48 | ECG_ITS ---
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 The perfusion scan will be documented separately. DATA: Baseline heart rate was 78 beats per minute. Baseline blood pressure was 105/53 millimeters of mercury. Target heart rate was 158. Maximum heart rate achieved was 110. which was 69% of the predicted target heart rate. Maximum blood pressure was 113/61 millimeters of mercury. The reason for ending the test was completion of protocol ELECTROCARDIOGRAM: BASELINE: Sinus rhythm. Normal axis. Otherwise, no ST-T changes suggestive of ischemia noted. No arrhythmia noted. EXERCISE: After Lexiscan injection, no ST-T changes suggestive of ischemic noted. No arrhythmia noted. CONCLUSION: Please note due to baseline abnormality of the EKG specificity and sensitivity of the EKG portion of LexiScan MIBI stress test will be low 1. EKG not suggestive of ischemia 2. Lexiscan injection unremarkable. 3. Perfusion scan will be documented separately. Electronically Signed On 09-16-2024 18:34:17 CDT by KENNETH GONCALVES [email or web address]
--- NOTE | 2024-09-03 07:49 | NMCV_ITS ---
NM aron perf SPECT r/s* [id number] Allison Peoples Age: 64 Gender: F : 1960 Exam Date: 09/03/2024 08:54 Ordering Phys: Kenneth Goncalves MD ([email or web address]) Technologist: RAMAN Wilkinson Exam Location: [facility] Indications: cp STRESS TEST Please see separate stress test report in [facility] for full findings IMAGE PROTOCOL Rest/Stress 1 Lexiscan Day Radiopharmaceutical Dose (mCi) Administration Site Administered by Rest: Tc-99m 10.7 IV RAMAN Wilkinson Sestamibi Stress:Tc-99m 32.7 IV RAMAN Erickson Sestamibi Rest: 03-Sep-2024 60 Discovery 630 Stress: 03-Sep-2024 30 Discovery 630 0.4mg Lexiscan. Images obtained in supine and prone position. SPECT RESULTS Technical Quality: Good Raw Data Analysis: Normal Image Corrections: No attenuation or motion correction applied Summed Stress Score: 0 Summed Rest Score: 0 Summed Difference Score: 0 PERFUSION FINDINGS SPECT images demonstrate homogeneous tracer distribution throughout the myocardium. FUNCTIONAL RESULTS (calculated via Gated SPECT) Stress Image LV EF (%): 89 Stress EDV (mL):27 TID: 0.73 Stress ESV (mL):3 FUNCTIONAL FINDINGS: There is normal left ventricular systolic function. IMPRESSIONS 1. Normal myocardial perfusion imaging with no evidence of ischemia. 2. LV systolic function is normal Frankie Mcmahan MD (Electronically Signed) Final Date: 09 September 2024 08:51 S
[2024-09-03] MEDS: regadenoson 0.4 Mg/5 ml Syringe IVP (09:21)
[2024-09-03 09:40] VITALS: BP 97/55; PULSE 92
== END 2024-09-03 07:46 | disposition home or self-care (01) ==
LOC: CDL 07:46
PROVIDERS: PCP Nurse Practitioner; Visit Provider Internal Medicine Cardiovascular Disease
DX: R07.9 Chest pain, unspecified (principal); R06.02 Shortness of breath
CPT/HCPCS: 36415; 78452; 93017; 96374; A9500; J2785

== ENCOUNTER 2024-09-15 10:47 | Outpatient (CLI) | payer BC, SELFPAY ==
--- NOTE | 2024-09-15 11:00 | CT_ITS ---
WS: [id number] CT NECK TECHNIQUE: Contrast-enhanced CT of the neck with coronal and sagittal reformatted images. CLINICAL INFORMATION: R13.10 - Dysphagia, unspecified COMPARISON: None. DLP: 127.[address] scans at [facility] use at least one of these dose optimization techniques: automated exposure control; mA and/or kV adjustment per patient size (includes targeted exams where dose is matched to clinical indication); or iterative reconstruction. FINDINGS: Normal parotid glands. Normal submandibular glands. Normal posterior nasopharynx. Normal parapharyngeal fat. No evidence of supraglottic or glottic mass. Ballooning of the RIGHT laryngeal ventricle. Recommend further evaluation with endoscopy and correlation for RIGHT vocal cord paralysis. Medial rotation of the arytenoid. Slight ballooning of the RIGHT piriform sinus. Normal subglottic airway. Fibrosis in the lung apices. Straightening of the normal upper cervical lordosis. Slight retrolisthesis C3 on C4 and C4 on C5. Small bilateral thyroid nodules RIGHT greater than LEFT. Largest on the RIGHT measuring [address]/CT neck w con* [id number] IMPRESSION: 1. Suspicion for RIGHT vocal cord paralysis. Recommend further evaluation with endoscopy. 2. No other acute findings.
[2024-09-15] MEDS: iohexol 350 mg/mL 500 mL Btl (per mL) IV (11:09)
== END 2024-09-15 10:48 | disposition home or self-care (01) ==
PROVIDERS: PCP Nurse Practitioner; Visit Provider Nurse Practitioner
DX: R13.10 Dysphagia, unspecified (principal); J38.7 Other diseases of larynx; J84.10 Pulmonary fibrosis, unspecified; R93.7 Abnormal findings on diagnostic imaging of other parts of musculoskeletal system; E04.2 Nontoxic multinodular goiter
CPT/HCPCS: 70491

== ENCOUNTER 2024-09-27 14:12 | Observation (INO) | payer BC, SELFPAY ==
[2024-09-27] VITALS (11 sets, daily range): BP systolic 86–110; BP diastolic 53–73; PULSE 77–97; RESP 18–23; TEMP 36.6–37.2; O2SAT 93–97; BMI 11.9
--- NOTE | 2024-09-27 14:14 | ECG_ITS ---
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 Measurements Intervals [place] Rate: 94 P: 85 ND: 138 QRS: 91 QRSD: 93 T: 80 QT: 323 QTc: 405 Interpretive Statements SINUS RHYTHM POSSIBLE RIGHT ATRIAL ENLARGEMENT [0.25mV P-WAVE] POSSIBLE LEFT ATRIAL ENLARGEMENT [-0.1mV P-WAVE IN V1/V2] BORDERLINE RIGHT AXIS DEVIATION [QRS AXIS > 90] Compared to ECG 07/27/2024 00:42:30 No significant changes Electronically Signed On 09-28-2024 12:34:51 CDT by Shania Sim M.D. [id number]
--- NOTE | 2024-09-27 14:25 | XRR_ITS ---
PROCEDURE INFORMATION: Exam: XR Chest Exam date and time: 09/27/2024 2:41 PM Age: 64 years old Clinical indication: Chest pressure; PT complains of chest pain and shortness of breath that has been going on since last night. Pain in chest is on the left and is worse with coughing. PT has a history of copd. PT does not typicaly wear oxygen all the time, just at night. TECHNIQUE: Imaging protocol: Radiologic exam of the chest. Views: 1 view. COMPARISON: CR XR chest 2V* [id number] 08/19/2024 11:41 AM FINDINGS: Lungs: Lung volumes are large. The lungs are hyperlucent. There is ill-defined reticular opacity in the mid to lower lungs bilaterally, decreased since 08/19/2024. Pleural spaces: There is no pleural effusion or pneumothorax. Heart/Mediastinum: Cardiomediastinal contours are unremarkable. Bones/joints: Bones are unremarkable. XR/XR chest 1V portable [id number] IMPRESSION: 1. Nonspecific bilateral lower lung opacity is decreased since 08/19/2024. Probable resolving infection or edema. A recurrent acute process is not excluded. 2. Large lung volumes consistent with COPD.
[2024-09-27] MEDS: aspirin 81 mg Chew Tablet 324 MG PO (14:34)
[2024-09-27 14:40] LABS: Basophils # 0.1 10^3/uL (0.0-0.1); Basophils % 0.4 %; Hematocrit 33.7 % (36-47); Lymphocytes % 6.1 %; Mean Corpuscular HGB Conc 31.8 g/dL (30-55); Mean Corpuscular Hemoglobin 28.9 pg (27-33); Mean Corpuscular Volume 91.1 fl (85-98); Monocytes % 5.6 %; Neutrophils # 14.87 10^3/uL (1.8-7.7); Neutrophils % 87.4 %; Nucleated Red Blood Cells % 0 %; Platelet Count 280 10^3/cmm (157-399); Red Cell Distribution Width 17.4 % (12.1-15.1); White Blood Count 17.01 10^3/uL (3.29-11.43)
[2024-09-27 14:59] LABS: Troponin(5th) Baseline 9 ng/L (0-10)
--- NOTE | 2024-09-27 15:03 | ED_ITS ---
HPI - SOB/Dyspnea 2 General: Chief Complaint: Shortness of Breath/Dyspnea Stated Complaint: sob; chest pain Time Seen by Provider: 09/27/24 14:25 History of Present Illness: HPI Narrative: 64-year-old female who presents emergenc y room planing shortness of breath and chest discomfort. She has a history of COPD she reporting she had difficulty breathing her O2 sat was reported to be down to 56% on room air. She wears oxygen only at night usually. Now she is requiring 2 L by nasal cannula during the day. Exertion worsens her discomfort she has no known history of coronary disease. Associated symptoms: Deny abdominal pain, chest pain or fever(s) Related Data Previous Rx's ?Medication ?Instructions ?Recorded aspirin 81 mg tablet,delayed 81 mg PO DAILY #90 tabs 0 08/26/20 release (Adult Low Dose Aspirin) albuterol sulfate 2.5 mg/3 mL 2.5 mg (3 mL) inhalation Q4H PRN 03/08/23 (0.083 %) solution for nebulization Shortness Of Breat h #300 mL albuterol sulfate 90 mcg/actuation 2 puff inhalation Q 6H PRN 10/24/23 aerosol inhaler bronchospasm #8.5 grams ergocalciferol (vitamin D2) 1,250 1,250 mcg PO .monthl y #1 cap 03/13/24 mcg (50,000 unit) capsule acetylcysteine 600 mg capsule 600 mg PO BID #60 caps 0 05/22/24 budesonide 160 mcg-glycopyr 9 2 inh inhalation BID #10 .7 grams 07/09/24 mcg-formot 4.8 mcg/actuation HFA inhaler (Breztri Aerosphere) pantoprazole 20 mg tablet,delayed 20 mg PO DAILY 30 da ys #30 tabs 07/09/24 release nitroglycerin 0.4 mg sublingual 0.4 mg sublingual Q5M PRN chest 08/07/24 tablet pain #25 tabs budesonide 0.5 mg/2 mL suspension 0.5 mg (2 mL) inhala tion BID #60 mL 08/19/24 for nebulization prednisone 20 mg tablet See Rx Instructions .Route 0 08/19/24 .COMPLEX #14 tabs levofloxacin 500 mg tablet 500 mg PO DAILY #7 tabs 02/05 Allergies Allergy/AdvReac Type Severity Reaction Status Date / Time codeine Allergy ADR-Nausea Verified 09/18/24 16:02 morphine Allergy ALGY-Hives Verified 09/18/24 16:02 Review of Systems 2 Const: Denies: fever(s) or chills Card: Denies: chest pain Resp: Reports: dyspnea and wheezing GI: Denies: abdominal pain : Denies: dysuria, urinary frequency or urinary urgency Musc: Denies: neck pain or back pain Skin/Breast: Denies: rash PFSH ED 2 PFSH: Medical History (Updated 09/27/24 @ 16:32 by Hossein Patterson DO) Neuralgia, post-herpetic COPD (chronic obstructive pulmonary disease) Alveolar emphysema of lung Surgical History History of hysterectomy History of cholecystectomy Family History Other CAD (coronary artery disease) COPD (chronic obstructive pulmonary disease) Cancer Denies family history of Bleeding disorder Social History Smoking and tobacco/nicotine status: current every day tobacco/nicotine user (1 ppd) cigarettes Packs smoked per day: 1 Years cigarettes smoked: 40 [ Other cigarette details: started at age 21 years] Second hand smoke exposure: Yes Alcohol intake: never Substance/Drug Use: never Adopted: No Caregiver/support person: No Lives independently: Yes Household members: spouse Marital status: Number of children: 3 service: No Current occupational status: employed Current occupation: [employer] Do you think of yourself as: Straight/Heterosexual Current gender identity: Female Physical Exam 2 Const: GENERAL APPEARANCE: cooperative ORIENTATION/CONSCIOUSNESS: Yes awake, Yes oriented to person, Yes oriented to place and Yes oriented to time HENMT: COMMON NORMALS: normocephalic, atraumatic and hearing grossly normal bilaterally HEAD & SCALP: normocephalic and atraumatic Resp: EFFORT & INSPECTION: Yes tachypneic, Yes pursed lip breathing, Yes labored and Yes uses accessory muscles AUSCULTATION: rhonchi and wheezes Cardio: COMMON NORMALS: regular rate, regular rhythm and No murmurs present (Cardio) RATE: regular rate RHYTHM: regular rhythm GI: COMMON NORMALS: Soft to palpation and No hepatosplenomegaly present A USCULTATION: Yes normoactive bowel sounds PALPATION: Yes Soft to palpation, No Tenderness to palpation present (GI), No Guarding due to palpation present (GI) and Yes No hepatosplenomegaly present Extremity: COMMON NORMALS: normal to inspection, capillary refill normal, no clubbing, cyanosis or edema, no calf tenderness and no pedal edema Neuro: SENSORIUM/ORIENTATION: Yes oriented to person, Yes oriented to place and Yes oriented to time Skin: COMMON NORMALS: no rashes or lesions noted GENERAL SKIN EXAM: no rashes or lesions noted Course 2 Vital Signs: Vital signs: Vital Signs Temperature 98.9 F 09/27/24 14:22 Pulse Rate 88 09/27/24 16:00 Respiratory Rate 18 09/27/24 15:12 Blood Pressure 86/53 09/27/24 16:00 Pulse Oximetry 94 09/27/24 16:00 Oxygen Delivery Me thod Nasal Cannula 09/27/24 16:00 Oxygen Flow Rate 2 09/27/24 15:12 MDM - SOB/Dyspnea Medical Decision Making Acute exacerbation COPD improvement with steroids and nebulizer. She is requiring 2 L per nasal cannula. Will place on observation for acute exacerbation COPD. Medical Records I reviewed the patient's medical records. Lab Data I reviewed the patient's lab results. 09/27/24 14:35 09/27/24 14:35 Labs/Radiology: Radiology Impressions Chest X-Ray 09/27/24 14:25 IMPRESSION: 1. Nonspecific bilateral lower lung opacity is decreased since 08/19/2024. Probable resolving infection or edema. A recurrent acute process is not excluded. 2. Large lung volumes consistent with COPD. Laboratory Results WBC 17.01 10^3/uL (3.29-11.43) H 09/27/24 14:35 RBC 3.70 10^6/uL (3.85-5.65) L 09/27/24 14:35 Hgb 10.70 g/dL (11.27-16.99) L 09/27/24 14:35 Hct 33.7 % (36-47) L 09/27/24 14:35 MCV 91.1 fl (85-98) 09/27/24 14:35 MCH 28.9 pg (27-33) 09/27/24 14:35 MCHC 31.8 g/dL (30-55) 09/27/24 14:35 RDW 17.4 % (12.1-15.1) H 09/27/24 14:35 Plt Count 280 10^3/cmm (157-399) 09/27/24 14:35 MPV 9.0 fL (7.4-10.4) 09/27/24 14:35 Neut % (Auto) 87.4 % 09/27/24 14:35 Lymph % (Auto) 6.1 % 09/27/24 14:35 [place] % (Auto) 5.6 % 09/27/24 14:35 Eos % (Auto) 0.0 % 09/27/24 14:35 Baso % (Auto) 0.4 % 09/27/24 14:35 Neut # (Auto) 14.87 10^3/uL (1.8-7.7) H 09/27/24 14:35 Lymph # (Auto) 1.0 10^3/uL (0.8-4.8) 09/27/24 14:35 [place] # (Auto) 1.0 10^3/uL (0.2-0.9) H 09/27/24 14:35 Eos # (Auto) 0.0 10^3/uL (0.0-0.8) 09/27/24 14:35 Baso # (Auto) 0.1 10^3/uL (0.0-0.1) 09/27/24 14:35 Nucleated RBC % (auto) 0 % 09/27/24 14:35 Nucleated RBCs # 0.0 /100WBC 09/27/24 14:35 D-Dimer 1.56 ug/mLFEU (0-0.59) H 09/27/24 14:35 Sodium 133 mmol/L (136-145) L 09/27/24 14:35 Potassium 3.8 mmol/L (3.5-5.1) 09/27/24 14:35 Chloride 99 mmol/L (98-107) 09/27/24 14:35 Carbon Dioxide 21 mmol/L (22-29) L 09/27/24 14:35 Anion Gap 16.8 (5-19) 09/27/24 14:35 BUN 10 mg/dL (8-23) 09/27/24 14:35 Creatinine 0.5 mg/dL (0.5-0.9) 09/27/24 14:35 GFR Calculation 125.0 mL/min (90-130) 09/27/24 14:35 Glucose 93 mg/dL (65-115) 09/27/24 14:35 Calculated Osmolality 275 mOsm/kg (285-295) L 09/27/24 14:35 Lactic Acid 1.0 mmol/L (0.5-2.2) 09/27/24 14:35 Calcium 8.6 mg/dL (8.5-10.5) 09/27/24 14:35 Total Bilirubin 0.6 mg/dL (0.15-1.2) 09/27/24 14:35 AST 9 U/L (0-32) 09/27/24 14:35 ALT < 5 U/L (0-33) 09/27/24 14:35 Alkaline Phosphatase 81 U/L (35-105) 09/27/24 14:35 Troponin T Baseline 9 ng/L (0-10) 09/27/24 14:35 Troponin T 120 Minute 8.56 ng/L (0-10) 09/27/24 16:22 Delta Troponin T -0.44 ABS# (0-10) L 09/27/24 16:22 Total Protein 6.2 g/dL (6.6-8.7) L 09/27/24 14:35 Albumin 3.2 g/dL (3.5-5.2) L 09/27/24 14:35 Globulin 3.0 g/dL (1.3-4.6) 09/27/24 14:35 All radiology interpretation(s) finalized by discharge Discharge Plan Discharge Patient Disposition: Placed in Observation Clinical Impression: Acute exacerbation of chronic obstructive airways disease Coding Level of Care Code 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
[2024-09-27 15:05] LABS: Alanine Aminotransferase < 5 U/L (0-33); Albumin Level 3.2 g/dL (3.5-5.2); Alkaline Phosphatase 81 U/L (35-105); Anion Gap 16.8 (5-19); Aspartate Amino Transferase 9 U/L (0-32); Blood Urea Nitrogen 10 mg/dL (8-23); Calcium 8.6 mg/dL (8.5-10.5); Carbon Dioxide 21 mmol/L (22-29); Chloride 99 mmol/L (98-107); Creatinine Clr Calc Pharmacy 61.8174; Glucose 93 mg/dL (65-115); Osmolality Calculated 275 mOsm/kg (285-295); Potassium 3.8 mmol/L (3.5-5.1); Sodium 133 mmol/L (136-145); Total Bilirubin 0.6 mg/dL (0.15-1.2); Total Protein 6.2 g/dL (6.6-8.7)
[2024-09-27] MEDS: ipratropium-albuterol 3 mL Neb INHALATION ×2 (15:16→20:57)
[2024-09-27] MEDS: methylPREDNISolone sod succ 125 mg/2 mL INJ IVP (15:21)
--- NOTE | 2024-09-27 16:27 | PC.NURSE ---
pt requesting water, notified and okayed pt to have water.
[2024-09-27 16:50] LABS: Troponin 5 2HR 8.56 ng/L (0-10); Troponin 5 2HR Delta -0.44 ABS# (0-10)
[2024-09-27] MEDS: sodium chloride 0.9% 1,000 ML 999 ML IV (16:52)
--- NOTE | 2024-09-27 17:01 | P.HP_ITS ---
Providers/Chief Complaint 2 Primary Care Provider: JENNIFER QuinnC Chief Complaint: sob; chest pain History of Present Illness Allison Peoples is a 64 year old female who is a current smoker, history of COPD on as needed oxygen after in hospital in June when she was treated for right lower lobe pneumonia presents to the ER with difficulty in breathing worsening for last 2 to 3 days. Patient has been complaining of runny nose and increased cough for last 1 week. Denies any nausea, vomiting, headache. Denies any sick contacts. Continues to smoke. States she has COPD exacerbation at least 4-5 times a year. In the ER was found to be hypoxic requiring up to 2 to 3 L of oxygen supplementation. Review of Systems 2 General: Reports: 10 or more systems reviewed and unremarkable except in HPI and below Const: Denies: fever(s), chills, body aches, change in appetite, change in weight, malaise, night sweats, diaphoresis, change in sleep pattern, daytime sleepiness or snoring Eyes: Denies: change in vision, blurry vision, photophobia, eye discomfort or eye discharge ENMT: Denies: throat pain, enlarged tonsils, hoarseness, mouth pain, oral sores, dry mouth, tinnitus, nasal congestion or post nasal drip Card: Denies: chest pain, palpitations, irregular heart rhythm, edema, swelling of feet/ankles, lightheadedness, syncope, pre-syncope, dyspnea on exertion, orthopnea, leg pain with exertion or acrocyanosis Resp: Denies: dyspnea, productive cough, non-productive cough, wheezing, stridor, pain on inspiration, change in phlegm color, hemoptysis or chest congestion GI: Denies: abdominal pain, nausea, vomiting, hematemesis, coffee ground emesis, dysphagia, heartburn, diarrhea, constipation, bloating, GI cramping, change in bowel habits, pain on defecation, hematochezia or melena : Denies: flank pain, dysuria, urinary frequency, urinary urgency, urinary hesitancy, nocturia or hematuria Musc: Denies: neck pain, back pain, extremity pain, joint pain, joint swelling, joint redness, joint stiffness or limited range of motion Neuro: Denies: headache(s), numbness in extremities, weakness in extremities, sensory changes, lack of coordination, difficulty walking, frequent falls, dizziness, vertigo, confusion, Slurred speech present, difficulty communicating thoughts or seizure-like activity Psych: Denies: anxiety, depression, mood swings, panic attacks, hopelessness or irritability Endo: Denies: polyuria, polydipsia, tired all the time, cold intolerance, excessive sweating, flushing or heat intolerance Sandeep/Lymph: Denies: easy bruising or easy bleeding All/Imm: Denies: tongue swelling, facial swelling or acute wheezing Medications/Allergies Home Medications ?Medication ?Instructions ?Recorded ?Confirmed ?Last Taken ?Type aspirin 81 mg tablet,delayed 81 mg PO DAILY #90 tabs 0 08/26/20 09/18/24 06/30/24 Rx release (Adult Low Dose Aspirin) albuterol sulfate 2.5 mg/3 mL 2.5 mg (3 mL) inhalation Q4H PRN 03/08/23 09/18/24 06/30/24 Rx (0.083 %) solution for nebulization Shortness Of Breat h #300 mL albuterol sulfate 90 mcg/actuation 2 puff inhalation Q 6H PRN 10/24/23 09/18/24 06/30/24 Rx aerosol inhaler bronchospasm #8.5 grams ergocalciferol (vitamin D2) 1,250 1,250 mcg PO .monthl y #1 cap 03/13/24 09/18/24 Unknown Rx mcg (50,000 unit) capsule acetylcysteine 600 mg capsule 600 mg PO BID #60 caps 0 05/22/24 09/18/24 06/30/24 Rx budesonide 160 mcg-glycopyr 9 2 inh inhalation BID #10 .7 grams 07/09/24 09/18/24 Unknown Rx mcg-formot 4.8 mcg/actuation HFA inhaler (Breztri Aerosphere) pantoprazole 20 mg tablet,delayed 20 mg PO DAILY 30 da ys #30 tabs 07/09/24 09/18/24 Unknown Rx release nitroglycerin 0.4 mg sublingual 0.4 mg sublingual Q5M PRN chest 08/07/24 09/18/24 Unknown Rx tablet pain #25 tabs budesonide 0.5 mg/2 mL suspension 0.5 mg (2 mL) inhala tion BID #60 mL 08/19/24 09/18/24 Unknown Rx for nebulization prednisone 20 mg tablet See Rx Instructions .Route 0 08/19/24 09/18/24 Unknown Rx .COMPLEX #14 tabs levofloxacin 500 mg tablet 500 mg PO DAILY #7 tabs 02/0509/18/24 Unknown Rx Allergies Allergy/AdvReac Type Severity Reaction Status Date / Time codeine Allergy ADR-Nausea Verified 09/18/24 16:02 morphine Allergy ALGY-Hives Verified 09/18/24 16:02 PFSH Acute 2 PFSH: Medical History (Updated 09/27/24 @ 16:32 by Hsosein Patterson DO) Neuralgia, post-herpetic COPD (chronic obstructive pulmonary disease) Alveolar emphysema of lung Surgical History History of hysterectomy History of cholecystectomy Family History Other CAD (coronary artery disease) COPD (chronic obstructive pulmonary disease) Cancer Denies family history of Bleeding disorder Social History Smoking and tobacco/nicotine status: current every day tobacco/nicotine user (1 ppd) cigarettes Packs smoked per day: 1 Years cigarettes smoked: 40 [ Other cigarette details: started at age 21 years] Second hand smoke exposure: Yes Alcohol intake: never Substance/Drug Use: never Adopted: No Caregiver/support person: No Lives independently: Yes Household members: spouse Marital status: Number of children: 3 service: No Current occupational status: employed Current occupation: [employer] Do you think of yourself as: Straight/Heterosexual Current gender identity: Female Vitals/I&O/Wt Last Vital Signs Temp 98.9 F 09/27/24 14:22 Pulse 88 09/27/24 16:00 Resp 18 09/27/24 15:12 BP 86/53 09/27/24 16:00 Pulse Ox 94 09/27/24 16:00 O2 Del Method Nasal Cannula 09/27/24 16:00 O2 Flow Rate 2 09/27/24 15:12 Weight last 48 hrs Weight 33.566 kg Physical Exam 2 Narrative: General: No acute distress, AO x3 HEENT: PERRLA, pupils bilaterally equal and reactive Chest: Bilateral bronchial breath sounds all over lung owen with occasional rhonchi more so on the left than right CVS: S1-S2 regular, no murmurs, no tachycardia, no gallops, no rubs Abdomen: Soft, nontender, no organomegaly, bowel sounds present Neuro: No focal deficits, no facial deformity, AO x3, power 5/5 in all limbs Data 09/28/24 03:46 09/28/24 03:46 A&P Assessment and plan (1) Acute on chronic hypoxic respiratory failure: In setting of COPD exacerbation. Uses as needed oxygen. Currently on 2 L. Can supplementation keeping saturation over 88%. Check sputum culture, MRSA swab, respiratory viral panel. X-ray shows resolving pneumonia. Check D-dimer. Empirically started on IV ceftriaxone and oral azithromycin. De-escalate as per culture sensitivities. (2) COPD exacerbation: Plan Solu-Medrol 40 mg every 6 hour, Pulmicort twice daily, DuoNeb every 6 hours. Full code Regular diet Protonix for Pediaflor access Heparin for DVT prophylaxis. PDMP PDMP Reviewed: Not Reviewed Attestations 2 Medical Necessity Statement*: Admission for more than 2 midnights for management of hypoxic respiratory failure in setting of COPD exacerbation in a patient with history of recurrent pneumonia,, current smoker Diagnoses Acute on chronic hypoxic respiratory failure J96.21 COPD exacerbation J44.1
[2024-09-27 17:33] LABS: D Dimer 1.56 ug/mLFEU (0-0.59)
[2024-09-27 17:50] LABS: Procalcitonin 0.09 ng/mL (0-0.5)
--- NOTE | 2024-09-27 18:35 | ECG_ITS ---
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 Measurements Intervals [place] Rate: 76 P: 85 MS: 147 QRS: 85 QRSD: 89 T: 69 QT: 378 QTc: 426 Interpretive Statements SINUS RHYTHM POSSIBLE LEFT ATRIAL ENLARGEMENT [-0.1mV P-WAVE IN V1/V2] Compared to ECG 09/27/2024 14:16:47 No significant changes Electronically Signed On 09-28-2024 12:39:53 CDT by Shania Sim M.D. [email or web address] [id number]
[2024-09-27 20:54] LABS: Iron 13 ug/dL (37-145); Percent Saturation 5.1 % (20-50); Thyroid Stimulating Hormone 0.65 uIU/mL (0.27-4.20); Total Iron Binding Capacity 253 mcg/dl; Unsaturated Iron Binding 240 ug/dL (112-347); Vitamin B12 415 pg/mL (232-1245)
--- NOTE | 2024-09-27 20:55 | ECG_ITS ---
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 Measurements Intervals [place] Rate: 74 P: 83 ME: 165 QRS: 86 QRSD: 86 T: 73 QT: 372 QTc: 414 Interpretive Statements SINUS RHYTHM POSSIBLE LEFT ATRIAL ENLARGEMENT [-0.1mV P-WAVE IN V1/V2] Compared to ECG 09/27/2024 18:35:47 No significant changes Electronically Signed On 09-28-2024 12:39:43 CDT by Shania Sim M.D. [id number] [id number]
[2024-09-27] MEDS: budesonide 0.5 mg/2 mL Neb INHALATION (20:57)
[2024-09-27 21:32] LABS: Troponin 5 6HR 6.74 ng/L (0-10); Troponin 5 6HR Delta -2.26 ng/L (0-12)
[2024-09-27 22:02] LABS: Estmated Average Glucose 94; Hemoglobin A1C 4.9 % (4.0-6.0)
[2024-09-27] MEDS: pantoprazole 40 mg SDV IVP (22:18)
[2024-09-27] MEDS: heparin 5,000 unit/mL INJ 1 mL 5000 UNIT SUBCUT (22:18)
[2024-09-27] MEDS: methylPREDNISolone sod succ 40 mg/mL INJ IVP (22:18)
[2024-09-27] MEDS: cefTRIAXone 1,000 mg SDV 1000 MG IVP (22:18)
[2024-09-27] MEDS: azithromycin 250 mg Tablet 500 MG PO (22:37)
[2024-09-27 23:01] LABS: MRSA PCR OZH (swab) NOT DETECTED (Not Detecte)
[2024-09-27 23:39] LABS: Adenovirus Not Detected (NOT DETECT); Chlamydia Pneumoniae Not Detected (NOT DETECT); Coronavirus 229E,HKU1,NL63,OC4 Not Detected (NOT DETECT); Human Metapneumovirus Not Detected (NOT DETECT); Human Rhinovirus/Enterovirus Detected (NOT DETECT); Influenza A Not Detected (NOT DETECT); Influenza A H1 Not Detected (NOT DETECT); Influenza A H1-2009 Not Detected (NOT DETECT); Influenza A H3 Not Detected (NOT DETECT); Influenza B Not Detected (NOT DETECT); Mycoplasma Pneumoniae Not Detected (NOT DETECT); Parainfluenza Virus Type 1 Not Detected (NOT DETECT); Parainfluenza Virus Type 2 Not Detected (NOT DETECT); Parainfluenza Virus Type 3 Not Detected (NOT DETECT); Parainfluenza Virus Type 4 Not Detected (NOT DETECT); Respiratory Syncytial Virus A Not Detected (NOT DETECT); Respiratory Syncytial Virus B Not Detected (NOT DETECT); SARS-COV-2 Not Detected (NOT DETECT)
[2024-09-28] VITALS (13 sets, daily range): BP systolic 88–98; BP diastolic 51–62; PULSE 69–93; RESP 16–20; TEMP 36.4–36.7; O2SAT 93–100
[2024-09-28] MEDS: methylPREDNISolone sod succ 40 mg/mL INJ IVP ×3 (04:14→17:33)
[2024-09-28 04:18] LABS: Basophils % 0.2 %; Hematocrit 30.8 % (36-47); Lymphocytes # 0.7 10^3/uL (0.8-4.8); Lymphocytes % 5.2 %; Mean Corpuscular HGB Conc 31.5 g/dL (30-55); Mean Corpuscular Hemoglobin 28.8 pg (27-33); Mean Corpuscular Volume 91.4 fl (85-98); Mean Platelet Volume 9.8 fL (7.4-10.4); Monocytes # 0.2 10^3/uL (0.2-0.9); Monocytes % 1.6 %; Neutrophils # 12.62 10^3/uL (1.8-7.7); Neutrophils % 92.4 %; Nucleated Red Blood Cells % 0 %; Platelet Count 263 10^3/cmm (157-399); Red Blood Count 3.37 10^6/uL (3.85-5.65); Red Cell Distribution Width 17.4 % (12.1-15.1); White Blood Count 13.66 10^3/uL (3.29-11.43)
[2024-09-28 04:42] LABS: Alanine Aminotransferase < 5 U/L (0-33); Albumin Level 2.8 g/dL (3.5-5.2); Alkaline Phosphatase 69 U/L (35-105); Anion Gap 13.2 (5-19); Aspartate Amino Transferase 8 U/L (0-32); Blood Urea Nitrogen 15 mg/dL (8-23); Calcium 8.6 mg/dL (8.5-10.5); Carbon Dioxide 21 mmol/L (22-29); Chloride 109 mmol/L (98-107); Creatinine Clr Calc Pharmacy 51.5145; Globulin 3.4 g/dL (1.3-4.6); Glomerular Filtration Rate 101.3 mL/min (90-130); Glucose 125 mg/dL (65-115); Magnesium 1.9 mg/dL (1.7-2.3); Osmolality Calculated 292 mOsm/kg (285-295); Phosphorus 2.7 mg/dL (2.5-4.5); Potassium 3.2 mmol/L (3.5-5.1); Sodium 140 mmol/L (136-145); Total Bilirubin 0.2 mg/dL (0.15-1.2); Total Protein 6.2 g/dL (6.6-8.7)
[2024-09-28 04:44] LABS: Chol HDL Ratio 2.81 mg/dL (0.0-4.40); Cholesterol 104 mg/dL (0-200); HDL Cholesterol 37 mg/dL (60-100); LDL Cholesterol Calculated 57 mg/dL (50-129); LDL HDL Ratio 1.54 RATIO (0.00-3.22); Triglycerides 51 mg/dL (0-150)
[2024-09-28 04:47] LABS: Procalcitonin 0.18 ng/mL (0-0.5)
[2024-09-28 06:10] LABS: Folate Level 5.5 ng/mL (4.8-37.3)
[2024-09-28] MEDS: budesonide 0.5 mg/2 mL Neb INHALATION ×2 (07:52→20:42)
[2024-09-28] MEDS: ipratropium-albuterol 3 mL Neb INHALATION ×4 (07:53→20:42)
[2024-09-28] MEDS: docusate sodium 100 mg Capsule PO ×2 (09:28→17:32)
[2024-09-28] MEDS: heparin 5,000 unit/mL INJ 1 mL 5000 UNIT SUBCUT ×2 (09:28→20:34)
--- NOTE | 2024-09-28 12:03 | P.PN_ITS ---
Subjective 2 Subjective: States feeling a lot better. Denies any nausea, vomiting. Currently on 1 L of oxygen supplementation. Able to Ambulate in room without difficulty in breathing more than usual. Vitals/I&O/Wt Last Vital Signs Temp 98.1 F 09/28/24 11:41 Pulse 93 09/28/24 11:41 Resp 17 09/28/24 11:41 BP 91/54 09/28/24 11:41 Pulse Ox 97 09/28/24 11:41 O2 Del Method Nasal Cannula 09/28/24 11:41 O2 Flow Rate 1 09/28/24 11:15 09/27/24 09/28/24 09/28/24 22:59 06:59 14:59 Intake Total 1000 / 1000 240 / 240 Balance 1000 / 1000 240 / 240 Weight last 48 hrs Weight 35.108 kg Weight 33.566 kg Weight 33.566 kg Physical Exam 2 Narrative: General: No acute distress, AO x3 HEENT: PERRLA, pupils bilaterally equal and reactive Chest: Bilateral bronchial breath sounds all over lung owen with occasional rhonchi more so on the left than right CVS: S1-S2 regular, no murmurs, no tachycardia, no gallops, no rubs Abdomen: Soft, nontender, no organomegaly, bowel sounds present Neuro: No focal deficits, no facial deformity, AO x3, power 5/5 in all limbs Data 09/28/24 03:46 09/28/24 03:46 Micro: Microbiology 09/27/24 18:00 Bacterial Antigens - Final Urine Kidney A&P Assessment and plan (1) Acute on chronic hypoxic respiratory failure: In setting of COPD exacerbation due to rhinovirus infection. Uses as needed oxygen. Currently on 2 L. Can supplementation keeping saturation over 88%. Pending sputum culture, negative MRSA swab, respiratory viral panel positive for rhinovirus. X-ray shows resolving pneumonia. Continue with IV ceftriaxone and oral azithromycin. De-escalate as per culture sensitivities. (2) COPD exacerbation: Wean Solu-Medrol 40 mg twice daily. Pulmicort twice daily, DuoNeb every 6 hours. (3) Rhinovirus infection: Plan Full code Regular diet Protonix for Pediaflor access Heparin for DVT prophylaxis. PDMP PDMP Reviewed: Not Reviewed Attestations 2 Medical Necessity Statement*: Requires further hospitalization for management of COPD exacerbation leading to hypoxic respiratory failure in setting of rhinovirus infection Diagnoses Acute on chronic hypoxic respiratory failure J96.21 COPD exacerbation J44.1 Rhinovirus infection B34.8
[2024-09-28] MEDS: cefTRIAXone 1,000 mg SDV 1000 MG IVP (20:34)
[2024-09-28] MEDS: pantoprazole 40 mg SDV IVP (20:34)
[2024-09-28] MEDS: azithromycin 250 mg Tablet 500 MG PO (20:34)
[2024-09-29] VITALS (7 sets, daily range): BP systolic 95–111; BP diastolic 54–72; PULSE 77–89; RESP 16–18; TEMP 36.4–36.6; O2SAT 90–96
[2024-09-29 03:41] LABS: Basophils # 0.1 10^3/uL (0.0-0.1); Basophils % 0.2 %; Hematocrit 29.6 % (36-47); Lymphocytes # 0.8 10^3/uL (0.8-4.8); Lymphocytes % 3.4 %; Mean Corpuscular HGB Conc 31.4 g/dL (30-55); Mean Corpuscular Hemoglobin 28.7 pg (27-33); Mean Corpuscular Volume 91.4 fl (85-98); Mean Platelet Volume 9.4 fL (7.4-10.4); Monocytes # 0.9 10^3/uL (0.2-0.9); Neutrophils # 20.95 10^3/uL (1.8-7.7); Neutrophils % 91.6 %; Nucleated Red Blood Cells % 0 %; Platelet Count 275 10^3/cmm (157-399); Red Blood Count 3.24 10^6/uL (3.85-5.65); Red Cell Distribution Width 17.8 % (12.1-15.1)
[2024-09-29 04:17] LABS: Alanine Aminotransferase < 5 U/L (0-33); Albumin Level 2.7 g/dL (3.5-5.2); Alkaline Phosphatase 78 U/L (35-105); Anion Gap 17.3 (5-19); Aspartate Amino Transferase 11 U/L (0-32); Blood Urea Nitrogen 12 mg/dL (8-23); Calcium 8.8 mg/dL (8.5-10.5); Carbon Dioxide 19 mmol/L (22-29); Chloride 106 mmol/L (98-107); Globulin 3.5 g/dL (1.3-4.6); Glomerular Filtration Rate 101.3 mL/min (90-130); Glucose 105 mg/dL (65-115); Osmolality Calculated 288 mOsm/kg (285-295); Potassium 3.3 mmol/L (3.5-5.1); Sodium 139 mmol/L (136-145); Total Bilirubin 0.2 mg/dL (0.15-1.2); Total Protein 6.2 g/dL (6.6-8.7)
--- NOTE | 2024-09-29 07:36 | PM.DCS ---
Discharge Providers Date of Admission: 09/27/24 16:57 Date of Discharge: September 29, 2024 Attending Provider at Admission: Ramirez Weiss MD Attending Provider at Discharge: Ramirez Weiss MD Primary Care Provider: REAL Quinn Diagnoses at Discharge Discharge Diagnosis (1) Acute on chronic hypoxic respiratory failure: Status: Acute (2) COPD exacerbation: Status: Acute (3) Rhinovirus infection: Status: Acute Reason for Visit Reason for Visit: sob; chest pain Hospital Course Hospital Course Allison Peoples is a 64 year old female who is a current smoker, history of COPD on as needed oxygen after in hospital in June when she was treated for right lower lobe pneumonia presents to the ER with difficulty in breathing worsening for last 2 to 3 days. Patient has been complaining of runny nose and increased cough for last 1 week. Denies any nausea, vomiting, headache. Denies any sick contacts. Continues to smoke. States she has COPD exacerbation at least 4-5 times a year. In the ER was found to be hypoxic requiring up to 2 to 3 L of oxygen supplementation She was admitted to the hospital further evaluation management of COPD exacerbation in setting of rhinovirus infection. She started on nebulization treatment along with steroids. She responded well to the treatment. She is discharged in hemodynamically stable condition on oral Levaquin for next 7 days, prednisone taper along with nebulization treatment. She is to follow-up with a primary care provider within next 1 week. Physical Exam Narrative: General: No acute distress, AO x3 HEENT: PERRLA, pupils bilaterally equal and reactive Chest: Bilateral bronchial breath sounds all over lung owen with occasional rhonchi more so on the left than right CVS: S1-S2 regular, no murmurs, no tachycardia, no gallops, no rubs Abdomen: Soft, nontender, no organomegaly, bowel sounds present Neuro: No focal deficits, no facial deformity, AO x3, power 5/5 in all limbs Discharge Data Studies Completed and Pending Completed Studies During Hospitalization Category Date Time Status XR chest 1V portable [id number] Stat Exams 09/27/24 14:25 Completed Pending at discharge Category Date Time Status Complete Blood Count w/Auto AM LABS Lab 09/30/24 04:00 Ordered Comprehensive Metabolic Panel AM LABS Lab 09/30/24 04:00 Ordered Magnesium AM LABS Lab 09/30/24 04:00 Ordered Phosphorus AM LABS Lab 09/30/24 04:00 Ordered Sputum Culture and Gram Stain Stat Lab 09/27/24 17:00 Uncollected Radiology Impressions Chest X-Ray 09/27/24 14:25 IMPRESSION: 1. Nonspecific bilateral lower lung opacity is decreased since 08/19/2024. Probable resolving infection or edema. A recurrent acute process is not excluded. 2. Large lung volumes consistent with COPD. Microbiology 09/27/24 18:00 Urine Kidney Bacterial Antigens - Final Laboratory Results WBC 22.90 10^3/uL (3.29-11.43) H 09/29/24 03:15 RBC 3.24 10^6/uL (3.85-5.65) L 09/29/24 03:15 Hgb 9.30 g/dL (11.27-16.99) L 09/29/24 03:15 Hct 29.6 % (36-47) L 09/29/24 03:15 MCV 91.4 fl (85-98) 09/29/24 03:15 MCH 28.7 pg (27-33) 09/29/24 03:15 MCHC 31.4 g/dL (30-55) 09/29/24 03:15 RDW 17.8 % (12.1-15.1) H 09/29/24 03:15 Plt Count 275 10^3/cmm (157-399) 09/29/24 03:15 MPV 9.4 fL (7.4-10.4) 09/29/24 03:15 Neut % (Auto) 91.6 % 09/29/24 03:15 Lymph % (Auto) 3.4 % 09/29/24 03:15 [place] % (Auto) 4.0 % 09/29/24 03:15 Eos % (Auto) 0.0 % 09/29/24 03:15 Baso % (Auto) 0.2 % 09/29/24 03:15 Neut # (Auto) 20.95 10^3/uL (1.8-7.7) H 09/29/24 03:15 Lymph # (Auto) 0.8 10^3/uL (0.8-4.8) 09/29/24 03:15 [place] # (Auto) 0.9 10^3/uL (0.2-0.9) 09/29/24 03:15 Eos # (Auto) 0.0 10^3/uL (0.0-0.8) 09/29/24 03:15 Baso # (Auto) 0.1 10^3/uL (0.0-0.1) 09/29/24 03:15 Nucleated RBC % (auto) 0 % 09/29/24 03:15 Nucleated RBCs # 0.0 /100WBC 09/29/24 03:15 D-Dimer 1.56 ug/mLFEU (0-0.59) H 09/27/24 14:35 Sodium 139 mmol/L (136-145) 09/29/24 03:15 Potassium 3.3 mmol/L (3.5-5.1) L 09/29/24 03:15 Chloride 106 mmol/L (98-107) 09/29/24 03:15 Carbon Dioxide 19 mmol/L (22-29) L 09/29/24 03:15 Anion Gap 17.3 (5-19) 09/29/24 03:15 BUN 12 mg/dL (8-23) 09/29/24 03:15 Creatinine 0.6 mg/dL (0.5-0.9) 09/29/24 03:15 GFR Calculation 101.3 mL/min (90-130) 09/29/24 03:15 Glucose 105 mg/dL (65-115) 09/29/24 03:15 Estimat Average Glucose 94 09/27/24 14:35 Hemoglobin A1c 4.9 % (4.0-6.0) 09/27/24 14:35 Calculated Osmolality 288 mOsm/kg (285-295) 09/29/24 03:15 Lactic Acid 1.0 mmol/L (0.5-2.2) 09/27/24 14:35 Calcium 8.8 mg/dL (8.5-10.5) 09/29/24 03:15 Phosphorus 4.0 mg/dL (2.5-4.5) 09/29/24 03:15 Magnesium 2.0 mg/dL (1.7-2.3) 09/29/24 03:15 Iron 13 ug/dL (37-145) L 09/27/24 14:35 TIBC 253 mcg/dl 09/27/24 14:35 % Saturation 5.1 % (20-50) L 09/27/24 14:35 Unsat Iron Binding 240 ug/dL (112-347) 09/27/24 14:35 Total Bilirubin 0.2 mg/dL (0.15-1.2) 09/29/24 03:15 AST 11 U/L (0-32) 09/29/24 03:15 ALT < 5 U/L (0-33) 09/29/24 03:15 Alkaline Phosphatase 78 U/L (35-105) 09/29/24 03:15 Troponin T Baseline 9 ng/L (0-10) 09/27/24 14:35 Troponin T 120 Minute 8.56 ng/L (0-10) 09/27/24 16:22 Delta Troponin T -0.44 ABS# (0-10) L 09/27/24 16:22 Troponin T Hi Sens 6Hr 6.74 ng/L (0-10) 09/27/24 20:19 Troponin T Hi Sens 6Hr Delta -2.26 ng/L (0-12) L 09/27/24 20:19 Total Protein 6.2 g/dL (6.6-8.7) L 09/29/24 03:15 Albumin 2.7 g/dL (3.5-5.2) L 09/29/24 03:15 Globulin 3.5 g/dL (1.3-4.6) 09/29/24 03:15 Triglycerides 51 mg/dL (0-150) 09/28/24 03:46 Cholesterol 104 mg/dL (0-200) 09/28/24 03:46 LDL Cholesterol, Calc 57 mg/dL (50-129) 09/28/24 03:46 HDL Cholesterol 37 mg/dL (60-100) L 09/28/24 03:46 LDL/HDL Ratio 1.54 RATIO (0.00-3.22) 09/28/24 03:46 Cholesterol/HDL Ratio 2.81 mg/dL (0.0-4.40) 09/28/24 03:46 Vitamin B12 415 pg/mL (232-1245) 09/27/24 14:35 Folate 5.5 ng/mL (4.8-37.3) 09/28/24 03:46 Procalcitonin 0.18 ng/mL (0-0.5) 09/28/24 03:46 TSH 0.65 uIU/mL (0.27-4.20) 09/27/24 14:35 Nasal MRSA (PCR) Not detected (Not Detecte) 09/27/24 20:45 Adenovirus (PCR) Not detected (NOT DETECT) 09/27/24 20:45 C. pneumoniae DNA (PCR) Not detected (NOT DETECT) 09/27/24 20:45 Coronavirus 229E (PCR) Not detected (NOT DETECT) 09/27/24 20:45 Human Metapneumovir PCR Not detected (NOT DETECT) 09/27/24 20:45 Influenza A (H1) PCR Not detected (NOT DETECT) 09/27/24 20:45 Influ A (H1/09) PCR Not detected (NOT DETECT) 09/27/24 20:45 Influenza A (H3) PCR Not detected (NOT DETECT) 09/27/24 20:45 Influenza Type A (PCR) Not detected (NOT DETECT) 09/27/24 20:45 Influenza Type B (PCR) Not detected (NOT DETECT) 09/27/24 20:45 M. pneumoniae (PCR) Not detected (NOT DETECT) 09/27/24 20:45 Parainfluenza 1 (PCR) Not detected (NOT DETECT) 09/27/24 20:45 Parainfluenza 2 (PCR) Not detected (NOT DETECT) 09/27/24 20:45 Parainfluenza 3 (PCR) Not detected (NOT DETECT) 09/27/24 20:45 Parainfluenza 4 (PCR) Not detected (NOT DETECT) 09/27/24 20:45 RSV Type A (PCR) Not detected (NOT DETECT) 09/27/24 20:45 RSV Type B (PCR) Not detected (NOT DETECT) 09/27/24 20:45 Entero/Rhino (PCR) Detected (NOT DETECT) A 09/27/24 20:45 SARS-CoV-2 (PCR) Not detected (NOT DETECT) 09/27/24 20:45 Vitals Last Vital Signs Temp 97.7 F 09/29/24 04:22 Pulse 89 09/29/24 05:18 Resp 17 09/29/24 04:22 BP 98/60 09/29/24 04:22 Pulse Ox 96 09/29/24 04:22 O2 Del Method Room Air 05/18/25 20:40 O2 Flow Rate 1 09/28/24 15:31 Discharge Plan Discharge Patient Disposition: Home Condition: Stable Prescriptions: New ipratropium-albuterol 0.5 mg-3 mg(2.5 mg base)/3 mL Solution For Nebulization 3 ml inhalation QID.RESPIRATORY 14 Days Qty: 180 0RF prednisone 10 mg tablet See Taper PO DIRECTED Qty: 42 0RF Taper: predniSONE 60-10 60 mg Daily for 2 Days and 0 Hour 50 mg Daily for 2 Days and 0 Hour 40 mg Daily for 2 Days and 0 Hour 30 mg Daily for 2 Days and 0 Hour 20 mg Daily for 2 Days and 0 Hour 10 mg Daily for 2 Days and 0 Hour Rx Instructions: see taper instructions levofloxacin 750 mg tablet 750 mg PO Q24H 7 Days Qty: 7 0RF Continued Breztri Aerosphere 160-9-4.8 mcg/actuation HFA aerosol inhaler 2 inh inhalation BID Qty: 10.7 3RF Rx Instructions: stop Trelegy pantoprazole 20 mg tablet,delayed release (DR/EC) 20 mg PO DAILY 30 Days Qty: 30 1RF budesonide 0.5 mg/2 mL suspension for nebulization 0.5 mg inhalation BID Qty: 60 0RF albuterol sulfate 90 mcg/actuation HFA aerosol inhaler 2 puff inhalation Q6H PRN (Reason: bronchospasm) Qty: 8.5 5RF nitroglycerin 0.4 mg tablet, sublingual 0.4 mg sublingual Q5M PRN (Reason: chest pain) Qty: 25 2RF Rx Instructions: do not exceed 3 doses per episode ergocalciferol (vitamin D2) 1,250 mcg (50,000 unit) capsule 1,250 mcg PO .monthly Qty: 1 5RF aspirin [Adult Low Dose Aspirin] 81 mg tablet,delayed release (DR/EC) 81 mg PO DAILY Qty: 90 0RF ibuprofen [Advil] 200 mg Tablet 800 mg PO Q6H PRN (Reason: Fever Or Pain) Discharge Orders: Discharge Order (Routine); Ordered 09/29/24 Ordered By: Ramirez Weiss Referrals: Irina Caruso, CONSULTANT INTERN-C [Primary Care Provider, [facility]] - 10/09/24 9:40 am Referral Note: Discharge Diet: Cardiac Discharge Activity: Resume usual activity and Increase activity as tolerated Patient Instructions: Prednisone (By mouth), Levofloxacin (By mouth) (Levaquin, Levaquin Leva-leela), COPD Stoplight, Opioid Safety Activity Restrictions/Additional Instructions: Try to quit smoking or decrease smoking as much as you can. Take Levaquin which is the antibiotic for next 7 days. Take prednisone taper as prescribed. Take nebulization with DuoNeb 3-4 times a day for next 2 weeks along with Pulmicort twice daily. Discharge Attestations Time Spent in Discharge Care*: greater than 30 min Specific Discharge Activities: educating patient, discussing with pcp/other providers, discussing with residential case manager/social workers/dc planners, documenting/other paperwork and evaluating patient/reviewing data Status at Discharge: Cognitive status at discharge: cognitively intact, Behavioral status at discharge: cooperative, Functional status at discharge: independent ambulation, Overall status at discharge: patient is back to baseline Quality Metrics Clinical Quality Measures [ No reported AMI, CVA or VTE this stay] Coding Level of Care Code 01505 Total time (in minutes) for Discharge: 65 Diagnoses Acute on chronic hypoxic respiratory failure J96.21 COPD exacerbation J44.1 Rhinovirus infection B34.8
[2024-09-29] MEDS: ipratropium-albuterol 3 mL Neb INHALATION (08:56)
[2024-09-29] MEDS: budesonide 0.5 mg/2 mL Neb INHALATION (08:56)
--- NOTE | 2024-09-29 09:27 | PC.SOCIAL ---
Pt did not qualify for O2 while walking. Heather RT said pt wears O2 at HS only through [employer]. She did not qualify for O2 while awake & walking. No other needs noted for CM.
[2024-09-29] MEDS: docusate sodium 100 mg Capsule PO (09:48)
[2024-09-29] MEDS: methylPREDNISolone sod succ 40 mg/mL INJ IVP (09:49)
[2024-09-29] MEDS: heparin 5,000 unit/mL INJ 1 mL 5000 UNIT SUBCUT (09:49)
--- NOTE | 2024-09-29 10:12 | PC.CHAP ---
Pastoral Care Encounter/Spiritual Assessment Type of Contact [] Declined date night sitter visit [] Patient/Family/Request visit [] Outpatient visit [] Follow-up visit [] Physician referral [] Code/Alert [x] Routine visit [] Staff referral [] Actively dying [] Patient sleeping [] Family support [] [] Out of room [] Palliative care [] [] Receiving care in room [] Pre-surgical visit [] Trauma [] Long length of stay [] ICU visit [] Other: Relational/Emotional Strength [] Patient feels connected with others/family/visitors/staff [] Distress [] Loneliness/isolation [] Abandonment Spirituality of Patient [] Person of Jojo [] Attends Mormon of their Jojo [] Believes in Prayer [] Reads Bible or Yazidism materials [] There are Spiritual issues to be addressed Traffic Signal Repairer Interventions [x] Prayer [] Active listening [] Non-anxious presence [] Spiritual/emotional support [] Crisis/trauma care [] Spiritual counseling [] Bereavement support [] Provided bereavement packet [] Provided Bible/devotional materials [] Provided toy/stuffed animal, coloring book to patient or family member [] Provided Communion [] Anointing/[place] [] Salvation [] Completed spiritual assessment [] Other: Impact on Illness or Injury [] Angry [] Fearful [] Anxious [] Often cries [] Exhaustion [] Unable to work [] Unable to attend yazidi [] Unable to walk/stand [] Unable to read [] Unable to drive [] Unable to eat/drink [] Unable to sleep [] Unable to be with family [] Patient intubated [] Other: Summary precaution Time spent with patient
== END 2024-09-29 10:00 | disposition home or self-care (01) ==
LOC: ER 17:39 → MEDSURG 09-28 04:31
PROVIDERS: Admitting Provider Student in an Organized Health Care Education/Training Program; Emergency Provider Family Medicine; PCP Nurse Practitioner; Visit Provider Student in an Organized Health Care Education/Training Program
DX: J44.1 Chronic obstructive pulmonary disease with (acute) exacerbation (principal); J96.21 Acute and chronic respiratory failure with hypoxia; B34.8 Other viral infections of unspecified site; K21.9 Gastro-esophageal reflux disease without esophagitis; Z79.82 Long term (current) use of aspirin; F17.210 Nicotine dependence, cigarettes, uncomplicated; Z99.81 Dependence on supplemental oxygen; B02.29 Other postherpetic nervous system involvement
CPT/HCPCS: 36415; 71045; 80053; 80061; 82607; 82746; 83036; 83540; 83550; 83605; 83735; 84100; 84145; 84443; 84484; 85025; 85378; 86403; 87486; 87581; 87633; 93005; 94640; 94760; 96372; 96374; 96375; 96376; 99285; G0378; J0696; J1644; J2470; J2919; J7030; J7626; J9999; Q0144

== ENCOUNTER 2024-10-10 08:59 | Outpatient (CLI) | payer BC, SELFPAY ==
--- NOTE | 2024-10-10 09:08 | FL_ITS ---
WS: [id number] Barium swallow and esophagram, 10/10/2024 Clinical Data: PARALYSIS OF VOCAL CORDS AND LARYNX, DYSPHAGIA Comparison: Esophagram, 06/17/2015. Fluoroscopy time: 1min [id number] # of spot films: 32 Findings: The patient swallowed the thick and thin barium, and it flowed through the hypopharynx without hesitation. No stricture, mass, polyp or erosion was seen. No aspiration or penetration occurred. The barium entered the esophagus and there was poor motility throughout. The esophagus was narrow in its entire length. There is minimal surface irregularity. No hiatal hernia, reflux, polyp, mass or ulcer was noted. No reflux was present. The barium passed normally into the stomach. FL/FL barium swallow [id number] Impression: 1. Poor esophageal motility. 2. Narrowing of the entire esophagus which could be secondary to chronic reflux , infectious disease or less likely a diffuse superficial carcinoma.
== END 2024-10-10 09:00 | disposition home or self-care (01) ==
LOC: RAD 09:00
PROVIDERS: PCP Nurse Practitioner; Visit Provider Otolaryngology
DX: J38.01 Paralysis of vocal cords and larynx, unilateral (principal); R49.0 Dysphonia; R13.10 Dysphagia, unspecified; K22.4 Dyskinesia of esophagus; K22.2 Esophageal obstruction
CPT/HCPCS: 74220

== ENCOUNTER 2024-10-14 09:55 | Outpatient (CLI) | payer BC, SELFPAY ==
--- NOTE | 2024-10-14 10:03 | FL_ITS ---
WS: [id number] FL barium swallow modifd [id number] REASON FOR EXAM: Other dysphagia FLUOROSCOPY TIME: 5min [id number] # OF SPOT FILMS: 0 TECHNIQUE: Examination was supervised by the speech therapy department. Patient was examined in the sitting upright and standing AP projections. The swallowing of varying consistencies of barium was monitored fluoroscopically and video recorded. FINDINGS: No penetration or aspiration. The barium tablet lodged at the level of the aortic arch. The barium tablet lodged at the level of the aortic arch. It is noted that the patient's thoracic esophagus was diffusely narrowed and with very weak peristalsis. FL/FL barium swallow modifd [id number] IMPRESSION: Diffusely narrowed and somewhat rigid appearing esophagus which did not allow p assage of the barium tablet as described above. The patient's recent esophagram (10/10/2024) was reviewed and a diffuse narrowin g is noted which has very irregular margins enlarged folds or varices. A barium swallow on 06/17/2015 shows a similar abnormality. Possibly the esophagus is mor e narrowed at this time. The esophagus below the level of the aortic arch shows significant mural thickening on a CT scan of the chest 06/30/2024. There is mil kraig mural thickening in the more proximal thoracic esophagus. A CT scan of the abdomen and pelvis 05/17/2023 demonstrates no varices. The etiology of these findings is uncertain. Presumably a neoplasm would not have existed over 9 years. Difficult to imagine a reflux or infectious etiology extending over 9 years. En doscopy may be appropriate.
== END 2024-10-14 09:56 | disposition home or self-care (01) ==
PROVIDERS: PCP Nurse Practitioner; Visit Provider Otolaryngology
DX: J38.01 Paralysis of vocal cords and larynx, unilateral (principal); R49.0 Dysphonia; R13.10 Dysphagia, unspecified; K22.9 Disease of esophagus, unspecified
CPT/HCPCS: 74230; 92611

== ENCOUNTER 2024-11-03 10:43 | Outpatient (CLI) | payer BC, SELFPAY ==
[2024-11-03 12:19] LABS: Basophils # 0.1 10^3/uL (0.0-0.1); Basophils % 0.7 %; Hematocrit 38.4 % (36-47); Lymphocytes # 2.1 10^3/uL (0.8-4.8); Lymphocytes % 22.8 %; Mean Corpuscular HGB Conc 30.7 g/dL (30-55); Monocytes # 0.7 10^3/uL (0.2-0.9); Neutrophils # 6.17 10^3/uL (1.8-7.7); Neutrophils % 68.1 %; Nucleated Red Blood Cells % 0 %; Platelet Count 459 10^3/cmm (157-399); Red Blood Count 4.22 10^6/uL (3.85-5.65); Red Cell Distribution Width 16.3 % (12.1-15.1); White Blood Count 9.07 10^3/uL (3.29-11.43)
[2024-11-03 12:42] LABS: Alanine Aminotransferase 6 U/L (0-33); Albumin Level 3.3 g/dL (3.5-5.2); Alkaline Phosphatase 73 U/L (35-105); Anion Gap 17.9 (5-19); Aspartate Amino Transferase 12 U/L (0-32); Blood Urea Nitrogen 11 mg/dL (8-23); Calcium 9.1 mg/dL (8.5-10.5); Carbon Dioxide 19 mmol/L (22-29); Chloride 105 mmol/L (98-107); Globulin 4.2 g/dL (1.3-4.6); Glucose 83 mg/dL (65-115); Osmolality Calculated 285 mOsm/kg (285-295); Potassium 3.9 mmol/L (3.5-5.1); Sodium 138 mmol/L (136-145); Total Bilirubin 0.2 mg/dL (0.15-1.2); Total Protein 7.5 g/dL (6.6-8.7)
== END 2024-11-03 10:44 | disposition home or self-care (01) ==
PROVIDERS: PCP Nurse Practitioner; Visit Provider Specialist
DX: Z01.818 Encounter for other preprocedural examination (principal)
CPT/HCPCS: 36415; 80053; 85025

== ENCOUNTER → 2024-11-04 10:54 | Outpatient (BNVA) | payer BC, SELFPAY | PROVIDERS: PCP Nurse Practitioner; Visit Provider Internal Medicine | DX: Z01.810 Encounter for preprocedural cardiovascular examination (principal) | CPT/HCPCS: 93005 ==

== ENCOUNTER 2024-11-11 12:00 | Observation (INO) | payer BC, SELFPAY ==
[2024-11-11] VITALS (38 sets, daily range): BP systolic 86–128; BP diastolic 60–76; PULSE 72–99; RESP 16–29; TEMP 36.7; O2SAT 92–100; BMI 11.4
--- NOTE | 2024-11-11 09:35 | ANES.PREANE2 ---
Pre-Anesthetic Assessment Height/Weight: Height 5 ft 6 in Weight 71 lb Temp Pulse Resp BP Pulse Ox O2 Del Method 98.1 F 99 17 104/60 96 Room Air 11/11/24 09:01 11/11/24 09:01 11/11/24 09:01 11/11/24 09:01 11/11/24 09:01 11/11/24 09:02 Preop Diagnosis: Thyroid nodules Operation Date: 11/11/24 10:20 Proposed Procedures p Hemithyroidectomy Partial Right Thyroid Lobectomy(Right) - Matias Saenz MD s With or without Isthmusectomy(Right) - Matias Saenz MD Was Beta Emperatriz taken within 24 hours: N/A Was Clonidine taken within 24 hours: N/A Last intake: Intake Last Liquid Date 11/10/24 Last Liquid Time 23:59 Last Solid Date 11/10/24 Last Solid Time 21:30 Social Tobacco and No alcohol Exam alert, oriented x 3, clear to auscultation bilaterally and regular rate & rhythm Airway Submandibular: within normal limits Cervical ROM: within normal limits Mallampati: Class III Dentition: false Anesthetic Plan ASA status: 3 Anesthesia: General Other: No prior issues with anesthesia NPO since yesterday evening History of COPD, chronic smoker. Uses 2 L O2 at night Denies any cardiac issues Patient is extremely small, BMI of 11.5 Labs 11/03/2024 reviewed and acceptable for procedure today EKG showing sinus rhythm with right atrial enlargement Plan for GETA Medications/Allergies Home Medications ?Medication ?Instructions ?Recorded ?Confirmed ?Last Taken ?Type aspirin 81 mg tablet,delayed 81 mg PO DAILY #90 tabs 08/26/20 11/10/24 11/09/24 Rx release (Adult Low Dose Aspirin) albuterol sulfate 90 mcg/actuation 2 puff inhalation Q6H PRN 10/24/23 11/10/24 11/09/24 Rx aerosol inhaler bronchospasm #8.5 grams budesonide 160 mcg-glycopyr 9 2 inh inhalation BID #10.7 grams 07/09/24 11/11/24 11/11/24 Rx mcg-formot 4.8 mcg/actuation HFA inhaler (Breztri Aerosphere) nitroglycerin 0.4 mg sublingual 0.4 mg sublingual Q5M PRN chest 08/07/24 11/10/24 Unknown Rx tablet pain #25 tabs budesonide 0.5 mg/2 mL suspension 0.5 mg (2 mL) inhalation BID #60 mL 08/19/24 11/10/24 2 Days Ago Rx for nebulization ~11/08/24 cholecalciferol (vitamin D3) 10 10 mcg PO BID #52 mL 10/09/24 11/10/24 11/10/24 Rx mcg/mL (400 unit/mL) oral drops ferrous sulfate 15 mg iron (75 1 ml PO BID #50 mL 10/09/24 11/10/24 11/10/24 Rx mg)/mL oral drops lansoprazole 30 mg delayed 30 mg PO DAILY #30 tabs 10/15/24 11/10/24 11/10/24 Rx release,disintegrating tablet Allergies Allergy/AdvReac Type Severity Reaction Status Date / Time morphine Allergy ALGY-Hives Verified 11/10/24 10:28 codeine AdvReac ADR-Nausea Verified 11/10/24 10:28 Current Medications Generic Name Dose Route Start Last Admin Trade Name Freq PRN Reason Stop Dose Admin Sodium Chloride 1,000 mls @ 15 mls/hr 11/11/24 08:52 11/11/24 09:15 Sodium Chloride 0.9% IV 11/12/24 08:51 15 mls/hr .Q24H PRN Administration COLONOSCOPY FLUIDS PFSH Anesthesia Medical History (Updated 10/09/24 @ 10:27 by REAL Quinn) Low serum iron Neuralgia, post-herpetic COPD (chronic obstructive pulmonary disease) Alveolar emphysema of lung Surgical History History of hysterectomy History of cholecystectomy Family History Other CAD (coronary artery disease) COPD (chronic obstructive pulmonary disease) Cancer Denies family history of Bleeding disorder Social History Smoking and tobacco/nicotine status: current every day tobacco/nicotine user (1 ppd) cigarettes Packs smoked per day: 1 Years cigarettes smoked: 40 [ Other cigarette details: started at age 21 years] Second hand smoke exposure: Yes Alcohol intake: never Substance/Drug Use: never Adopted: No Caregiver/support person: No Lives independently: Yes Household members: spouse Marital status: Number of children: 3 service: No Current occupational status: employed Current occupation: [employer] Do you think of yourself as: Straight/Heterosexual Current gender identity: Female Data Anesthesia Cardiac Studies: Sestamibi Stress Test (Cardiology) 09/03/24
--- NOTE | 2024-11-11 09:48 | W.PM.OPSUD ---
Surgery/Procedure H&P Update DATE OF PROCEDURE: November 11, 2024 DATE H&P PERFORMED: 10/28/24 CHANGES TO PREVIOUS DOCUMENTATION: None PREOP DIAGNOSIS: Thyroid nodules PRIMARY INDICATION FOR PROCEDURE: Right hemithyroidectomy PLANNED PROCEDURE: Operation Date: 11/11/24 10:20 Proposed Procedures p Hemithyroidectomy Partial Right Thyroid Lobectomy(Right) - Matias Saenz MD s With or without Isthmusectomy(Right) - Matias Saenz MD
[2024-11-11] MEDS: ceFAZolin 2,000 mg SDV 2000 MG IVP ×2 (10:09→17:48)
[2024-11-11] MEDS: ceFAZolin 1,000 mg SDV 1000 MG IRRIGATION (10:58)
[2024-11-11] MEDS: lidocaine-epi 1% 20 mL INJ INJECTION (10:59)
[2024-11-11] MEDS: thrombin 5,000 unit SDV 5000 UNIT XX (11:21)
--- NOTE | 2024-11-11 11:59 | P.OP_ITS ---
Operative Report Date of procedure: November 11, 2024 Pre-op diagnosis: Right thyroid nodule with suspicious FNA biopsy Post-op diagnosis: same Post-op diagnosis: Same Post-op findings: Right thyroid nodule O/W normal right anterior neck exam Normal/intact right recurrent laryngeal nerve Normal/intact right upper and right lower parathyroid glands Procedure done: Right hemithyroidectomy Implants: None Specimens removed/disposition: Right thyroid lobe Pathology: Right thyroid lobe Surgeon: Matias Saenz Surgeon: Matias Saenz MD Anesthesia: General Estimated blood loss (mL): 10 IV fluids (mL): 1,100 Complications: None Findings: Right thyroid lobe with central nodule Normal/intact right recurrent laryngeal nerve Right upper and lower parathyroid glands preserved in place Condition: stable Disposition: ICU Brief History: 64 yo wf with a h/o a right thyroid nodule with a suspicious FNA biopsy. The patient desires surgical therapy. Procedure: The patient was identified in the preop holding area and was taken to the operating room where she was placed on the operating table in the supine position. Anesthesia was obtained with general endotracheal anesthesia and the patient was intubated with an endotracheal tube with the Nirvana nerve monitoring electrodes placed on it. Once the patient was intubated, the Nirvana electrode was confirmed to be in the proper position using the [place] scope. A horizontal skin incision was marked at 2 fingerbreadths above the patient's sternal notch. This was then then injected with local anesthesia and she was prepped and draped in the usual sterile fashion. The Neurvana nerve monitoring function was confirmed and the incision was made with 15 blade through the skin and the subcutaneous tissues. The patient's strap muscles were then divided in the avascular midline in the sagittal plane. The strap muscles were then dissected off of the right thyroid lobe and the isthmus was dissected off of the trachea. The thyroid isthmus was then divided on its left side with the harmonic scalpel. At this point the right thyroid lobe was visualized and a [place] retractor was placed in the wound. The right thyroid lobe was then dissected free from the surrounding tissues using the Nirvana nerve monitoring hemostat. Prior to dissecting into the tracheoesophageal groove, the nerve monitoring hemostat was used to stimulate the vagus and a positive response was obtained. Attention was turned to the inferior pole which was dissected free from the thyrothymic horn while clipping the attached vessels with ligaclips. The right thyroid lobe was then rotated medially and as the dissection proceeded superiorly the recurrent laryngeal nerve was identified both visually and electrically. While preserving the recurrent laryngeal nerve the right thyroid lobe was dissected free from the tracheoesophageal groove and surrounding tissues until the upper pole was reached. At this point each of the superior pole vessels dissected free from the surrounding tissues and was clipped with ligaclips and divided with bipolar forceps. Aguirre's ligament was identified and while protecting the recurrent laryngeal nerve it was divided off of the trachea using the microbipolar forceps. At this point the right lobe was removed completely from the patient and was inspected for any signs of retained parathyroid glands - none were noted. At this point the wound was inspected for hemostasis which was found to be adequate. Thrombin-soaked Gelfoam was placed in the right tracheoesophageal groove and a drain was placed in the wound. The patient's neck wound was then closed with interrupted 4-0 Monocryl sutures in the subcu and running 5-0 Prolene on the skin. At this point the procedure was terminated and control of the patient was returned to anesthesia where she underwent an uneventful reversal of anesthesia and extubation and was taken to the recovery room in stable condition. There were no operative or anesthetic complications.
--- NOTE | 2024-11-11 12:02 | ANE.PACU2 ---
Inpatient post-anesthesia follow up: Airway intact: Yes Vital signs: Temperature 98.0 F Pulse Rate 94 Respiratory Rate 18 Blood Pressure 108/72 Pulse Oximetry 99 Oxygen Delivery Me thod Nasal Cannula Oxygen Flow Rate Fraction of Inspir ed Oxygen Hydration adequate: Yes Nausea and vomiting: No Pain level: 2 Mental status: Baseline
--- NOTE | 2024-11-11 12:08 | PC.NURSE ---
Patient arrived to ICU 1157. V/S stable
--- NOTE | 2024-11-11 16:50 | P.PN_ITS ---
Subjective Subjective: 64 yo wf who is night of surgery s/p rig ht hemithyroidectomy for a right thyroid nodule with a suspicious FNA biopsy. The patient reports moderate pain, but is o/w without c/o. Medications: Reviewed: Yes Vitals/I&O/Wt Last Vital Signs Temp 98.0 F 11/11/24 12:01 Pulse 83 11/11/24 15:25 Resp 16 11/11/24 15:14 BP 113/66 11/11/24 14:40 Pulse Ox 96 11/11/24 15:14 O2 Del Method Nasal Cannula 11/11/24 15:14 O2 Flow Rate 2 11/11/24 15:14 Weight last 48 hrs Weight 35.607 kg Weight 32.205 kg Physical Exam Const: COMMON NORMALS: no acute distress and patient oriented x3 GENERAL APPEARANCE: cooperative and frail appearing NUTRITIONAL APPEARANCE: cachectic HENMT: COMMON NORMALS: normocephalic, atraumatic and Normal external nose present HEAD & SCALP: normocephalic and atraumatic NOSE: Normal external nose present Eye: COMMON NORMALS: Equal, round and reactive pupils present and no scleral icterus PUPIL: Yes Equal, round and reactive pupils present Neck/C-Spine: COMMON NORMALS: full ROM and supple THYROID: other (Thyroidectomy incisiono intact without swelling.) Lymph: LYMPHATIC: no lymphadenopathy noted Resp: COMMON NORMALS: normal respiratory effort, No retractions and clear to auscultation bilaterally AUSCULTATION: clear to auscultation bilaterally Cardio: COMMON NORMALS: regular rate, regular rhythm, No clicks present (Cardio) and No murmurs present (Cardio) RATE: regular rate RHYTHM: regular rhythm Neuro: COMMON NORMALS: patient oriented x3 Urinary Catheter Management: Rivera: Cath Placed During This Visit: yes Urinary Catheter Date of Insertion: 11/11/24 Urinary Catheter Time of Insertion: 10:50 A&P Assessment and plan (1) Unilateral vocal cord paralysis: Impression: Stable - this preexisted today's surgery Plan: As previously outlined (2) Thyroid nodule greater than or equal to 1 cm in diameter incidentally noted on imaging study: Impression: Doing well s/p right hemithyroidectomy Plan: - ICU observation of the patient's airway overnight - Pain control - Anticipate d/c in the am PDMP PDMP Reviewed: Not Reviewed Attestations Medical Necessity Statement*: The patient requires overnight observation of her airway Coding Level of Care Code Acute Code for Chg Fwd Diagnoses Unilateral vocal cord paralysis J38.01 Thyroid nodule greater than or equal to 1 cm in diameter incidentally noted on imaging study E04.1
[2024-11-11] MEDS: ibuprofen Oral Susp 100 mg/5mL UDC 322 MG PO (19:31)
[2024-11-12] VITALS (53 sets, daily range): BP systolic 87–110; BP diastolic 49–71; PULSE 62–92; RESP 19–30; TEMP 36.9; O2SAT 90–94
[2024-11-12] MEDS: ceFAZolin 2,000 mg SDV 2000 MG IVP (01:08)
--- NOTE | 2024-11-12 05:22 | P.PN_ITS ---
Subjective Subjective: 64 yo wf who is POD #1 s/p right hemithy roidectomy. The patient reports minimal pain, and is o/w without c/o. Medications: Reviewed: Yes Vitals/I&O/Wt Last Vital Signs Temp 98.0 F 11/11/24 12:01 Pulse 74 11/11/24 19:47 Resp 22 H 11/11/24 19:47 BP 113/66 11/11/24 14:40 Pulse Ox 97 11/11/24 19:47 O2 Del Method Nasal Cannula 11/11/24 19:47 O2 Flow Rate 2 11/11/24 19:47 11/11/24 11/11/24 11/12/24 14:59 22:59 06:59 Intake Total 1195 / 1195 Output Total 700 / 700 Balance 495 / 495 Weight last 48 hrs Weight 35.607 kg Weight 32.205 kg Physical Exam Const: COMMON NORMALS: no acute distress and patient oriented x3 GENERAL APPEARANCE: frail appearing HENMT: COMMON NORMALS: normocephalic and atraumatic HEAD & SCALP: normocephalic and atraumatic FACE & SINUS: normal facial exam Eye: COMMON NORMALS: EOMs intact bilaterally and no scleral icterus Neck/C-Spine: COMMON NORMALS: no lymphadenopathy and supple GENERAL: Yes trachea midline THYROID: other (Thyroid incision intact without swelling.) Lymph: LYMPHATIC: no lymphadenopathy noted Resp: COMMON NORMALS: normal respiratory effort, No retractions and clear to auscultation bilaterally AUSCULTATION: clear to auscultation bilaterally Cardio: COMMON NORMALS: regular rate, regular rhythm and No murmurs present (Cardio) RATE: regular rate RHYTHM: regular rhythm Neuro: COMMON NORMALS: patient oriented x3 Urinary Catheter Management: Rivera: Cath Placed During This Visit: yes, but has since been removed by the nurse Urinary Catheter Date of Insertion: 11/11/24 Urinary Catheter Time of Insertion: 10:50 Date Urinary Catheter Removed: 11/11/24 Time Urinary Catheter Discontinued: 21:50 A&P Assessment and plan (1) Thyroid nodule greater than or equal to 1 cm in diameter incidentally noted on imaging study: Impression: POD #1 s/p right hemithyroidectomy doing well Plan: -D/C to home - Empty and record PHUONG drain output once daily - Regular diet - Notify Dr. Saenz for any problems - F/U in Dr. Saenz's office this week - Apply MANNY to the neck wound and drain site TID - Take OTC pain medications as needed PDMP PDMP Reviewed: Not Reviewed Attestations Medical Necessity Statement*: The patient required overnight observation of her airway Coding Level of Care Code Acute Code for Chg Fwd Diagnoses Thyroid nodule greater than or equal to 1 cm in diameter incidentally noted on imaging study E04.1
[2024-11-12] MEDS: ibuprofen Oral Susp 100 mg/5mL UDC 322 MG PO (08:12)
--- NOTE | 2024-11-12 08:20 | PC.NURSE ---
Patient received DC orders. Patient dressed and taken to main exit via wc with staff. All IVs removed. Went over activity and wound care instructions patient verbalized understanding. No new scripts or questions at this time. Patient discharged at 0817. Patient belongings sent with patient.
== END 2024-11-12 08:17 | disposition home or self-care (01) ==
LOC: ICU 12:00
PROVIDERS: Admitting Provider Specialist; PCP Nurse Practitioner; Visit Provider Specialist
PROC: (CPT 60225; principal; 2024-11-11 10:00)
PROC: (CPT 60225; 2024-11-11 10:00)
DX: D34 Benign neoplasm of thyroid gland (principal); J44.9 Chronic obstructive pulmonary disease, unspecified; F17.210 Nicotine dependence, cigarettes, uncomplicated; Z99.81 Dependence on supplemental oxygen; Z79.82 Long term (current) use of aspirin
CPT/HCPCS: 60225; 51702; 88307; 94640; G0378; J0171; J0330; J0690; J1100; J2250; J2405; J2704; J3010; J3490; J3535; J7030; J7120; J7626; J9999

== ENCOUNTER → 2025-02-05 14:23 | Outpatient (BNVA) | payer BC, SELFPAY | PROVIDERS: PCP Nurse Practitioner; Visit Provider Internal Medicine Cardiovascular Disease | DX: R07.9 Chest pain, unspecified (principal); R00.0 Tachycardia, unspecified; I51.7 Cardiomegaly | CPT/HCPCS: 93005 ==

== ENCOUNTER 2025-02-24 01:25 | Emergency (ER) | payer BC, SELFPAY ==
[2025-02-24 01:26] VITALS: BP 99/50; PULSE 105; RESP 26; TEMP 37.8; O2SAT 95; BMI 15.5
[2025-02-24 01:33] VITALS: BP 99/57; PULSE 84; RESP 18; O2SAT 97
--- OUTSIDE RECORDS SUMMARY | 2025-02-24 01:35 | XMS_ITS | Encounter Summary ---
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
--- OUTSIDE RECORDS SUMMARY | 2025-02-24 01:35 | XMS_ITS | Clinical Summary ---
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
--- OUTSIDE RECORDS SUMMARY | 2025-02-24 01:35 | XMS_ITS | Clinical Summary ---
Author Organization [employer] [email or web address] Address [address] Mei: Epic Prelude [place]T [place] [address] Care Team Providers Care Brine Room Laborer Name Role Phone Unavailable Primary Care Provider Unavailabl e Allergies Active Allergy Reactions Criticality Noted Date Comments Codeine Nausea and Vomiting Low 08/26/2023 Morphine Nausea and Vomiting Low 08/26/2023 Medications fluticasone/ume clidin/vilanter (TRELEGY ELLIPTA INHALATION) Take 1 Puff by inhalation daily. Active Social History Tobacco Use Types Packs/Day Years Used Date Smoking Tobacco: Every Day Cigarettes Smokeless Tobacco: Never Tobacco Cessation:Ready to Q uit: Not Asked; Counseling Given: Not Answered Alcohol Use Standard Drinks/Week Comments Not Currently 0 (1 standard drink = 0.6 oz pur e alcohol) Feeling Safe Answer Date Recorded Are you in a relationship wi th someone who hurts you emotionally and/or physically? 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 Gender Identity Not on file Sexual Orientation Not on file Last Filed Vital Signs Vital Sign Reading Time Taken Comments Blood Pressure 92/66 09/06/2023 6:30 PM CDT Pulse 93 09/06/2023 6:30 PM CDT Temperature 36.6 C (97.9 F) 09/06/2023 1:29 PM CDT Respiratory Rate 19 09/06/2023 6:30 PM CDT Oxygen Saturation 91% 09/06/2023 6:30 PM CDT Inhaled Oxygen Concentration - - Weight 36.7 kg (80 lb 12.8 oz) 09/06/2023 1:29 P M CDT Height 167.6 cm (5' 6 ) 09/06/2023 1:29 PM CDT Body Mass Index 13.04 09/06/2023 1:29 PM CDT Plan of Treatment Health Maintenance Due Date Last Done Comments DTAP/TDAP/TD VACCINES (1 - Tdap) 1981 HPV/Cotest (21-29) 1983 CERVICAL CANCER SCREENING 1992 HPV/Cotest (30-65) 1992 PAP SMEAR 1992 BREAST CANCER SCREENING 2002 COLORECTAL SCREENING 2007 Colorectal Cancer Screening 2007 FIT-DNA Q 3 years 2007 FIT/FOBT Q 1 year 2007 Flex Sig/CT Colonography Q 5 years 2007 ZOSTER VACCINE (1 of 2) 2012 RSV VACCINE (60+ or ) (1 - Risk 60-74 years 1-dose series) 2022 INFLUENZA VACCINE (#1) 2024 [facility]
--- OUTSIDE RECORDS SUMMARY | 2025-02-24 01:35 | XMS_ITS | Encounter Summary ---
Author Organization [facility] Address [address] [place] [address] Care Team Providers Care Transition Specialist Name Role Phone Unavailable Primary Care Provider Unavailabl e Encounter Details Date Type Department Care Team (Latest Contact Info) Description 01/21/2002 Outpatient Historical [facility] [place] [address] [facility] [address] [place] [address] Sloan Azevedo MD MELENA, BLOOD IN STOOL (Primary Dx) Social History Tobacco Use Types Packs/Day Years Used Date Smoking Tobacco: Never Assessed Comments Unknown Sex and Gender Information Value Date Recorded Sex Assigned at Not on file 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
[2025-02-24 02:10] LABS: Hematocrit 25.7 % (36-47); Hemoglobin 8.20 g/dL (11.27-16.99); Mean Corpuscular HGB Conc 31.9 g/dL (30-55); Mean Corpuscular Hemoglobin 26.8 pg (27-33); Mean Corpuscular Volume 84.0 fl (85-98); Nucleated Red Blood Cells % 0 %; Platelet Count 301 10^3/cmm (157-399); Red Blood Count 3.06 10^6/uL (3.85-5.65); White Blood Count 13.84 10^3/uL (3.29-11.43)
[2025-02-24 02:25] LABS: Alanine Aminotransferase < 5 U/L (0-33); Albumin Level 2.6 g/dL (3.5-5.2); Alkaline Phosphatase 66 U/L (35-105); Anion Gap 17.1 (5-19); Aspartate Amino Transferase 10 U/L (0-32); Blood Urea Nitrogen 14 mg/dL (8-23); Calcium 7.6 mg/dL (8.5-10.5); Carbon Dioxide 18 mmol/L (22-29); Chloride 101 mmol/L (98-107); Creatinine Clr Calc Pharmacy 78.2745; Globulin 3.1 g/dL (1.3-4.6); Glucose 92 mg/dL (65-115); Osmolality Calculated 276 mOsm/kg (285-295); Potassium 3.1 mmol/L (3.5-5.1); Sodium 133 mmol/L (136-145); Total Protein 5.7 g/dL (6.6-8.7)
--- NOTE | 2025-02-24 02:25 | XRR_ITS ---
PROCEDURE INFORMATION: Exam: XR Chest Exam date and time: 02/24/2025 2:27 AM Age: 64 years old Clinical indication: Cough and fever; Additional info: Fever, cough TECHNIQUE: Imaging protocol: Radiologic exam of the chest. Views: 2 views. COMPARISON: CR XR chest 1V portable [id number] 09/27/2024 2:41 PM FINDINGS: Tubes, catheters and devices: Surgical clips are seen over the right neck. Cholecystectomy clips are seen in the right upper quadrant. Lungs: Emphysematous changes are noted. Interval development of right mid and lower lobe airspace opacities consistent with airspace disease and/or atelectasis. Aspiration can be included in the differential. Pleural spaces: Unremarkable. No pleural effusion. No pneumothorax. Heart/Mediastinum: Unremarkable. No cardiomegaly. Vasculature: Atherosclerotic changes of the aorta are noted. Bones/joints: Unremarkable. XR/XR chest 2V* [id number] IMPRESSION: Interval development of right mid and lower lobe airspace opacities consistent with airspace disease and/or atelectasis. Aspiration can be included in the differential.
[2025-02-24 02:26] LABS: Lactic Sepsis W/Reflex 2.5 mmol/L (0.5-2.2)
--- NOTE | 2025-02-24 02:26 | ED_ITS ---
HPI - General Adult 2 General: Chief complaint: General Medical Stated complaint: uti? Time Seen by Provider: 02/24/25 01:42 History of Present Illness: Patient is a 64-year-old female presenting with a chief complaint of chills, shakes, malaise, right-sided flank pain since Sunday. Patient states she has COPD and has a chronic cough but has not had an increase in cough frequency or sputum production. She denies runny nose, sore throat, worsening shortness of breath from baseline, chest pain. Patient is on 2 L of oxygen at home. Patient states she has had an elevated heart rate at home and her blood pressure was a bit lower than normal at 88 systolic. She states that she takes medication for low blood pressure as her blood pressure usually runs 90 to systolic to 110 systolic. Patient denies abdominal pain, nausea or vomiting. She states that she has had pain with urination but no increase in frequency. She states she had diarrhea x 4 yesterday but no BM today, no blood in stool. She does not have h/o kidney stones. She has had a cholecystectomy. She reports her side right side hurts w/movement. Related Data Previous Rx's ?Medication ?Instructions ?Recorded aspirin 81 mg tablet,delayed 81 mg PO DAILY #90 tabs 0 08/26/20 release (Adult Low Dose Aspirin) albuterol sulfate 90 mcg/actuation 2 puff inhalation Q 6H PRN 10/24/23 aerosol inhaler bronchospasm #8.5 grams nitroglycerin 0.4 mg sublingual 0.4 mg sublingual Q5M PRN chest 08/07/24 tablet pain #25 tabs budesonide 0.5 mg/2 mL suspension 0.5 mg (2 mL) inhala tion BID #60 mL 08/19/24 for nebulization cholecalciferol (vitamin D3) 10 10 mcg PO BID #52 mL 0 10/09/24 mcg/mL (400 unit/mL) oral drops ferrous sulfate 15 mg iron (75 1 ml PO BID #50 mL 09/12 02/05 mg)/mL oral drops lansoprazole 30 mg delayed 30 mg PO DAILY #30 tabs 09/05 release,disintegrating tablet budesonide 160 mcg-glycopyr 9 2 inh inhalation BID #10 .7 grams 12/13/24 mcg-formot 4.8 mcg/actuation HFA inhaler (Breztri Aerosphere) ivabradine 5 mg tablet 5 mg PO BID #180 tabs midodrine 5 mg tablet 5 mg PO TID #270 tabs azithromycin 250 mg tablet See Rx Instructions PO .COM PLEX #6 02/24/25 tabs levofloxacin 750 mg tablet 750 mg PO DAILY 7 days #7 t abs 02/24/25 Allergies Allergy/AdvReac Type Severity Reaction Status Date / Time morphine Allergy ALGY-Hives Verified 02/24/25 01:32 codeine AdvReac ADR-Nausea Verified 02/24/25 01:32 [facility] ED 2 [facility]: Medical History (Updated 02/24/25 @ 04:18 by Magi Harkins MD) Low serum iron Neuralgia, post-herpetic COPD (chronic obstructive pulmonary disease) Alveolar emphysema of lung Surgical History History of hysterectomy History of cholecystectomy Family History Other CAD (coronary artery disease) COPD (chronic obstructive pulmonary disease) Cancer Denies family history of Bleeding disorder Social History Smoking and tobacco/nicotine status: current every day tobacco/nicotine user (1 ppd) cigarettes Packs smoked per day: 1 Years cigarettes smoked: 40 [ Other cigarette details: started at age 21 years] Second hand smoke exposure: Yes Alcohol intake: never Substance/Drug Use: never Adopted: No Caregiver/support person: No Lives independently: Yes Household members: spouse Marital status: Number of children: 3 service: No Current occupational status: employed Current occupation: [employer] Do you think of yourself as: Straight/Heterosexual Current gender identity: Female Physical Exam 2 Narrative: EXAM NARRATIVE: Vitals are reviewed. Initial exam, patient is alert, oriented. Patient is febrile. Patient is not hypotensive considering her baseline blood pressure but she is tachycardic and mildly tachypneic. Patient has a baseline oxygen requirement of 2 L per nasal cannula. She has clear lung sounds bilaterally, normal heart sounds. She has no pain with palpation of her abdomen, abdominal exam is not consistent with peritonitis. She does have right CVA tenderness with percussion of her flank. No pain with percussion of the left CVA. No lower extremity edema, asymmetry, no rash noted. Course 2 Vital Signs: Vital signs: Vital Signs Temperature 100.1 F H 02/24/25 01:26 Pulse Rate 78 02/24/25 03:57 Respiratory Rate 18 02/24/25 03:57 Blood Pressure 94/56 02/24/25 03:57 Pulse Oximetry 97 02/24/25 03:57 Oxygen Delivery Me thod Room Air 02/24/25 03:57 Oxygen Flow Rate 2 02/24/25 01:26 MDM - General Adult Medical Decision Making 62-year-old female presenting with a chief complaint of chills, malaise, burning with urination and right-sided flank pain. She has been feeling ill since Sunday. She has a history of COPD. Differential diagnosis includes, not limited to, viral upper respiratory infection, pneumonia, pancreatitis, gastroenteritis, urinary tract infection, pyelonephritis, kidney stone, appendicitis, other. On exam, patient is not hypotensive considering her baseline blood pressure but she is febrile and tachycardic. She was treated with a bolus of IV fluids per sepsis guidelines, Tylenol and IV Rocephin. She was evaluate CBC, CMP, lactic acid, procalcitonin, blood culture, UA, urine culture, COVID and flu screen. Lab work demonstrates an elevated white blood cell count. Patient is anemic but does not require transfusion at this time. H/H is quite decreased from previous. Patient has normal creatinine and no elevation in anion gap. Lactic acid is mildly elevated which I expect to correct with IV fluids. UA is inconclusive. On reassessment, patient is feeling significantly improved, her heart rate has normalized. Patient has a blood pressure that is baseline for her. At this time, I feel that is reasonable to treat her pulmonary infection at home as noted on chest x-ray. While UTI/pyelonephritis is excluded, levofloxacin should cover both pulmonary and urinary tract infection. Patient feels well enough and comfortable going home at this time. I did prevocational/rehabilitation counselor her on return precautions, gave supportive instructions and advised her to see her regular doctor within 2 to 3 days. Lab Data 02/24/25 02:00 02/24/25 02:00 Radiology Impressions Chest X-Ray 02/24/25 02:25 IMPRESSION: Interval development of right mid and lower lobe airspace opacities consistent with airspace disease and/or atelectasis. Aspiration can be included in the differential. Laboratory Results WBC 13.84 10^3/uL (3.29-11.43) H 02/24/25 02:00 RBC 3.06 10^6/uL (3.85-5.65) L 02/24/25 02:00 Hgb 8.20 g/dL (11.27-16.99) L 02/24/25 02:00 Hct 25.7 % (36-47) L 02/24/25 02:00 MCV 84.0 fl (85-98) L 02/24/25 02:00 MCH 26.8 pg (27-33) L 02/24/25 02:00 MCHC 31.9 g/dL (30-55) 02/24/25 02:00 RDW 15.7 % (12.1-15.1) H 02/24/25 02:00 Plt Count 301 10^3/cmm (157-399) 02/24/25 02:00 MPV 8.8 fL (7.4-10.4) 02/24/25 02:00 Neut % (Auto) 86.8 % 02/24/25 02:00 Lymph % (Auto) 8.2 % 02/24/25 02:00 [place] % (Auto) 3.9 % 02/24/25 02:00 Eos % (Auto) 0.2 % 02/24/25 02:00 Baso % (Auto) 0.3 % 02/24/25 02:00 Neut # (Auto) 12.02 10^3/uL (1.8-7.7) H 02/24/25 02:00 Lymph # (Auto) 1.1 10^3/uL (0.8-4.8) 02/24/25 02:00 [place] # (Auto) 0.5 10^3/uL (0.2-0.9) 02/24/25 02:00 Eos # (Auto) 0.0 10^3/uL (0.0-0.8) 02/24/25 02:00 Baso # (Auto) 0.0 10^3/uL (0.0-0.1) 02/24/25 02:00 Nucleated RBC % (auto) 0 % 02/24/25 02:00 Nucleated RBCs # 0.0 /100WBC 02/24/25 02:00 Sodium 133 mmol/L (136-145) L 02/24/25 02:00 Potassium 3.1 mmol/L (3.5-5.1) L 02/24/25 02:00 Chloride 101 mmol/L (98-107) 02/24/25 02:00 Carbon Dioxide 18 mmol/L (22-29) L 02/24/25 02:00 Anion Gap 17.1 (5-19) 02/24/25 02:00 BUN 14 mg/dL (8-23) 02/24/25 02:00 Creatinine 0.5 mg/dL (0.5-0.9) 02/24/25 02:00 GFR Calculation 125.0 mL/min (90-130) 02/24/25 02:00 Glucose 92 mg/dL (65-115) 02/24/25 02:00 Calculated Osmolality 276 mOsm/kg (285-295) L 02/24/25 02:00 Lactic Acid 2.5 mmol/L (0.5-2.2) H 02/24/25 02:00 Calcium 7.6 mg/dL (8.5-10.5) L 02/24/25 02:00 Total Bilirubin 0.3 mg/dL (0.15-1.2) 02/24/25 02:00 AST 10 U/L (0-32) 02/24/25 02:00 ALT < 5 U/L (0-33) 02/24/25 02:00 Alkaline Phosphatase 66 U/L (35-105) 02/24/25 02:00 Total Protein 5.7 g/dL (6.6-8.7) L 02/24/25 02:00 Albumin 2.6 g/dL (3.5-5.2) L 02/24/25 02:00 Globulin 3.1 g/dL (1.3-4.6) 02/24/25 02:00 Procalcitonin 0.17 ng/mL (0-0.5) 02/24/25 02:00 Urine Color Yellow (Yellow) 02/24/25 03:30 Urine Appearance Turbid (CLEAR) A 02/24/25 03:30 Urine pH 5.5 (5-7) 02/24/25 03:30 Ur Specific Onyx 1.025 (1.005-1.030) 02/24/25 03:30 Urine Protein 1+ (Negative) A 02/24/25 03:30 Urine Glucose (UA) Negative (Normal) 02/24/25 03:30 Urine Ketones Trace (Negative) 02/24/25 03:30 Urine Blood 1+ (Negative) A 02/24/25 03:30 Urine Nitrate Negative (Negative) 02/24/25 03:30 Urine Bilirubin Negative (Negative) 02/24/25 03:30 Urine Urobilinogen 1.0 mg/dL (Negative) 02/24/25 03:30 Ur Leukocyte Esterase 3+ (Negative) A 02/24/25 03:30 Urine RBC 5-10 /hpf (0-2) H 02/24/25 03:30 Urine WBC 15-25 /hpf (0-5) H 02/24/25 03:30 Ur Squamous Epith Cells 15-25 /hpf (0-5) H 02/24/25 03:30 Amorphous Sediment 1+ /hpf 02/24/25 03:30 Urine Bacteria 2+ /hpf (NONE) H 02/24/25 03:30 Urine Mucus 2+ /hpf 02/24/25 03:30 Influenza A (PCR) Negative (Negative) 02/24/25 02:35 Influenza Type B (PCR) Negative (Negative) 02/24/25 02:35 RSV (PCR) Negative (Negative) 02/24/25 02:35 SARS-CoV-2 (PCR) Negative (Negative) 02/24/25 02:35 All radiology interpretation(s) finalized by discharge Discharge Plan Discharge Patient Disposition: Home Clinical Impression: Pneumonia Qualifiers: Pneumonia type: due to unspecified organism Laterality: right Lung location: u nspecified part of lung Qualified Code(s): J18.9 - Pneumonia, unspecified organism Condition: Stable Prescriptions: New azithromycin 250 mg tablet See Rx Instructions .ROUTE .COMPLEX Qty: 6 0RF Rx Instructions: For 250 mg dose pack: take 500 mg today (day 1), then 250 mg for 4 days (days 2-5) levofloxacin 750 mg tablet 750 mg PO DAILY 7 Days Qty: 7 0RF No Action midodrine 5 mg tablet 5 mg PO TID Qty: 270 3RF Rx Instructions: do not give last dose of day after 6PM or within 4 hrs of bedtime ivabradine 5 mg tablet 5 mg PO BID Qty: 180 3RF Rx Instructions: must administer with a meal/food budesonide 0.5 mg/2 mL suspension for nebulization 0.5 mg inhalation BID Qty: 60 0RF ferrous sulfate 15 mg iron (75 mg)/mL drops 1 ml PO BID Qty: 50 2RF cholecalciferol (vitamin D3) 10 mcg/mL (400 unit/mL) drops 10 mcg PO BID Qty: 52 2RF albuterol sulfate 90 mcg/actuation HFA aerosol inhaler 2 puff inhalation Q6H PRN (Reason: bronchospasm) Qty: 8.5 5RF nitroglycerin 0.4 mg tablet, sublingual 0.4 mg sublingual Q5M PRN (Reason: chest pain) Qty: 25 2RF Rx Instructions: do not exceed 3 doses per episode lansoprazole 30 mg tablet,disintegrat, delay rel 30 mg PO DAILY Qty: 30 2RF Breztri Aerosphere 160-9-4.8 mcg/actuation HFA aerosol inhaler 2 inh inhalation BID Qty: 10.7 3RF Rx Instructions: stop Trelegy aspirin [Adult Low Dose Aspirin] 81 mg tablet,delayed release (DR/EC) 81 mg PO DAILY Qty: 90 0RF Discharge Orders: Discharge ED (Routine); Ordered 02/24/25 Ordered By: Magi Harkins Referrals: Irina Caruso, REAL [Primary Care Provider, Family Practice] Patient Instructions: Opioid Safety, Pain Management, Patient Portal & Barb Instructions, Community Acquired Pneumonia (DC) Activity Restrictions/Additional Instructions: Take Tylenol and ibuprofen every 6-8 hours for pain and fever. Please start your antibiotics as prescribed tomorrow. Please continue to monitor your condition very closely at home. If your condition worsens or additional concerns arise, please return to the emergency department for reassessment. Specifically, if you continue to have fever despite taking antibiotics for 2 to 3 days, you start experiencing chest pain, worsening shortness of breath, uncontrolled vomiting or inability to eat or drink at home, worsening back pain please return immediately for reassessment in the emergency department. Please see your primary care physician within 48 to 72 hours for follow up. Please note that you should have a chest x-ray done to confirm resolution of pneumonia in 6 weeks per primary care physician to exclude a more serious underlying process such as cancer. Print Language: Armenian Coding Level of Care Code ED Complex Manager for Efrain Crain
[2025-02-24 02:32] LABS: Procalcitonin 0.17 ng/mL (0-0.5)
[2025-02-24 02:46] VITALS: BP 99/57; PULSE 84; O2SAT 98
[2025-02-24] MEDS: cefTRIAXone 1,000 mg SDV 1000 MG (03:27)
[2025-02-24 03:28] LABS: Respiratory Syncytial Virus Ce NEGATIVE (Negative); SARS-CoV-2 PCR NEGATIVE (Negative)
[2025-02-24 03:42] LABS: Glucose Urine UA Negative (Normal); Nitrate Urine Negative (Negative); Specific Gravity, Urine 1.025 (1.005-1.030)
[2025-02-24 03:54] LABS: Reflex Lactate Order REFLEX LACTIC ORDERD
[2025-02-24 03:57] VITALS: BP 94/56; PULSE 78; RESP 18; O2SAT 97
[2025-02-24 04:05] LABS: Add Urine Microscopic? YES; UA Slide Review UA Slide Review Perf
[2025-02-24 04:35] VITALS: BP 92/57; PULSE 82; RESP 16; O2SAT 97
== END 2025-02-24 04:39 | disposition home or self-care (01) ==
PROVIDERS: Emergency Provider Emergency Medicine; PCP Nurse Practitioner
DX: J18.9 Pneumonia, unspecified organism (principal); Z79.82 Long term (current) use of aspirin; Z11.52 Encounter for screening for COVID-19; F17.210 Nicotine dependence, cigarettes, uncomplicated; J44.9 Chronic obstructive pulmonary disease, unspecified
CPT/HCPCS: 36415; 71046; 80053; 81001; 83605; 84145; 85025; 87040; 87637; 96360; 99284; J0696; J7120; J9999

== ENCOUNTER 2025-03-06 09:12 | Outpatient (CLI) | payer BC, SELFPAY ==
--- NOTE | 2025-03-06 09:15 | USCV_ITS ---
Richelle Allison Age: 64 Gender: F : 1960 Exam Date: 03/06/2025 09:35 Ordering Phys: Kenneth Goncalves MD ([email or web address]) Technologist: Exam Location: [facility] [place] Indication: cp sob BP: 90 / 63 HR: 83 Rhythm: Sinus Technical Quality: Adequate MEASUREMENTS (Male / Female) Normal Values 2D ECHO LV Diastolic Diameter PLAX 3.0 cm 4.2 - 5.9 / 3.9 - 5.3 cm IVS Diastolic Thickness 0.9 cm 0.6 - 1.0 / 0.6 - 0.9 cm IVS Systolic Thickness 1.1 cm LVPW Diastolic Thickness 0.9 cm 0.6 - 1.0 / 0.6 - 0.9 cm LVPW Systolic Thickness 1.3 cm LVOT Diameter 1.5 cm LV Ejection Fraction 2D Teich 59.5 % LV Ejection Fraction MOD 4C 65.5 % LV Ejection Fraction MOD 2C 50.9 % LV Ejection Fraction 2C AL 52.1 % LA Diameter 1.9 cm RA Systolic Volume 4C AL 11.3 ml RA Systolic Volume 4C MOD 11.1 ml Aorta at Sinotubular Diameter 2.0 cm M-MODE LA Ao Ratio MM 1.5 AV Cusp Separation MM 1.4 cm DOPPLER AV Peak Velocity 123.0 cm/s LVOT Peak Velocity 76.0 cm/s AV Area Cont Eq vti 1.2 cm squared AV Area Cont Eq pk 1.1 cm squared MV Peak Velocity 77.3 cm/s TV Peak Velocity 185.5 cm/s TR Peak Velocity 189.0 cm/s TR Peak Gradient 14.3 mmHg TV Peak E Velocity 93.0 cm/s FINDINGS Left Ventricle Normal left ventricular size, systolic function and wall thickness, with no regional wall motion abnormalities. Left ventricular ejection fraction is estimated at 60 %. Normal diastolic function. Right Ventricle Normal right ventricular size and systolic function. Right Atrium Normal right atrial size. Left Atrium Normal left atrial size. IA Septum Normal appearance of the interatrial septum. Mitral Valve Normal mitral valve structure. No mitral valve stenosis or regurgitation. Aortic Valve Normal aortic valve structure. No aortic valve stenosis or regurgitation. Tricuspid Valve Normal tricuspid valve structure. No tricuspid valve stenosis or regurgitation. Normal pulmonary pressure. Pulmonic Valve Normal pulmonic valve structure. No pulmonic valve stenosis or regurgitation. Pericardium No pericardial effusion. Aorta Normal diameter of the aortic root and ascending thoracic aorta. IVC Normal IVC diameter. CONCLUSIONS Normal left ventricular size, systolic function and wall thickness, with no regional wall motion abnormalities. Left ventricular ejection fraction is estimated at 60 %. Normal diastolic function. There is no pericardial effusion. No significant valve abnormalities. Right atrial pressure is around 5 mm of mercury. Kenneth Goncalves MD (Electronically Signed) Final Date: 15 March 2025 18:16 S
== END 2025-03-06 09:13 | disposition home or self-care (01) ==
LOC: RAD 09:13
PROVIDERS: PCP Nurse Practitioner; Visit Provider Internal Medicine Cardiovascular Disease
DX: R00.2 Palpitations (principal); R07.9 Chest pain, unspecified
CPT/HCPCS: 93306

== ENCOUNTER 2025-03-20 15:02 | Outpatient (CLI) | payer BC, SELFPAY ==
[2025-03-20 15:49] LABS: Digoxin 0.3 ng/mL (0.6-1.2)
== END 2025-03-20 15:03 | disposition home or self-care (01) ==
PROVIDERS: PCP Nurse Practitioner; Visit Provider Internal Medicine Cardiovascular Disease
DX: I47.11 Inappropriate sinus tachycardia, so stated (principal)
CPT/HCPCS: 36415; 80162

== ENCOUNTER → 2025-03-25 17:01 | Outpatient (BNVA) | payer BC, SELFPAY | PROVIDERS: PCP Nurse Practitioner; Visit Provider Nurse Practitioner | DX: R06.00 Dyspnea, unspecified (principal) | CPT/HCPCS: 87400; 87426 ==

== ENCOUNTER 2025-04-10 10:15 | Outpatient (CLI) | payer BC, SELFPAY ==
[2025-04-10 12:02] LABS: Digoxin 0.8 ng/mL (0.6-1.2)
== END 2025-04-10 10:16 | disposition home or self-care (01) ==
PROVIDERS: PCP Nurse Practitioner; Visit Provider Nurse Practitioner Family
DX: I47.11 Inappropriate sinus tachycardia, so stated (principal)
CPT/HCPCS: 80162

== ENCOUNTER 2025-05-01 00:02 | Emergency (ER) | payer BC, SELFPAY ==
[2025-05-01 00:05] VITALS: BP 115/59; PULSE 69; RESP 18; TEMP 36.7; O2SAT 100; BMI 12.8
--- OUTSIDE RECORDS SUMMARY | 2025-05-01 00:06 | XMS_ITS | Encounter Summary ---
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
--- OUTSIDE RECORDS SUMMARY | 2025-05-01 00:06 | XMS_ITS | Data Portability ---
Author Organization [place] [facility] [place], ADMIN Address [address] [place] [address] Assessment Encounter Date Assessment Date Assessment LastModified by Organization Details LastModified Time 10/08/2024 10/08/2024 64-year-old aaron hansen presents to the clinic for consultation regarding dysphagia. Patient states that dysphagia began about approximately 4 months ago. During this time patient has lost 22 pounds, because of inability to eat foods other than full liquids. Patient had a biopsy of her vocal cords due to vocal cord paralysis and biopsies of thyroid nodules on Sunday by her ENT Dr. Gallo in [place]. She was sent here for further examination of potential esophageal dysphagia. Patient has never had a previous EGD. Previous colonoscopy was performed 5 years ago she was told to repeat in 1 year I offered to repeat colonoscopy the same time as EGD patient does not feel well enough to undergo bowel prep at this time. Patient has no known family history of gastrointestinal cancers. Patient has acid reflux that is controlled on medications. Patient is currently taking pantoprazole 20 mg on Sunday and Fridays. She is agreeable to begin pantoprazole 40 every day. Patient is a current cigarette smoker she does not consume alcohol. CT of the neck with contrast 09/15/2024: Impression: Suspicion by vocal paralysis recommend further evaluation with endoscopy. No other acute findings Chest x-ray 08/19/2024: Small area of consolidated infiltrate in bilateral lower lung suspicious for active pneumonia. Erosive changes of fibrosis honeycombing in the lateral formations in the mid and lower lung zones Impression: 1. Dysphagia 2. Right vocal cord paralysis, biopsied Sunday 3. Thyroid nodules, biopsied on Sunday 4. GERD 5. No previous EGD 6. Previous colonoscopy 5 years ago 7. History of colon polyps 8. No known family history of gastrointestinal cancers 9. 22 pound weight loss in the past 4 months due to inability to eat anything other than full liquids, per patient --Pt experiences hunger but is unabe to eat 10. Tobacco usage/cigarettes 11. Underweight BMI 11.5 Recommendations: 1. Schedule EGD for evaluation of dysphagia persons earliest convenience 2. Increase pantoprazole to 40 mg p.o. daily 30 minutes prior to 1 major meal per day 3. Antireflux precautions 4. Follow-up with the ENT regarding recent biopsies of vocal cord and thyroid nodule 5. Follow-up in the GI clinic 2 weeks post endoscopic procedures 6. Pt to consider colonoscopy after dysphagia is improved Not available 10/08/2024 21:34:04 11/06/2024 11/06/2024 64-year-old aaron hansen presents to the clinic for follow up regarding dysphagia. She feels that her distal swallowing issue has resolved, but she is still having difficulties at the level of her thyroid. She has recently been diagnosed with thyroid cancer and is having a partial thyroidectomy on 11/11/24 to treat this. I reviewed the results of recent EGD and Pathology reports wtih patient today. Pt states that she went to ER after procedure due to severe throat pain and was prescribed magic mouthwash, she states that the Rx information was incomplete and it took 4 days to fill Rx, she is displeased with this. I advised her to always go to ER for potential emergencies, but to follow up with office after so that we can help to facilitate care. 10/08/24: Patient states that dysphagia began about approximately 4 months ago. During this time patient has lost 22 pounds, because of inability to eat foods other than full liquids. Patient had a biopsy of her vocal cords due to vocal cord paralysis and biopsies of thyroid nodules on Sunday by her ENT Dr. Gallo in [place]. She was sent here for further examination of potential esophageal dysphagia. Patient has never had a previous EGD. Previous colonoscopy was performed 5 years ago she was told to repeat in 1 year I offered to repeat colonoscopy the same time as EGD patient does not feel well enough to undergo bowel prep at this time. Patient has no known family history of gastrointestinal cancers. Patient has acid reflux that is controlled on medications. Patient is currently taking pantoprazole 20 mg on Sunday and Fridays. She is agreeable to begin pantoprazole 40 every day. Patient is a current cigarette smoker she does not consume alcohol. CT of the neck with contrast 09/15/2024: Impression: Suspicion by vocal paralysis recommend further evaluation with endoscopy. No other acute findings Chest x-ray 08/19/2024: Small area of consolidated infiltrate in bilateral lower lung suspicious for active pneumonia. Erosive changes of fibrosis honeycombing in the lateral formations in the mid and lower lung zones Impression: 1. Dysphagia, distal dysphagia improved s/p dilation --Pharyngeal dysphagia persists, thought due to current thyroid malignancy and vocal cord paralysis 2. Right vocal cord paralysis 3. Thyroid nodules, biopsy indicated 4. GERD, well-managed 5. Previous colonoscopy 5 years ago 6. History of colon polyps 7. No known family history of gastrointestinal cancers 8. 22 pound weight loss in the past 4 months due to inability to eat anything other than full liquids, per patient 9. Tobacco usage/cigarettes 10. Underweight BMI 11.4 Recommendations: 1. Consider colonoscopy in the future if patient desires due to unintentional wt loss 2. Continue pantoprazole to 40 mg p.o. daily 30 minutes prior to 1 major meal per day 3. Antireflux precautions 4. Follow-up with the ENT regarding thyroid malignancy 5. Follow-up in the GI clinic as needed based on clinical course [email or web address] Not available 11/06/2024 11:54:47 Plan of Treatment Reminders Order Date Submit Date Provider Last Modified By Organization Details Last Modified Time Details Appointments None recorded. Lab None recorded. Referral None recorded. Procedures upper endoscopy procedure (EGD) (PROC) - Possible Procedures: Take biopsies if indicated, possible variceal banding, possible argon plasma coagulation , possible esophageal dilation, possible snare polypectomy . Pre-Procedu re Orders: 1. Start 20 gauge or larger heparin/ilia ine lock, may use 0.5 ml of 1% lidocaine or topical anesthetic cream. Start IVF of Lactated Ringers at 80 ML/HR. Post Procedure: 1. Vitals every 5 minutes times 3, then every 30 minutes until discharge. 2. Remove IV when tolerating liquids well. 3. Discharge when meets criteria. 4. Schedule Clinic Follow up in 3 weeks CPT: 96610, 41976, 30151, 16713 10/08/ 025 [facility], [address], [place], [address], 13:55:09 Surgeries None recorded. Imaging None recorded. Medication Orders pantoprazol e 40 mg tablet,sriram yed release 2024 025 [facility], [address], [place], [address], 13:34:30 Patient TargetsNo targets recorded. Patient Instructions Encounter Date Encounter Id Patient Instructions Last Modified By Organization Details Last Modified Time 10/08/2024 [id number] learning about swallowing problems [email or web address] Not available 10/08/2024 21:29:25 thyroid nodules: care instructions Not available 10/08/2024 21:29:25 Reason for Referral None Reported. Results Created Date Observation Date Name Description Value Unit Range Abnormal Flag Note LastModifiedBy Organization Detail LastModifiedTime 10/09/1909/15/2024 CT, neck, soft tissu e, w/ contr ast No observ ation record ed. BARCODE Not Available 2024 15:57:42 Result Notes None recorded. Problems Name Problem SNOMED Code Status Onset Date Resolution Date Notes Provider Name and Address Organization Details Recorded Time Gastroesophage al reflux disease without esophagitis 002793560 Active 2024 REKHA RAZOLA NP [address] [facility], [place], [address], [place] [facility] [place] 15:40:48 Dysphagia 67389890 Active 2024 REKHA ARZOLA NP [address] [facility], [place], [address], [place] [facility] [place] 21:29:03 Disorder of the larynx 42464533 Active 2024 REKHA ARZOLA NP [address] [facility], [place], [address], [place] [facility] [place] 21:29:15 Thyroid nodule 729100950 Active 2024 REKHA ARZOLA NP [address] [facility], [place], [address], [address] 21:29:24 Malignant neoplasm of thyroid gland 177407890 Active 2024 Keli Avila LPN null, [address] 10:05:56 Esophageal dysphagia 20096142 Active 2024 REKHA ARZOLA NP [address] [facility], [place], [address], [address] 11:54:54 Problem Notes None recorded. Procedures Surgical History Date Name Laterality Status Provider Name and Address Organization Details Recorded Time cardiac catheterization completed Maggie Goldman lpn [address] 10/08/2024 15:32:53 Cholecystectomy completed Maggie Goldman lpn [address] 10/08/2024 15:33:03 Hysterectomy completed Maggie Goldman lpn [address] 10/08/2024 15:33:15 Imaging Results None recorded. Procedure Notes None recorded. Medical Equipment None Reported. Allergies Allergen ID Allergen Name Allergen Category Reaction Reaction Severity Criticality Documentation Date Start Date Code Code System Note Provider Name and Address Organization Details Recorded Time 769192 codeine medicatio n Not available Not available Not available 10/08/2024 2670 RxNorm zoya Roe null, [address] 15:29:30 058373 morphine medicatio n Not available Not available Not available 10/08/2024 7052 RxNorm zoya Roe null, [address] 15:29:39 Medications Name Sig Start Date Stop Date Status Note LastModified by Organization Details LastModified Time prednisone 10 mg tablet TAKE SIX TABLETS BY MOUTH DAILY FOR 2 DAYS, THEN TAKE FIVE TABLETS DAILY FOR 2 DAYS, THEN TAKE FOUR TABLETS DAILY FOR 2 DAYS; THEN TAKE THREE TABLETS DAILY FOR 2 DAYS, THEN TAKE TWO TABLETS DAILY FOR 2 DAYS, THEN TAKE ONE TABLET DAILY FOR 2 DAYS 10/08 completed Not Available Not Available Not Available doxycycline hyclate 100 mg capsule TAKE ONE CAPSULE BY MOUTH DAILY FOR 10 DAYS 10/08 completed Not Available Not Available Not Available ipratropium 0.5 mg-albutero l 3 mg (2.5 mg base)/3 mL nebulizatio n soln NEBULIZE 1 VIAL INTO LUNGS FOUR TIMES DAILY (RT USE ONLY) FOR TWO WEEKS active Not Available Not Available No t Available azithromyci n 250 mg tablet TAKE ONE TABLET BY MOUTH ON SUNDAY, SUNDAY AND SUNDAY FOR 28 DAYS 10/08 completed Not Available Not Available Not Available hydrocodone 5 mg-acetamin ophen 325 mg tablet TAKE ONE TABLET BY MOUTH EVERY 6 HOURS NEEDED FOR PAIN active Not Available Not Available No t Available prednisone 20 mg tablet TAKE 2 TABLETS BY MOUTH DAILY FOR 4 DAYS, THEN TAKE ONE TABLET DAILY FOR 4 DAYS, THEN TAKE 1/2 TABLET DAILY FOR 4 DAYS, THEN STOP 10/08 completed Not Available Not Available Not Available pantoprazol e 20 mg tablet,sriram yed release TAKE ONE TABLET BY MOUTH DAILY active Not Available Not Available No t Available amoxicillin 875 mg tablet TAKE ONE TABLET BY MOUTH EVERY TWELVE HOURS 10/08 completed Not Available Not Available Not Available pantoprazol e 40 mg tablet,sriram yed release TAKE ONE TABLET BY MOUTH DAILY 30 MINUTES PRIOR TO MAJOR MEAL PER DAY active Not Available Not Available No t Available nitroglycer in 0.4 mg sublingual tablet DISSOLVE 1 TABLET UNDER THE TONGUE EVERY 5 MINUTES NEEDED FOR CHEST PAIN; DO NOT EXCEED 3 DOSES PER EPISODE active Not Available Not Available No t Available budesonide 0.5 mg/2 mL suspension for nebulizatio n NEBULIZE 1 VIAL TWICE DAILY active Not Available Not Available No t Available ergocalcife rol (vitamin D2) 1,250 mcg (50,000 unit) capsule TAKE ONE CAPSULE BY MOUTH MONTHLY active Not Available Not Available No t Available levofloxaci n 500 mg tablet TAKE ONE TABLET BY MOUTH DAILY 10/08 completed Not Available Not Available Not Available levofloxaci n 750 mg tablet TAKE ONE TABLET BY MOUTH EVERY 24 HOURS FOR 7 DAYS 10/08 completed Not Available Not Available Not Available albuterol sulfate HFA 90 mcg/actuati on aerosol inhaler INHALE TWO PUFFS INTO LUNGS EVERY 6 HOURS NEEDED FOR BRONCHOSP ASM active Not Available Not Available No t Available amoxicillin 875 mg-potassiu m clavulanate 125 mg tablet TAKE ONE BY MOUTH TWICE DAILY FOR 3 DAYS 10/08 completed Not Available Not Available Not Available NAC 600 mg capsule TAKE ONE CAPSULE BY MOUTH TWICE DAILY 10/08 completed Not Available Not Available Not Available Keny-In-Pamela 15 mg iron (75 mg)/mL oral drops TAKE ONE ML BY MOUTH TWICE DAILY active Not Available Not Available No t Available Trelegy Ellipta 100 mcg-62.5 mcg-25 mcg powder for inhalation INHALE 1 PUFF INTO LUNGS DAILY 11/06 completed Not Available Not Available Not Available Breztri Aerosphere 160 mcg-9mcg-4. 8mcg/actuat ion HFA aerosol inhaler INHALE 2 PUFFS INTO LUNGS TWICE DAILY active Not Available Not Available No t Available Pediatric D-Joseph 10 mcg/mL (400 unit/mL) oral drops TAKE ONE ML BY MOUTH TWICE DAILY active Not Available Not Available No t Available Vitals Date Recorded Body height Body mass index (BMI) Body weight Oxygen saturation Heart rate Respiratory rate Systolic And Diastolic Provider Name and Address Organization Details Last Updated DateTime 167.64 cm 11.5 kg/m2 70241.0 6 g 96 % 120 /min 20 /min 95/61 mm[Hg] zoya Roe [address] 15:27:04 Date Recorded Body height Body mass index (BMI) Body weight Oxygen saturation Heart rate Provider Name and Address Organization Details Last Updated DateTime 11/06/2024 167.64 cm 11.4 kg/m2 87119.9 g 97 % 95 /min Keli Avila LPN [address] 10:05:28 Social History Question Answer Notes LastModified by Organizat ion Details LastModified Time Tobacco Smoking Status Current Every Day Smoker Maggie Goldman lpn [address] 10/08/2024 15:32:37 What Is Your Level Of Caffeine Consumption? Occasional [email or web address] Information not available 10/08/2024 What Was The Date Of Your Most Recent Tobacco Screening? 11/06/2024 Information not available 11/06/2024 What Is Your Current Pack Years? [email or web address] Information not available 11/06/2024 At What Age Did You Start Smoking Tobacco? 22 [email or web address] Information not available 10/08/2024 How Much Tobacco Do You Smoke? 1 PPD [email or web address] Information not available 10/08/2024 Has Tobacco Cessation Counseling Been Provided? No Information not available 11/06/2024 How Many Years Have You Smoked Tobacco? 40 [email or web address] Information not available 10/08/2024 Sex: Unknown Functional Status Question Answer Note LastModified by Organizat ion Details LastModified Time Do you use any illicit or recreational drugs? No [email or web address] Information not available 10/08/2024 Do you or have you ever used any other forms of tobacco or nicotine? No Information not available 10/08/2024 What is your level of alcohol consumption? None Information not available 10/08/2024 Mental Status None recorded. Family History Relationship Description Onset Age of this Age Resolved Age Notes LastModified by Organization Details LastModified Time Mother Heart disease [email or web address] Not available 2024 15:31:49 Father Malignant neoplastic disease [email or web address] Not available 2024 15:32:00 Medical History Condition Response THYROID DISEASE Y PULMONARY DISEASE Y Gynecological HistoryNo gynecological history recorded. Obstetrics History GPAL:G 0 P 0 0 0 0 Past Encounters Encounter ID Performer Location Encounter Start Date Encounter Closed Date Diagnosis/Indication Diagnosis SNOMED-CT Code Diagnosis ICD10 Code Diagnosis IMO Codes Diagnosis Note [id number] Larry Cedeño MD [facility] [address] [place] [address] 10/08/2024 15:03:46 10/08/2024 16:06:03 Gastroesophageal reflux disease without esophagitis 218496970 K21.9 568308 Dysphagia 60886072 R13.1 0 09768617 Disorder o f the larynx 10291036 J38.01 778303 Thyroid nodule 876747576 E04.1 57480 [id number] Larry Cedeño MD [facility] [address] [place] [address] 11/06/2024 09:55:11 11/06/2024 10:36:03 Esophageal dysphagia 95687730 R13.19 8211 Health Concerns Section Related Observation LastModified by Organization Detai ls LastModified Time None Recorded Concern Status LastModified by Organization Details LastModified Time None Recorded Advance Directives Directive None Recorded Payers Insurance Date Sequence Insurance Name Policy Number Policy Alonzo Covered Member ID Alonzo Member ID Guarantor Name 11/03/2024 1 [facility] JOSHUA MARCE [id number] Allison Peoples [id number] Allison Peoples Notes Date Note Type Note Provider Name and Address Organization Details Recorded Time 10/08/2024 text/html 64-year-old female presents to the clinic for consultation regarding dysphagia. Patient states that dysphagia began about approximately 4 months ago. During this time patient has lost 22 pounds, because of inability to eat foods other than full liquids. Patient had a biopsy of her vocal cords due to vocal cord paralysis and biopsies of thyroid nodules on Sunday by her ENT Dr. Gallo in [place]. She was sent here for further examination of potential esophageal dysphagia. Patient has never had a previous EGD. Previous colonoscopy was performed 5 years ago she was told to repeat in 1 year I offered to repeat colonoscopy the same time as EGD patient does not feel well enough to undergo bowel prep at this time. Patient has no known family history of gastrointestinal cancers. Patient has acid reflux that is controlled on medications. Patient is currently taking pantoprazole 20 mg on Sunday and Fridays. She is agreeable to begin pantoprazole 40 every day. Patient is a current cigarette smoker she does not consume alcohol. CT of the neck with contrast 09/15/2024:Impression: Suspicion by vocal paralysis recommend further evaluation with endoscopy. No other acute findings Chest x-ray 08/19/2024: Small area of consolidated infiltrate in bilateral lower lung suspicious for active pneumonia. Erosive changes of fibrosis honeycombing in the lateral formations in the mid and lower lung zones Impression: 1. Dysphagia 2. Right vocal cord paralysis, biopsied Sunday 3. Thyroid nodules, biopsied on Sunday 4. GERD 5. No previous EGD 6. Previous colonoscopy 5 years ago 7. History of colon polyps 8. No known family history of gastrointestinal cancers 9. 22 pound weight loss in the past 4 months due to inability to eat anything other than full liquids, per patient 10. Tobacco usage/[id number]. Underweight BMI 11.5 Recommendations: 1. Schedule EGD for evaluation of dysphagia persons earliest convenience 2. Increase pantoprazole to 40 mg p.o. daily 30 minutes prior to 1 major meal per day 3. Antireflux precautions 4. Follow-up with the ENT regarding recent biopsies of vocal cord and thyroid nodule 5. Follow-up in the GI clinic 2 weeks post endoscopic procedures6. Pt to consider colonoscopy after dysphagia is improved REKHA ARZOLA NP [address] [facility], [place], [address], [place] [facility] [place] 10/08/2024 21:34:22 11/06/2024 text/html 64-year-old female presents to the clinic for follow up regarding dysphagia. She feels that her distal swallowing issue has resolved, but she is still having difficulties at the level of her thyroid. She has recently been diagnosed with thyroid cancer and is having a partial thyroidectomy on 11/11/24 to treat this. I reviewed the results of recent EGD and Pathology reports wtih patient today. Pt states that she went to ER after procedure due to severe throat pain and was prescribed magic mouthwash, she states that the Rx information was incomplete and it took 4 days to fill Rx, she is displeased with this. I advised her to always go to ER for potential emergencies, but to follow up with office after so that we can help to facilitate care. 10/08/24: Patient states that dysphagia began about approximately 4 months ago. During this time patient has lost 22 pounds, because of inability to eat foods other than full liquids. Patient had a biopsy of her vocal cords due to vocal cord paralysis and biopsies of thyroid nodules on Sunday by her ENT Dr. Gallo in [place]. She was sent here for further examination of potential esophageal dysphagia. Patient has never had a previous EGD. Previous colonoscopy was performed 5 years ago she was told to repeat in 1 year I offered to repeat colonoscopy the same time as EGD patient does not feel well enough to undergo bowel prep at this time. Patient has no known family history of gastrointestinal cancers. Patient has acid reflux that is controlled on medications. Patient is currently taking pantoprazole 20 mg on Sunday and Fridays. She is agreeable to begin pantoprazole 40 every day. Patient is a current cigarette smoker she does not consume alcohol. CT of the neck with contrast 09/15/2024:Impression: Suspicion by vocal paralysis recommend further evaluation with endoscopy. No other acute findings Chest x-ray 08/19/2024: Small area of consolidated infiltrate in bilateral lower lung suspicious for active pneumonia. Erosive changes of fibrosis honeycombing in the lateral formations in the mid and lower lung zones Impression:1. Dysphagia, distal dysphagia improved s/p dilation--Pharyngeal dysphagia persists, thought due to current thyroid malignancy and vocal cord paralysis2. Right vocal cord paralysis3. Thyroid nodules, biopsy indicated4. GERD, well-managed5. Previous colonoscopy 5 years ago6. History of colon polyps7. No known family history of gastrointestinal cancers8. 22 pound weight loss in the past 4 months due to inability to eat anything other than full liquids, per patient9. Tobacco usage/[id number]. Underweight BMI 11.4 Recommendations:1. Consider colonoscopy in the future if patient desires due to unintentional wt loss2. Continue pantoprazole to 40 mg p.o. daily 30 minutes prior to 1 major meal per day3. Antireflux precautions4. Follow-up with the ENT regarding thyroid malignancy5. Follow-up in the GI clinic as needed based on clinical course REKHA ARZOLA NP [address] [facility], [place], [address], [facility] [place] 11/06/2024 11:55:05 OBGyn Episode No OBEpisode recorded.
--- OUTSIDE RECORDS SUMMARY | 2025-05-01 00:06 | XMS_ITS | Clinical Summary ---
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
--- OUTSIDE RECORDS SUMMARY | 2025-05-01 00:06 | XMS_ITS | Encounter Summary ---
Author Organization [facility] Address [address] [place] [address] Care Team Providers Care Rfid Analyst Name Role Phone Unavailable Primary Care Provider Unavailabl e Encounter Details Date Type Department Care Team (Latest Contact Info) Description 01/21/2002 Outpatient Historical [facility] Medicine [place] [address] [address] Sloan Azevedo MD MELENA, BLOOD IN STOOL (Primary Dx) Social History Tobacco Use Types Packs/Day Years Used Date Smoking Tobacco: Never Assessed Comments Unknown Sex and Gender Information Value Date Recorded Sex Assigned at Not on file 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
--- OUTSIDE RECORDS SUMMARY | 2025-05-01 00:06 | XMS_ITS | Clinical Summary ---
Author Organization [place] Address [address] [facility] Attn: Epic Prelude ADT [place] [address] Care Team Providers Care Fundraising Consultant Name Role Phone Unavailable Primary Care Provider [...] on file Legal Sex Female 12:49 AM [employer] Gender Identity Not on file Sexual Orientation [...] Flex Sig/CT Colonography Q 5 years 2007 RSV VACCINE (60+ or ) (1 - Risk 50-74 years 1-dose series) 2012 ZOSTER VACCINE (1 of 2) 2012 INFLUENZA VACCINE (#1) 2024 Insurance [facility] VFA
[2025-05-01 00:30] VITALS: BP 100/79; PULSE 74; O2SAT 99
--- NOTE | 2025-05-01 00:38 | XRR_ITS ---
PROCEDURE INFORMATION: Exam: XR Chest Exam date and time: 05/01/2025 12:46 AM Age: 65 years old Clinical indication: Pain; Angina pectoris; Additional info: Cp TECHNIQUE: Imaging protocol: Radiologic exam of the chest. Views: 1 view. COMPARISON: CR XR chest 2V* [id number] 02/24/2025 2:27 AM FINDINGS: Lungs: Emphysema with hyperinflation and flattening of the diaphragms, consistent with COPD. Worsening consolidation in the right mid lung and improving consolidation in the right lower lung. Persistent pneumonia is present. Pleural spaces: Unremarkable. No pleural effusion. No pneumothorax. Heart/Mediastinum: Unremarkable. No cardiomegaly. Bones/joints: Unremarkable. XR/XR chest 1V portable [id number] IMPRESSION: 1. Emphysema with hyperinflation and flattening of the diaphragms, consistent with COPD. 2. Worsening consolidation in the right mid lung and improving consolidation in the right lower lung. Persistent pneumonia is present.
[2025-05-01 01:01] VITALS: BP 90/52; PULSE 67; O2SAT 98
[2025-05-01 01:03] LABS: Hematocrit 31.0 % (36-47); Hemoglobin 9.80 g/dL (11.27-16.99); Mean Corpuscular HGB Conc 31.6 g/dL (30-55); Mean Corpuscular Hemoglobin 26.6 pg (27-33); Mean Corpuscular Volume 84.0 fl (85-98); Nucleated Red Blood Cells % 0 %; Platelet Count 176 10^3/cmm (157-399); Red Blood Count 3.69 10^6/uL (3.85-5.65); White Blood Count 12.10 10^3/uL (3.29-11.43)
--- NOTE | 2025-05-01 01:20 | W.ED.CHESTPA ---
HPI - Chest Pain General: Chief Complaint: Chest Pain Stated Complaint: cp Time Seen by Provider: 05/01/25 00:09 History of Present Illness: Patient is a 65-year-old female with past medical history of COPD on 2 L oxygen baseline, GERD, A-fib who presents to the ED with chest pain. Describes it as diffuse, sharp, nonradiating, not associated with worsening shortness of breath or exertion. When EMS arrived, she was breathing very quick and seemed very anxious, after some conversation, she seemed to improve. She denies any recent fevers, cough worse than normal however with sputum production, abdominal pain, NVD, urinary changes. Related Data Previous Rx's ?Medication ?Instructions ?Recorded aspirin 81 mg tablet,delayed 81 mg PO DAILY #90 tabs 08/26/20 release (Adult Low Dose Aspirin) albuterol sulfate 90 mcg/actuation 2 puff inhalation Q6H PRN 10/24/23 aerosol inhaler bronchospasm #8.5 grams nitroglycerin 0.4 mg sublingual 0.4 mg sublingual Q5M PRN chest 08/07/24 tablet pain #25 tabs budesonide 0.5 mg/2 mL suspension 0.5 mg (2 mL) inhalation BID #60 mL 08/19/24 for nebulization cholecalciferol (vitamin D3) 10 10 mcg PO BID #52 mL 10/09/24 mcg/mL (400 unit/mL) oral drops ferrous sulfate 15 mg iron (75 1 ml PO BID #50 mL 10/09/24 mg)/mL oral drops lansoprazole 30 mg delayed 30 mg PO DAILY #30 tabs 10/15/24 release,disintegrating tablet midodrine 5 mg tablet 5 mg PO TID #270 tabs 02/05/25 prednisone 20 mg tablet 40 mg (2 x 20 mg) PO DAILY 5 days 03/25/25 #10 tabs albuterol sulfate 2.5 mg/3 mL 2.5 mg (3 mL) inhalation Q4H PRN 03/31/25 (0.083 %) solution for nebulization shortness of breath or wheezing #180 mL digoxin 125 mcg (0.125 mg) tablet 187.5 mcg (1.5 x 125 mcg (0.125 04/02/25 mg)) PO DAILY #60 tabs budesonide 160 mcg-glycopyr 9 2 inh inhalation BID #10.7 grams 04/09/25 mcg-formot 4.8 mcg/actuation HFA inhaler (Breztri Aerosphere) amoxicillin 875 mg-potassium 1 tab PO BID #14 tabs 05/01/25 clavulanate 125 mg tablet Allergies Allergy/AdvReac Type Severity Reaction Status Date / Time morphine Allergy ALGY-Hives Verified 05/01/25 00:12 codeine AdvReac ADR-Nausea Verified 05/01/25 00:12 Review of Systems General: Reports: 10 or more systems reviewed and unremarkable except in HPI and below PFSH ED PFSH: Medical History (Updated 05/01/25 @ 02:28 by Camilo Andre DO) Low serum iron Neuralgia, post-herpetic COPD (chronic obstructive pulmonary disease) Alveolar emphysema of lung Surgical History History of hysterectomy History of cholecystectomy Family History Other CAD (coronary artery disease) COPD (chronic obstructive pulmonary disease) Cancer Denies family history of Bleeding disorder Social History Smoking and tobacco/nicotine status: current every day tobacco/nicotine user (1 ppd) cigarettes Packs smoked per day: 1 Years cigarettes smoked: 40 [ Other cigarette details: started at age 21 years] Second hand smoke exposure: Yes Alcohol intake: never Substance/Drug Use: never Adopted: No Caregiver/support person: No Lives independently: Yes Household members: spouse Marital status: Number of children: 3 service: No Current occupational status: employed Current occupation: [employer] Do you think of yourself as: Straight/Heterosexual Current gender identity: Female Physical Exam Narrative: EXAM NARRATIVE: Patient then, vitals stable on arrival, afebrile, no acute distress. Saturating in low 90s on home 2 L, mildly tachypneic but overall breathing comfortably, speaking in full sentences without getting short of breath, distant coarse breath sounds but no wheezes or crackles. Normal sinus rhythm with no murmurs, no leg swelling, good cap refill. Abdomen soft, nontender nondistended. Course Vital Signs: Vital signs: Vital Signs Temperature 98.1 F 05/01/25 00:05 Pulse Rate 63 05/01/25 02:00 Respiratory Rate 18 05/01/25 00:05 Blood Pressure 89/47 05/01/25 02:00 Pulse Oximetry 98 05/01/25 02:00 Oxygen Delivery Me thod Room Air 05/01/25 02:00 Oxygen Flow Rate 2 05/01/25 00:05 MDM - Chest Pain Medical Decision Making -ddx: ACS, pneumonia, URI, COPD exacerbation, pericarditis, anxiety - Patient overall well-appearing, with seemingly abrupt nonradiating, nonexertional chest pain that started today abruptly, was pretty anxious with this. No recent infectious-like symptoms. No recent provocative cardiac testing. Will initiate cardiac/infectious workup, chest x-ray and reassess - Patient ultimately with reassuring workup, did have a mild leukocytosis and possible infiltrate in her right middle lung, she previously had 1 in her right lower lung that was seemingly improved. EKG and troponins not concerning for acute ischemia, no severe electrolyte abnormality, patient's respiratory status showed no signs of deterioration. With her pain being completely abated, she was given watchful wait antibiotics for possible pneumonia with her leukocytosis and consolidation but no actual infectious symptoms but possibly with this chest pain today, patient understanding and discharged in stable condition with at bedside and will follow-up in a few days. Lab Data 05/01/25 00:53 05/01/25 00:53 Radiology Impressions Chest X-Ray 05/01/25 00:38 IMPRESSION: 1. Emphysema with hyperinflation and flattening of the diaphragms, consistent with COPD. 2. Worsening consolidation in the right mid lung and improving consolidation in the right lower lung. Persistent pneumonia is present. Laboratory Results WBC 12.10 10^3/uL (3.29-11.43) H 05/01/25 00:53 RBC 3.69 10^6/uL (3.85-5.65) L 05/01/25 00:53 Hgb 9.80 g/dL (11.27-16.99) L 05/01/25 00:53 Hct 31.0 % (36-47) L 05/01/25 00:53 MCV 84.0 fl (85-98) L 05/01/25 00:53 MCH 26.6 pg (27-33) L 05/01/25 00:53 MCHC 31.6 g/dL (30-55) 05/01/25 00:53 RDW 17.4 % (12.1-15.1) H 05/01/25 00:53 Plt Count 176 10^3/cmm (157-399) 05/01/25 00:53 MPV 9.7 fL (7.4-10.4) 05/01/25 00:53 Neut % (Auto) 78.0 % 05/01/25 00:53 Lymph % (Auto) 14.0 % 05/01/25 00:53 [place] % (Auto) 7.1 % 05/01/25 00:53 Eos % (Auto) 0.0 % 05/01/25 00:53 Baso % (Auto) 0.4 % 05/01/25 00:53 Neut # (Auto) 9.43 10^3/uL (1.8-7.7) H 05/01/25 00:53 Lymph # (Auto) 1.7 10^3/uL (0.8-4.8) 05/01/25 00:53 [place] # (Auto) 0.9 10^3/uL (0.2-0.9) 05/01/25 00:53 Eos # (Auto) 0.0 10^3/uL (0.0-0.8) 05/01/25 00:53 Baso # (Auto) 0.1 10^3/uL (0.0-0.1) 05/01/25 00:53 Nucleated RBC % (auto) 0 % 05/01/25 00:53 Nucleated RBCs # 0.0 /100WBC 05/01/25 00:53 Sodium 134 mmol/L (136-145) L 05/01/25 00:53 Potassium 3.9 mmol/L (3.5-5.1) 05/01/25 00:53 Chloride 99 mmol/L (98-107) 05/01/25 00:53 Carbon Dioxide 24 mmol/L (22-29) 05/01/25 00:53 Anion Gap 14.9 (5-19) 05/01/25 00:53 BUN 13 mg/dL (8-23) 05/01/25 00:53 Creatinine 0.6 mg/dL (0.5-0.9) 05/01/25 00:53 GFR Calculation 101.0 mL/min (90-130) 05/01/25 00:53 Glucose 100 mg/dL (65-115) 05/01/25 00:53 Calculated Osmolality 278 mOsm/kg (285-295) L 05/01/25 00:53 Calcium 9.0 mg/dL (8.5-10.5) 05/01/25 00:53 Troponin T Baseline 9 ng/L (0-10) 05/01/25 00:53 Troponin T 60 Minute 9.65 ng/L (0-10) 05/01/25 02:10 Delta Troponin T 0.65 ABS# (0-10) 05/01/25 02:10 NT-Pro-B Natriuret Pep 73 pg/mL (0-125) 05/01/25 00:53 All radiology interpretation(s) finalized by discharge Clincial Decision Support The following clinical decision support tools were used to aid in care of the patient HEART Score -> History: Moderately Suspicious, EKG: Normal, Age: 45-64 yrs, Risk Factors: 1 or 2 Risk Factors, Troponin: Baseline Trop <16 ng/L. Resulting HEART Score: 3. Discharge Plan Discharge Patient Disposition: Home Clinical Impression: SOB (shortness of breath), Pneumonia, Stable angina Condition: Stable Prescriptions: New amoxicillin-pot clavulanate 875-125 mg tablet 1 tab PO BID Qty: 14 0RF No Action midodrine 5 mg tablet 5 mg PO TID Qty: 270 3RF Rx Instructions: do not give last dose of day after 6PM or within 4 hrs of bedtime budesonide 0.5 mg/2 mL suspension for nebulization 0.5 mg inhalation BID Qty: 60 0RF ferrous sulfate 15 mg iron (75 mg)/mL drops 1 ml PO BID Qty: 50 2RF cholecalciferol (vitamin D3) 10 mcg/mL (400 unit/mL) drops 10 mcg PO BID Qty: 52 2RF albuterol sulfate 90 mcg/actuation HFA aerosol inhaler 2 puff inhalation Q6H PRN (Reason: bronchospasm) Qty: 8.5 5RF nitroglycerin 0.4 mg tablet, sublingual 0.4 mg sublingual Q5M PRN (Reason: chest pain) Qty: 25 2RF Rx Instructions: do not exceed 3 doses per episode prednisone 20 mg tablet 40 mg PO DAILY 5 Days Qty: 10 0RF lansoprazole 30 mg tablet,disintegrat, delay rel 30 mg PO DAILY Qty: 30 2RF albuterol sulfate 2.5 mg /3 mL (0.083 %) solution for nebulization 2.5 mg inhalation Q4H PRN (Reason: shortness of breath or wheezing) Qty: 180 2RF digoxin 125 mcg (0.125 mg) tablet 187.5 mcg PO DAILY Qty: 60 1RF Breztri Aerosphere 160-9-4.8 mcg/actuation HFA aerosol inhaler 2 inh inhalation BID Qty: 10.7 3RF Rx Instructions: stop Trelegy aspirin [Adult Low Dose Aspirin] 81 mg tablet,delayed release (DR/EC) 81 mg PO DAILY Qty: 90 0RF Discharge Orders: Discharge ED (Routine); Ordered 05/01/25 Ordered By: Camilo Andre Referrals: Irina Caruso, MEDICAL TRANSCRIPTIONIST-C [Primary Care Provider, [facility]] Discharge Diet: Advance as tolerated Discharge Activity: Increase activity as tolerated Patient Instructions: Opioid Safety, Pain Management, Patient Portal & Barb Instructions Activity Restrictions/Additional Instructions: You were seen for your chest pain and shortness of breath, you were evaluated with an x-ray, EKG and laboratory studies that were ultimately reassuring for no cardiac events today. Your chest x-ray did show a possible new area of pneumonia but because you do not have symptoms of an infection at this time, you will not be started on antibiotics but because there is moderate possibility that it is just too early, you will be given antibiotics to take if you start feeling the symptoms of pneumonia: Fevers, fatigue, cough with mucus production. In a week's time, follow-up with your primary care physician for reevaluation of your possible infection and overall breathing status. Return to the ED with severe worsening of your chest pain, breathing difficulties, episodes of passing out, fevers that do not improve with Tylenol, inability to eat or drink, any other emergent concerns. Print Language: Jordanian Coding Level of Care Code ED [facility] Washer for Efrain Fwd Heart Score HEART Score Components History: Moderately Suspicious EKG: Normal Age: 45-64 yrs Risk Factors: 1 or 2 Risk Factors Troponin: Baseline Trop <16 ng/L HEART Score RESULT HEART Score: 3
[2025-05-01 01:24] LABS: Troponin(5th) Baseline 9 ng/L (0-10)
[2025-05-01 01:30] VITALS: BP 95/61; PULSE 66; O2SAT 99
[2025-05-01 01:33] LABS: Anion Gap 14.9 (5-19); Blood Urea Nitrogen 13 mg/dL (8-23); Calcium 9.0 mg/dL (8.5-10.5); Carbon Dioxide 24 mmol/L (22-29); Chloride 99 mmol/L (98-107); Glucose 100 mg/dL (65-115); NT Pro B Type Natriuretic Pept 73 pg/mL (0-125); Osmolality Calculated 278 mOsm/kg (285-295); Potassium 3.9 mmol/L (3.5-5.1); Sodium 134 mmol/L (136-145)
--- NOTE | 2025-05-01 01:42 | ECG_ITS ---
DxTerity Test Date: 2025-05-01 Pat Name: Allison Peoples Department: Room: Gender: Female Publication Specialist: : [id number] Requested By: Camilo Andre Order Number: [id number] Reading MD: Measurements Intervals [place] Rate: 62 P: 85 TX: 155 QRS: 85 QRSD: 89 T: 71 QT: 359 QTc: 365 Interpretive Statements SINUS RHYTHM POSSIBLE LEFT ATRIAL ENLARGEMENT [-0.1mV P-WAVE IN V1/V2] [email or web address]
[2025-05-01 02:00] VITALS: BP 89/47; PULSE 63; O2SAT 98
== END 2025-05-01 03:02 | disposition home or self-care (01) ==
PROVIDERS: Emergency Provider Student in an Organized Health Care Education/Training Program; PCP Nurse Practitioner
DX: R06.02 Shortness of breath (principal); J18.9 Pneumonia, unspecified organism; I20.89 Other forms of angina pectoris; Z79.82 Long term (current) use of aspirin; F17.210 Nicotine dependence, cigarettes, uncomplicated; J44.9 Chronic obstructive pulmonary disease, unspecified; Z99.81 Dependence on supplemental oxygen
CPT/HCPCS: 36415; 71045; 80048; 83880; 84484; 85025; 93005; 99285

== ENCOUNTER → 2025-05-13 12:15 | Outpatient (BNVA) | payer BC, SELFPAY | PROVIDERS: PCP Nurse Practitioner; Visit Provider Nurse Practitioner Family | DX: I47.11 Inappropriate sinus tachycardia, so stated (principal) | CPT/HCPCS: 80162 ==